=== PATIENT | male | born 1950 | race African-American/Black ===

== ENCOUNTER 2017-01-08 05:15 | Inpatient (IN) | payer MEDICARE, BC ==
--- NOTE | 2017-01-03 12:44 | Diagnostic Imaging Report ---
Indication: Dyspnea Comparison: 09/20/13 2 views of the chest obtained. Findings: Cardiomediastinal silhouette and pulmonary vascularity are within normal limits for age. The diaphragmatic contour is smooth and costophrenic angles are sharp. No pleural effusions are identified. The bones are unremarkable. Impression: No acute disease
[~2017-01-08] VITALS: Ht 175.3 cm; Wt 96.6 kg
[2017-01-08] VITALS (13 sets, daily range): BP systolic 125–147; BP diastolic 72–88
[~2017-01-08 05:15] MED LIST: ACTOS45 MG ORAL; ASPIR 8181 MG ORAL; AZOR 10-40 MG1 EACH ORAL; BYSTOLIC20 MG ORAL; COLCHICINE0.6 MG ORAL; HYDRALAZINE HC100 MG ORAL; JANUVIA100 MG ORAL; LANTUS SOL100 UNIT/1 SUBQ; LIPITOR80 MG ORAL
[2017-01-08] MEDS ORDERED: Morphine Sulfate PF 10 ML ONE (06:32)
[2017-01-08] MEDS ORDERED: Ropivacaine 5mg/ml Vial 20ml INJ ONE (06:32)
[2017-01-08] MEDS ORDERED: Bupivacaine 0.5% Inj 30 ml vial INJ ONE (06:32)
[2017-01-08] MEDS ORDERED: Bacitracin 50000 Units Vial ONE (06:47)
--- NOTE | 2017-01-08 07:28 | Pre-Procedure Note/Attestation ---
Pre-Procedure Note/Attestation Complete Prior to Procedure Planned Procedure: right Procedure Narrative: right knee replacement Indications for Procedure Pre-Operative Diagnosis: right knee arthritis Attestation I attest that I discussed the nature of the procedure; its benefits; risks and complications; and alternatives (and the risks and benefits of such alternatives ), prior to the procedure, with the patient (or the patient's legal veterans service representative). I attest that, if there was a reasonable possibility of needing a blood transfusion, the patient (or the patient's legal veterans service representative) was given the [facility] standardized written summary, pursuant to the [place] Blood Safety Act ([place] Health and Safety Code # 1645, as amended). I attest that I re-evaluated the patient just prior to the surgery and that there has been no change in the patient's H&P, except as documented below: ADELAIDA MOORE Jan 08, 2017 07:28
[2017-01-08] MEDS ORDERED: Meperidine 25mg/ml Inj IV PRN (07:30)
[2017-01-08] MEDS ORDERED: Metoclopramide 10mg/2ml Inj IVP PRN (07:30)
[2017-01-08] MEDS ORDERED: Oxycodone/Acetaminophen 5-325 ORAL PRN (07:30)
[2017-01-08] MEDS ORDERED: Norco 5mg/325mg tab ORAL PRN (07:30)
[2017-01-08] MEDS ORDERED: Hydromorphone 0.5mg/0.5ml inj IVP PRN (07:30)
[2017-01-08] MEDS ORDERED: LR 1000ml 1,000 ML IVLG SCH (07:30)
[2017-01-08] MEDS ORDERED: LORazepam Inj 2mg/ml 1ml IV PRN (07:30)
[2017-01-08] MEDS ORDERED: Midazolam 2mg/2ml Inj IVP PRN (07:30)
[2017-01-08] MEDS ORDERED: Ketorolac 30mg Inj IV PRN (07:30)
[2017-01-08] MEDS ORDERED: DiphenhydrAMINE 50mg/ml Inj IVP PRN (07:30)
[2017-01-08] MEDS ORDERED: Ketorolac 60mg Inj IV PRN (07:30)
[2017-01-08] MEDS ORDERED: fentaNYL 100 mcg/2 mL IV PRN (07:30)
[2017-01-08] MEDS ORDERED: Norco 7.5mg/325mg tab ORAL PRN (07:30)
[2017-01-08] MEDS ORDERED: Atropine Inj 1mg/10ml Syr IV PRN (07:30)
[2017-01-08] MEDS ORDERED: Labetalol 5mg/ml 20ml vial IV PRN (07:30)
[2017-01-08] MEDS ORDERED: Morphine Sulfate 2mg/ml Inj IVP PRN ×2 (07:30)
--- NOTE | 2017-01-08 07:30 | Anethesia Preoperative Eval ---
Anesthesia Pre-op PMH/ROS General Date of Evaluation: Jan 08, 2017 Time of Evaluation: 07:41 Anesthesiologist: Rah ASA Score: ASA 3 Mallampati Score Class I : Soft palate, uvula, fauces, pillars visible Class II: Soft palate, uvula, fauces visible Class III: Soft palate, base of uvula visible Class IV: Only hard plate visible Mallampati Classification: Class III Surgeon: Ac Diagnosis: R Knee Pain Surgical Procedure: R Knee Arthroplasty Anesthesia History: none Family History: no anesthesia problems Allergies: Coded Allergies: No Known Allergies (Verified Allergy, Mild, 09/15/09) Medications: see eMAR Past Medical History Cardiovascular: Reports: HTN, other - HL Endocrine: Reports: DM - FBS 365, will rx with insulin HEENT: Reports: cataract (L), cataract (R), glaucoma, other - Diabetic retinopathy Other: obesity - BMI 32 PSxH Narrative: Cataract SX Anesthesia Pre-op Phys. Exam Physician Exam Last Vital Signs Date Time Temp Pulse Resp B/P Pulse Ox O2 Delivery O2 Flow Rate FiO2 01/08/17 06:07 98.0 70 18 130/73 100 Room Air Constitutional: NAD Neurologic: CN 2-12 intact Cardiovascular: RRR Respiratory: CTA Gastrointestinal: S/NT/ND Airway Exam Mallampati Score: Class III MO: full ROM: limited Teeth: missing, intact Anesthesia Pre-op A/P Risk Assessment & Plan Assessment: ASA 3 Plan: GA, Spinal, R Adductor Block, BIS Status Change Before Surgery: No Pre-Antibiotics Dru Grams Ancef IV Given Within 1 Hr of Incision: Yes Time Given: 08:11 Galindo Monreal MD Jan 08, 2017 07:30
--- NOTE | 2017-01-08 07:32 | Immediate Post-Op Evaluation ---
Immediate Post-Op Evalulation Immediate Post-Op Evalulation Procedure: R Knee Arthroplasty Date of Evaluation: Jan 08, 2017 Time of Evaluation: 10:05 IV Fluids: 1100 Blood Products: 0 Estimated Blood Loss: 37 Urinary Output: 200 Blood Pressure Systolic: 132 Blood Pressure Diastolic: 76 Pulse Rate: 75 Respiratory Rate: 16 O2 Sat by Pulse Oximetry: 100 Temperature (Fahrenheit): 97 Pain Score (1-10): 1 Nausea: No Vomiting: No Complications 0 Patient Status: awake, reacts, patent, none Hydration Status: adequate Dru Grams Ancef IV Given Within 1 Hr of Incision: Yes Time Given: 08:11 Galindo Monreal MD Jan 08, 2017 07:32
[2017-01-08] MEDS ORDERED: Alfentanil 2ml Inj ONE (07:40)
[2017-01-08] MEDS ORDERED: LR 1000ml ONE (07:40)
[2017-01-08] MEDS ORDERED: Lidocaine 1% MPF 10mg/ml 5ml ONE (07:40)
[2017-01-08] MEDS ORDERED: Propofol 10mg/ml 20ml IV ONE (07:40)
[2017-01-08] MEDS ORDERED: Midazolam 2mg/2ml Inj ONE (07:40)
[2017-01-08] MEDS ORDERED: Tranexamic Acid 1,000 MG in NS 65 ML IVPB ONE (09:00)
--- NOTE | 2017-01-08 09:20 | Brief Operative Note ---
Immediate Post Operative Note Operative Note Pre-op Diagnosis: right knee arthritis Procedure: right knee pain Post-op Diagnosis: right knee repalcement Post-op Diagnosis: same as pre-op Surgeon: nati Anesthesia: general Specimen: yes Complications: none Condition: stable Estimated Blood Loss: minimal Drains: none Tourniquet time: 0 Implant(s) used?: Yes ADELAIDA MOORE Jan 08, 2017 09:20
[2017-01-08] MEDS ORDERED: D5W 250 ML IVPB ONE (11:00)
--- NOTE | 2017-01-08 11:51 | Diagnostic Imaging Report ---
Indication: PREOP, pain Technique: 3 views of the right knee Comparison: CT scan dated 07/24/2016 Findings:There is a superior pole patellar osteophyte. There are are degenerative changes of the lateral joint compartment. This appears slightly worse than on the prior CT There 2 ossific densities are seen posteriorly on the lateral view. 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 This questionably a small suprapatellar effusion. Impression:No acute process. Findings as noted above, including degenerative changes as described
[2017-01-08 14:51] LABS: MEAN CORPUSCULAR HEMOGLOBIN 28.1 PG (27.0-31.0); MEAN CORPUSCULAR HGB CONC 32.4 G/DL (32.0-36.0); MEAN CORPUSCULAR VOLUME 87 FL (80-99); MEAN PLATELET VOLUME 8.4 FL (6.5-10.1); PLATELET COUNT 210 K/UL (150-450); RED BLOOD COUNT 4.34 M/UL (4.70-6.10); RED CELL DISTRIBUTION WIDTH 11.6 % (11.6-14.8); WHITE BLOOD COUNT 11.3 K/UL (4.8-10.8)
[2017-01-08 15:54] LABS: BAND NEUTROPHILS % (MANUAL) 3 % (0-8); LYMPHOCYTES % (MANUAL) 5 % (20-45); NEUTROPHILS % (MANUAL) 90 % (45-75); TOTAL CELLS COUNTED 100
[2017-01-08 15:55] LABS: BASOPHILS % (MANUAL) 0 % (0-2); EOSINOPHILS % (MANUAL) 0 % (0-3); PLATELET ESTIMATE ADEQUATE; PLATELET MORPHOLOGY NORMAL
--- NOTE | 2017-01-08 16:16 | Diagnostic Imaging Report ---
Indications: Postoperative Technique: Two views of the right knee Comparison:None Findings: Two postoperative views of the right knee demonstrate total knee arthroplasty, good anatomic alignment of the prosthesis. There is postsurgical soft tissue air. Overlying skin tigre. Impression: Postoperative right knee, no unusual features.
--- NOTE | 2017-01-08 16:24 | General Progress Note ---
Assessment/Plan Assessment/Plan TKR OA CRF DM HTN HHD Obesity PLAN 1. incentive spirometry 2. Lovenox in am 3. PT evaluation and therapy 4. Hydration 5. Pain management 6. discharge once stable with outpatient follow up 7. resume home meds 8. SSI 9. blood pressure support Subjective Allergies: Coded Allergies: No Known Allergies (Verified Allergy, Mild, 09/15/09) Subjective care noted and reviewed seen post op orders written Objective Last 24 Hour Vital Signs Date Time Temp Pulse Resp B/P Pulse Ox O2 Delivery O2 Flow Rate FiO2 01/08/17 12:45 97.5 66 18 142/77 100 Room Air 01/08/17 12:30 64 15 145/82 98 Room Air 01/08/17 11:15 69 17 133/78 100 Room Air 01/08/17 11:00 66 14 137/76 99 Room Air 01/08/17 10:50 70 15 126/77 100 Room Air 01/08/17 10:40 69 18 132/75 99 Room Air 01/08/17 10:25 73 16 125/72 99 Room Air 01/08/17 10:10 75 17 128/73 99 Simple Mask 6.0 01/08/17 10:05 77 15 133/78 100 Simple Mask 6.0 01/08/17 09:56 75 16 100 01/08/17 09:54 97.0 79 18 136/76 99 Simple Mask 6.0 01/08/17 06:07 98.0 70 18 130/73 100 Room Air Laboratory Tests 01/08/17 14:36: White Blood Count 11.3H, Red Blood Count 4.34L, Hemoglobin 12.2L, Hematocrit 37.6L, Mean Corpuscular Volume 87, Mean Corpuscular Hemoglobin 28.1, Mean Corpuscular Hemoglobin Concent 32.4, Red Cell Distribution Width 11.6, Platelet Count 210, Mean Platelet Volume 8.4, Neutrophils (%) (Auto) , Lymphocytes (%) ( Auto) , Monocytes (%) (Auto) , Eosinophils (%) (Auto) , Basophils (%) (Auto) , Differential Total Cells Counted 100, Neutrophils % (Manual) 90H, Lymphocytes % (Manual) 5L, Monocytes % (Manual) 2, Eosinophils % (Manual) 0, Basophils % ( Manual) 0, Band Neutrophils 3, Platelet Estimate Adequate, Platelet Morphology Normal, Red Blood Cell Morphology Normal, Prothrombin Time 10.0, Prothromb Time International Ratio 1.0 Height (Feet): 5 Height (Inches): 9.00 Weight (Pounds): 213 Objective WDWN NAD clear breath sounds bilaterally without rhonchi or wheeze [id number] without MRG NABS nontender no HSM no CC; mild edema nonfocal awake and alert EOMI SHAYAN LARSON Jan 08, 2017 16:24
[2017-01-08] MEDS: ceFAZolin sod 1 GM in NS 55 ML IV SCH (16:27)
[2017-01-08] MEDS: D5 1/2NS w/KCl 20mEq 1,000 ML IV SCH (16:27)
[2017-01-08] MEDS: NovoLOG Insulin Flexpen SUBQ SCH ×2 (16:31→21:23)
[2017-01-08] MEDS: Atorvastatin 80mg tab ORAL SCH (21:00)
[2017-01-08] MEDS: Levemir Flexpen SUBQ SCH (21:25)
[2017-01-09] VITALS: BP 145/89
[2017-01-09] MEDS: ceFAZolin sod 1 GM in NS 55 ML IV SCH (00:11)
[2017-01-09] MEDS: D5 1/2NS w/KCl 20mEq 1,000 ML IV SCH ×3 (00:12→22:00)
[2017-01-09 04:00] VITALS: BP 158/84
[2017-01-09] MEDS: NovoLOG Insulin Flexpen SUBQ SCH ×4 (06:08→21:00)
[2017-01-09 06:57] LABS: PROTHROMBIN TIME 10.3 SEC (9.30-11.50)
[2017-01-09 07:02] LABS: BASOPHILS % (AUTO) 0.4 % (0.0-2.0); LYMPHOCYTES % (AUTO) 9.2 % (20.0-45.0); MEAN CORPUSCULAR HGB CONC 33.1 G/DL (32.0-36.0); MEAN CORPUSCULAR VOLUME 88 FL (80-99); MEAN PLATELET VOLUME 9.4 FL (6.5-10.1); MONOCYTES % (AUTO) 9.3 % (1.0-10.0); NEUTROPHILS % (AUTO) 81.2 % (45.0-75.0); PLATELET COUNT 189 K/UL (150-450); RED BLOOD COUNT 4.07 M/UL (4.70-6.10); RED CELL DISTRIBUTION WIDTH 12.3 % (11.6-14.8); WHITE BLOOD COUNT 10.6 K/UL (4.8-10.8)
--- NOTE | 2017-01-09 08:20 | General Progress Note ---
Assessment/Plan Assessment/Plan TKR OA CRF DM HTN HHD Obesity PLAN 1. incentive spirometry 2. Lovenox in am 3. PT evaluation and therapy 4. Hydration 5. Pain management 6. discharge once stable with outpatient follow up 7. resume home meds 8. SSI 9. blood pressure support close follow up and adjustments of medications as needed home dc and home health when improved Subjective Allergies: Coded Allergies: No Known Allergies (Verified Allergy, Mild, 09/15/09) Subjective care noted and reviewed seen post op orders written sugars overall controlled Objective Last 24 Hour Vital Signs Date Time Temp Pulse Resp B/P Pulse Ox O2 Delivery O2 Flow Rate FiO2 01/09/17 04:00 97.9 74 20 158/84 100 01/09/17 00:00 97.3 79 20 145/89 96 Room Air 01/08/17 20:00 96.4 73 20 147/88 98 Room Air 01/08/17 16:00 97.0 73 20 147/80 96 Room Air 01/08/17 12:45 97.5 66 18 142/77 100 Room Air 01/08/17 12:30 64 15 145/82 98 Room Air 01/08/17 11:15 69 17 133/78 100 Room Air 01/08/17 11:00 66 14 137/76 99 Room Air 01/08/17 10:50 70 15 126/77 100 Room Air 01/08/17 10:40 69 18 132/75 99 Room Air 01/08/17 10:25 73 16 125/72 99 Room Air 01/08/17 10:10 75 17 128/73 99 Simple Mask 6.0 01/08/17 10:05 77 15 133/78 100 Simple Mask 6.0 01/08/17 09:56 75 16 100 01/08/17 09:54 97.0 79 18 136/76 99 Simple Mask 6.0 Intake and Output 01/08/17 01/09/17 18:59 06:59 Intake Total 1200 ml Output Total 970 ml Balance 230 ml Intake Oral 500 ml IV Total 700 ml Output Urine Total 800 ml Emesis 170 ml Laboratory Tests 01/08/17 14:36: White Blood Count 11.3H, Red Blood Count 4.34L, Hemoglobin 12.2L, Hematocrit 37.6L, Mean Corpuscular Volume 87, Mean Corpuscular Hemoglobin 28.1, Mean Corpuscular Hemoglobin Concent 32.4, Red Cell Distribution Width 11.6, Platelet Count 210, Mean Platelet Volume 8.4, Neutrophils (%) (Auto) , Lymphocytes (%) ( Auto) , Monocytes (%) (Auto) , Eosinophils (%) (Auto) , Basophils (%) (Auto) , Differential Total Cells Counted 100, Neutrophils % (Manual) 90H, Lymphocytes % (Manual) 5L, Monocytes % (Manual) 2, Eosinophils % (Manual) 0, Basophils % ( Manual) 0, Band Neutrophils 3, Platelet Estimate Adequate, Platelet Morphology Normal, Red Blood Cell Morphology Normal, Prothrombin Time 10.0, Prothromb Time International Ratio 1.0 01/09/17 06:00: White Blood Count 10.6, Red Blood Count 4.07L, Hemoglobin 11.8L, Hematocrit 35.7L, Mean Corpuscular Volume 88, Mean Corpuscular Hemoglobin 29.0, Mean Corpuscular Hemoglobin Concent 33.1, Red Cell Distribution Width 12.3, Platelet Count 189, Mean Platelet Volume 9.4, Neutrophils (%) (Auto) 81.2H, Lymphocytes ( %) (Auto) 9.2L, Monocytes (%) (Auto) 9.3, Eosinophils (%) (Auto) 0.0, Basophils (%) (Auto) 0.4, Prothrombin Time 10.3, Prothromb Time International Ratio 1.0 Height (Feet): 5 Height (Inches): 9.00 Weight (Pounds): 213 Objective WDWN NAD clear breath sounds bilaterally without rhonchi or wheeze [id number] without MRG NABS nontender no HSM no CC; mild edema nonfocal awake and alert SHAYAN DYER Jan 09, 2017 08:20
[2017-01-09] MEDS: Aspirin EC 81mg tab ORAL SCH (08:44)
[2017-01-09] MEDS: Irbesartan 150mg tablet ORAL SCH (08:45)
[2017-01-09] MEDS: Enoxaparin 40mg Inj SUBQ SCH (08:49)
--- NOTE | 2017-01-09 09:43 | 48 Hour Post Anesthesia Eval ---
Post Anesthesia Evaluation Procedure: R Knee Arthroplasty Date of Evaluation: Jan 09, 2017 Time of Evaluation: 09:42 Blood Pressure Systolic: 130 0: 80 Pulse Rate: 86 Respiratory Rate: 20 Temperature (Fahrenheit): 98.3 O2 Sat by Pulse Oximetry: 97 Airway: patent Nausea: No Vomiting: No Pain Intensity: 3 Hydration Status: adequate Cardiopulmonary Status: stable Mental Status/LOC: patient returned to baseline Follow-up Care/Observations: na Post-Anesthesia Complications: na Follow-up care needed: N/A RAFI RIDLEY M.D. Jan 09, 2017 09:43
[2017-01-09] MEDS ORDERED: Artificial Tears 1.4% Op Soln BOTH EYES PRN (10:45)
[2017-01-09 16:00] VITALS: BP 113/61
[2017-01-09] MEDS: HydrALAZINE 50mg tab ORAL SCH (18:03)
[2017-01-09] MEDS: Norco 7.5mg/325mg tab ORAL PRN (19:11)
[2017-01-09 20:00] VITALS: BP 127/71
[2017-01-09] MEDS: Atorvastatin 80mg tab ORAL SCH (20:54)
[2017-01-09] MEDS: Levemir Flexpen SUBQ SCH (20:59)
[2017-01-10] VITALS (8 sets, daily range): BP systolic 134–154; BP diastolic 70–92
[2017-01-10] MEDS: D5 1/2NS w/KCl 20mEq 1,000 ML IV SCH (00:01)
[2017-01-10] MEDS: Morphine Sulfate 4mg/ml Inj IVP PRN ×3 (00:12→16:31)
[2017-01-10] MEDS: NovoLOG Insulin Flexpen SUBQ SCH ×4 (06:22→20:24)
[2017-01-10 06:29] LABS: PROTHROMBIN TIME 10.3 SEC (9.30-11.50)
--- NOTE | 2017-01-10 08:01 | General Progress Note ---
Progress Note Progress Note doing well neuro vasc intact xrays perfect' incision clear no calf pain continue rx ADELAIDA MOORE Jan 10, 2017 08:01
--- NOTE | 2017-01-10 08:29 | General Progress Note ---
Assessment/Plan Assessment/Plan TKR OA CRF DM HTN HHD Obesity PLAN 1. incentive spirometry 2. Lovenox in am 3. PT evaluation and therapy 4. Hydration- start IV 5. Pain management 6. discharge once stable with outpatient follow up; will follow up 7. resumed home meds 8. SSI; long acting insulin 9. blood pressure support close follow up and adjustments of medications as needed home dc and home health when improved Subjective Allergies: Coded Allergies: No Known Allergies (Verified Allergy, Mild, 09/15/09) Subjective care noted and reviewed seen post op orders written sugars adequate poor urine output Objective Last 24 Hour Vital Signs Date Time Temp Pulse Resp B/P Pulse Ox O2 Delivery O2 Flow Rate FiO2 01/10/17 04:00 96.1 92 18 147/90 98 Room Air 01/10/17 00:00 98.8 91 18 145/85 96 Room Air 01/09/17 20:10 98.4 01/09/17 20:00 98.4 82 17 127/71 95 Room Air 01/09/17 18:03 113/61 01/09/17 16:22 98.1 01/09/17 16:00 98.1 73 17 113/61 95 Room Air 01/09/17 09:43 86 20 97 01/09/17 08:45 121/87 01/09/17 08:44 94 128/87 Intake and Output 01/09/17 01/10/17 19:00 07:00 Intake Total 1550 ml 1850 ml Output Total 300 ml 650 ml Balance 1250 ml 1200 ml Intake Oral 550 ml 650 ml IV Total 1000 ml 1200 ml Output Urine Total 300 ml 650 ml Laboratory Tests 01/10/17 05:05: Prothrombin Time 10.3, Prothromb Time International Ratio 1.0 Height (Feet): 5 Height (Inches): 9.00 Weight (Pounds): 213 Objective WDWN NAD clear breath sounds bilaterally without rhonchi or wheeze [id number] without MRG NABS nontender no HSM no CC; mild edema without change nonfocal awake and alert SHAYAN DYER Jan 10, 2017 08:29
[2017-01-10] MEDS: Irbesartan 150mg tablet ORAL SCH (08:30)
[2017-01-10] MEDS: Aspirin EC 81mg tab ORAL SCH (08:30)
[2017-01-10] MEDS: HydrALAZINE 50mg tab ORAL SCH ×2 (08:31→17:30)
[2017-01-10] MEDS: Enoxaparin 40mg Inj SUBQ SCH (08:35)
[2017-01-10 10:01] LABS: CALCIUM 8.1 mg/dL (8.6-10.2); CREATININE 3.6 mg/dL (0.7-1.2); GLOMERULAR FILTRATION RATE 20.6 mL/min (>60); POTASSIUM 5.4 mEQ/L (3.4-4.9)
[2017-01-10] MEDS ORDERED: Tubing IV Secondary IV ONE (10:20)
[2017-01-10] MEDS: Atorvastatin 80mg tab ORAL SCH (20:19)
[2017-01-10] MEDS: Levemir Flexpen SUBQ SCH (20:22)
--- NOTE | 2017-01-10 21:17 | Operative Note - Dictated ---
DATE OF OPERATION: 01/10/2017 NOTE: POOR AUDIO FACILITY: [facility]. PREOPERATIVE DIAGNOSIS: End-stage osteoarthritis of the right knee. POSTOPERATIVE DIAGNOSIS: End-stage osteoarthritis of the right knee. PROCEDURE: Right total knee replacement with Persona Ruthie knee. SURGEON: Pedro Shen M.D. COUNTY PROGRAM TECHNICIAN: Unknown. PREOPERATIVE NOTE: This is a pleasant gentleman, who has been having severe pain in the knees secondary to pain with walking, tear, failed conservative treatment. I explained to him the surgery and the risks being infection, bleeding, anesthetic risks, neurovascular damage, DVT, PE, and failure of the operation. The patient agreed. Consents were obtained. OPERATIVE ROOM NOTE: Under local anesthesia and endotracheal intubation, the patient's knee was prepped and draped in appropriate manner. The patient was given a gram of Ancef. A midline incision was made down through medial retinaculum and inverted the patella after everting the patella. I removed osteophytes. A synovectomy was done. There is a flexion contracture more millimeters up to distal femur. secondary to the possibility of the flexion contracture is added on. I then lined up ___ distal femur with distal femur fracture size is to be 10 mm LED hose. Then, went to the proximal tibia taking 2 mm of the low side, which is medial both in ____ and then proceeded to tibial plateau cut. After doing such, the 10 in flexion and extension and seemed to be perfect. flexion with no mid flexion with ____. The patella was perfectly , so planned around the patella osteophytes. I irrigated the wound copiously with a pulse lavage full range of motion and is very clean. I irrigated the wound copiously. I then closed the medial retinaculum with #1 Vicryl, subcutaneous tissue with 2-0 Vicryl, and skin with tigre. The patient went to recovery room in stable condition. Bal Wolf Shen DR: BARBARA JOB#: [id number] CC:
[2017-01-11 00:55] VITALS: BP 148/75
[2017-01-11 04:00] VITALS: BP 145/84
[2017-01-11] MEDS: NovoLOG Insulin Flexpen SUBQ SCH ×4 (06:30→20:42)
[2017-01-11 07:10] LABS: PROTHROMBIN TIME 10.4 SEC (9.30-11.50)
[2017-01-11 07:27] LABS: CALCIUM 8.4 mg/dL (8.6-10.2); CREATININE 3.8 mg/dL (0.7-1.2); GLOMERULAR FILTRATION RATE 19.4 mL/min (>60); POTASSIUM 5.1 mEQ/L (3.4-4.9)
[2017-01-11] MEDS ORDERED: Sodium Polystyrene Sulfonate 15gm Powder ORAL ONE (08:00)
[2017-01-11 08:01] VITALS: BP 155/98
[2017-01-11] MEDS: HydrALAZINE 50mg tab ORAL SCH ×2 (08:30→17:06)
[2017-01-11] MEDS: Aspirin EC 81mg tab ORAL SCH (08:31)
[2017-01-11] MEDS: Irbesartan 150mg tablet ORAL SCH (08:31)
[2017-01-11] MEDS: Enoxaparin 30mg Inj SUBQ SCH (08:33)
--- NOTE | 2017-01-11 09:12 | General Progress Note ---
Assessment/Plan Assessment/Plan TKR OA CRF DM HTN HHD Obesity PLAN 1. incentive spirometry 2. Lovenox 3. PT therapy 4. Hydration encouraged 5. Pain management 6. discharge once stable and K better 7. resumed home meds 8. SSI; long acting insulin 9. blood pressure support 10. kayexalate x 1 close follow up and adjustments of medications as needed home dc and home health when improved Subjective Allergies: Coded Allergies: No Known Allergies (Verified Allergy, Mild, 09/15/09) Subjective care noted and reviewed orders written improved UO k elevated Objective Last 24 Hour Vital Signs Date Time Temp Pulse Resp B/P Pulse Ox O2 Delivery O2 Flow Rate FiO2 01/11/17 08:31 155/90 01/11/17 08:30 91 155/90 01/11/17 08:30 155/90 01/11/17 08:01 97.5 91 18 155/98 95 Room Air 01/11/17 04:00 98.2 91 19 145/84 95 Room Air 01/11/17 00:55 98.2 100 20 148/75 94 Room Air 01/10/17 21:07 98.2 101 20 142/85 94 Room Air 01/10/17 20:00 98.2 101 20 142/85 94 Room Air 01/10/17 17:30 142/87 01/10/17 16:00 96.5 105 20 142/87 94 Room Air 01/10/17 12:04 97.9 103 19 134/70 98 Room Air Intake and Output 01/10/17 01/11/17 19:00 07:00 Intake Total 1200 ml 440 ml Output Total 4 ml 925 ml Balance 1196 ml -485 ml Intake Oral 900 ml 440 ml IV Total 300 ml Output Urine Total 4 ml 925 ml # Bowel Movements 1 Laboratory Tests 01/11/17 05:10: Prothrombin Time 10.4, Prothromb Time International Ratio 1.0, Sodium Level 137 , Potassium Level 5.1H, Chloride Level 102, Carbon Dioxide Level 18L, Anion Gap 17H, Blood Urea Nitrogen 46H, Creatinine 3.8H, Estimat Glomerular Filtration Rate 19.4, Glucose Level 75#, Calcium Level 8.4L Height (Feet): 5 Height (Inches): 9.00 Weight (Pounds): 213 Objective WDWN NAD clear breath sounds bilaterally without rhonchi or wheeze [id number] without MRG NABS nontender no HSM no CC; mild edema without change nonfocal awake and alert EOMI SHAYAN LARSON Jan 11, 2017 09:12
[2017-01-11 12:02] VITALS: BP 150/89
[2017-01-11 16:00] VITALS: BP 143/85
[2017-01-11] MEDS: Norco 7.5mg/325mg tab ORAL PRN (18:52)
[2017-01-11 20:00] VITALS: BP 123/67
[2017-01-11] MEDS: Atorvastatin 80mg tab ORAL SCH (20:37)
[2017-01-11] MEDS: Levemir Flexpen SUBQ SCH (20:40)
[2017-01-12 00:04] VITALS: BP 117/63
[2017-01-12 04:00] VITALS: BP 140/72
[2017-01-12] MEDS: NovoLOG Insulin Flexpen SUBQ SCH ×3 (05:51→17:15)
[2017-01-12 07:00] LABS: PROTHROMBIN TIME 10.5 SEC (9.30-11.50)
[2017-01-12] MEDS: Norco 7.5mg/325mg tab ORAL PRN (07:28)
[2017-01-12 08:20] VITALS: BP 148/86
[2017-01-12] MEDS: Irbesartan 150mg tablet ORAL SCH (09:18)
[2017-01-12] MEDS: HydrALAZINE 50mg tab ORAL SCH ×2 (09:19→17:14)
[2017-01-12] MEDS: Aspirin EC 81mg tab ORAL SCH (09:19)
[2017-01-12] MEDS: Enoxaparin 30mg Inj SUBQ SCH (09:20)
--- NOTE | 2017-01-12 09:25 | General Progress Note ---
Assessment/Plan Assessment/Plan TKR OA CRF DM HTN HHD Obesity PLAN 1. incentive spirometry 2. Lovenox as is 3. PT therapy 4. Hydration encouraged 5. Pain management 6. discharge today if agreeable 7. resumed home meds 8. SSI; long acting insulin 9. blood pressure support 10. kayexalate given close follow up and adjustments of medications as needed home dc and home health when improved Subjective Allergies: Coded Allergies: No Known Allergies (Verified Allergy, Mild, 09/15/09) Subjective care noted and reviewed orders written improved ambulation Objective Last 24 Hour Vital Signs Date Time Temp Pulse Resp B/P Pulse Ox O2 Delivery O2 Flow Rate FiO2 01/12/17 09:20 97.0 01/12/17 09:19 148/86 01/12/17 09:18 148/86 01/12/17 09:17 94 148/86 01/12/17 08:20 97.0 94 20 148/86 94 Room Air 01/12/17 04:00 97.8 93 20 140/72 96 Room Air 01/12/17 00:04 98.2 89 19 117/63 95 Room Air 01/11/17 20:00 98.4 104 20 123/67 96 Room Air 01/11/17 17:06 143/85 01/11/17 16:00 99.5 102 20 143/85 94 Room Air 01/11/17 12:02 99.0 94 20 150/89 97 Room Air Intake and Output 01/11/17 01/12/17 19:00 07:00 Intake Total 900 ml 720 ml Output Total 200 ml 400 ml Balance 700 ml 320 ml Intake Oral 900 ml 720 ml Output Urine Total 200 ml 400 ml # Voids 3 Laboratory Tests 01/12/17 06:15: Prothrombin Time 10.5, Prothromb Time International Ratio 1.0 Height (Feet): 5 Height (Inches): 9.00 Weight (Pounds): 213 Objective WDWN NAD clear breath sounds bilaterally without rhonchi or wheeze [id number] without MRG NABS nontender no HSM no CC; mild edema without change nonfocal awake and alert SHAYAN DYER Jan 12, 2017 09:25
[2017-01-12 11:54] VITALS: BP 128/68
[2017-01-12] MEDS: Morphine Sulfate 4mg/ml Inj IVP PRN (15:02)
[2017-01-12 16:17] VITALS: BP 127/78
[2017-01-12 17:14] VITALS: BP 127/78
--- NOTE | 2017-01-13 10:00 | Discharge Summary ---
Discharge Summary Hospital Course Date of Admission Jan 08, 2017 at 05:15 Date of Discharge Jan 12, 2017 at 18:46 Admitting Diagnosis Total Knee Replacement HPI Eduardo Lobo is a 66 year old male who was admitted on Jan 08, 2017 at 05:15 for Right Knee Osteoarthritis This is a pleasant gentleman, who has been having severe pain in the knees secondary to pain with walking, a tear, failed conservative treatment. The patient was explained about the surgery and the risks being infection, bleeding, anesthetic risks, neurovascular damage, DVT, PE, and failure of the operation. The patient agreed. Consents were obtained. Consultations Primary Cover: Lazaro Franks MD Procedures DATE OF OPERATION: 01/10/2017 FACILITY: [facility]. PREOPERATIVE DIAGNOSIS: End-stage osteoarthritis of the right knee. POSTOPERATIVE DIAGNOSIS: End-stage osteoarthritis of the right knee. PROCEDURE: Right total knee replacement with Persona Ruthie knee. SURGEON: Pedro Shen M.D. Hospital Course Patient admitted 01/08/17 for TKR with no complications. Intiial Assessment/Plan TKR OA CRF DM HTN HHD Obesity PLAN 1. incentive spirometry 2. Lovenox in am 3. PT evaluation and therapy 4. Hydration 5. Pain management 6. discharge once stable with outpatient follow up 7. resume home meds 8. SSI 9. blood pressure support Patient had worked with physical therapy during course. PT NOTE CONSULT RECEIVED, EVAL COMPLTED, PATIENT WILL BENEFIT FROM SKILLED PT DURING STAY FOR RETURN TO PLOF. PATIENT WILL BE SEEN7X/WEEK BID 2 WEEKS. KNEE ROM RLE 5 -80 DEGREES. ENDORSED TO NURSING FOR TOWEL ROLL AT HEEL, LE BED FUNCTION LOCKED TO PROMOTE TERMINAL KNEE EXTENSION. CPM MACHINE APPLIED. RECOMMEND HOME AT DC. PLAN OF CARE INITIATED. Final Assessment/Plan TKR OA CRF DM HTN HHD Obesity PLAN 1. incentive spirometry 2. Lovenox as is 3. PT therapy 4. Hydration encouraged 5. Pain management 6. discharge today if agreeable 7. resumed home meds 8. SSI; long acting insulin 9. blood pressure support 10. Kayexalate given close follow up and adjustments of medications as needed home dc and home health when improved Patient discharged from the unit stable condition with a friend all belongings given to patient including front wheel walker and knee brace, transported from the unit to private vehicle by wheelchair transferred safely. Discharge Condition Upon Discharge: stable Discharge Disposition Patient was discharged to Home with Home Health(06) Please refer to the nursing medication reconciliation list. Discharge Diagnoses: (1) Osteoarthritis (2) Chronic renal disease (3) Diabetes (4) HTN (hypertension) (5) Hemodialysis patient (6) Obesity Discharge Instructions Discharge Instructions Special Instructions Social Service Note CAN notified of impending dc for today. Home Health follow up with [facility] [phone] (p) [phone] (f). CAN confirmed with Kayley she will be able to arrange for CPM machine. CAN met with pt to discuss dcp. Pt is agreeable with plan. Patient with FWW at bedside. CAN confirmed demographics on face sheet are correct. Family will pick-up pt upon discharge. I have been assigned to the discharge summary of this patient and did not provide any care for the patient. Melissa Hernandez NP, N.P. Jan 13, 2017 10:00
== END 2017-01-12 18:46 | disposition home health service (06) | DRG 470 ==
LOC: SDSOVERFLO 05:15 → 3E 13:26
PROC: 0SRC0J9 Replacement of Right Knee Joint with Synthetic Substitute, Cemented, Open Approach (ICD-10-PCS; principal; 2017-01-10)
DX: M17.11 Unilateral primary osteoarthritis, right knee (principal); E11.21 Type 2 diabetes mellitus with diabetic nephropathy; I13.10 Hypertensive heart and chronic kidney disease without heart failure, with stage 1 through stage 4 chronic kidney disease, or unspecified chronic kidney disease; E78.5 Hyperlipidemia, unspecified; E11.319 Type 2 diabetes mellitus with unspecified diabetic retinopathy without macular edema; H40.9 Unspecified glaucoma; G47.33 Obstructive sleep apnea (adult) (pediatric); Z79.4 Long term (current) use of insulin; N18.9 Chronic kidney disease, unspecified; E66.9 Obesity, unspecified
CPT/HCPCS: 36415; 71020; 80048; 82962; 85007; 85025; 85610; 86850; 86900; 86901; 86920; 87081; 94003; 94150; J1815; J2250; J2405; J3490; S5561

== ENCOUNTER 2017-07-18 09:51 | Outpatient (CLI) | payer MEDICARE, BC ==
--- NOTE | 2017-07-18 14:03 | Diagnostic Imaging Report ---
Indication: Cough Comparison: None 2 views of the chest obtained. Findings: Cardiomediastinal silhouette and pulmonary vascularity are within normal limits for age. The diaphragmatic contour is smooth and costophrenic angles are sharp. No pleural effusions are identified. The bones are unremarkable. Impression: No acute disease
== END 2017-07-18 11:51 | disposition home or self-care (01) ==
LOC: RAD 09:51
DX: R05 Cough (principal)
CPT/HCPCS: 71020

== ENCOUNTER 2018-02-06 10:55 | Inpatient (IN) | payer MEDICARE, BC ==
[~2018-02-06] VITALS: Ht 175.3 cm; Wt 88.5 kg
[2018-02-06 12:10] VITALS: BP 173/122
[2018-02-06] MEDS ORDERED: ALLOPURINOL100 M1 ORAL (12:41)
[2018-02-06] MEDS ORDERED: NORMODYNE100 MG ORAL (12:41)
[2018-02-06] MEDS ORDERED: TRAMADOL HCL50 MG ORAL (12:41)
[2018-02-06] MEDS ORDERED: ATORVASTATIN CA40 MG ORAL (12:41)
[2018-02-06] MEDS ORDERED: traMADol 50mg tab ORAL PRN (13:15)
[2018-02-06] MEDS: HydrALAZINE 50mg tab ORAL SCH ×2 (13:31→21:18)
[2018-02-06 14:30] VITALS: BP 113/70
[2018-02-06 15:23] LABS: BASOPHILS % (AUTO) 1.3 % (0.0-2.0); EOSINOPHILS % (AUTO) 5.2 % (0.0-3.0); HEMATOCRIT 34.9 % (42.0-52.0); HEMOGLOBIN 12.3 G/DL (14.2-18.0); LYMPHOCYTES % (AUTO) 31.5 % (20.0-45.0); MEAN CORPUSCULAR VOLUME 84 FL (80-99); MONOCYTES % (AUTO) 6.3 % (1.0-10.0); NEUTROPHILS % (AUTO) 55.8 % (45.0-75.0); PLATELET COUNT 198 K/UL (150-450); RED BLOOD COUNT 4.17 M/UL (4.70-6.10); WHITE BLOOD COUNT 7.6 K/UL (4.8-10.8)
[2018-02-06 15:51] LABS: ALANINE AMINOTRANSFERASE 16 U/L (12-78); ALBUMIN/GLOBULIN RATIO 0.7 (1.0-2.7); ALKALINE PHOSPHATASE 114 U/L (46-116); ANION GAP 13 mmol/L (5-15); ASPARTATE AMINO TRANSFERASE 11 U/L (15-37); BILIRUBIN,TOTAL 0.4 MG/DL (0.2-1.0); BLOOD UREA NITROGEN 44 mg/dL (7-18); CALCIUM 8.8 MG/DL (8.5-10.1); CARBON DIOXIDE 19 MMOL/L (21-32); CHLORIDE 100 MMOL/L (98-107); CREATININE 4.6 MG/DL (0.55-1.30); POTASSIUM 5.3 MMOL/L (3.5-5.1); SODIUM 132 MMOL/L (136-145)
[2018-02-06 15:53] VITALS: BP 98/66
[2018-02-06] MEDS ORDERED: NovoLOG Insulin Flexpen SUBQ SCH ×3 (16:30→21:00)
--- NOTE | 2018-02-06 17:41 | Diagnostic Imaging Report ---
Indication: Pain Technique: XRAY Chest 1v Comparison: PA and lateral views of the chest 07/18/2017 Findings: Heart size and mediastinal contours are stable. There is no focal airspace consolidation, pleural effusion or pneumothorax. No acute osseous abnormality seen. There is unchanged elevation of the right hemidiaphragm. Impression: No radiographic evidence of acute cardiopulmonary disease. No focal airspace consolidation.
[2018-02-06 20:58] VITALS: BP 120/80
[2018-02-06] MEDS ORDERED: Atorvastatin 80mg tab ORAL SCH (21:00)
[2018-02-06] MEDS ORDERED: Levemir Flexpen SUBQ SCH (21:00)
[2018-02-06] MEDS ORDERED: Heparin 5000 units/ml inj SUBQ SCH (21:00)
[2018-02-07] VITALS: BP 120/77
[2018-02-07] MEDS: NovoLOG Insulin Flexpen SUBQ SCH ×6 (01:12→21:45)
[2018-02-07] MEDS ORDERED: traMADol 50mg tab ORAL PRN ×2 (01:15→14:49)
[2018-02-07 04:00] VITALS: BP 120/76
[2018-02-07] MEDS: HydrALAZINE 50mg tab ORAL SCH ×3 (06:00→21:23)
[2018-02-07 06:01] LABS: ALANINE AMINOTRANSFERASE 14 U/L (12-78); ALBUMIN 2.7 G/DL (3.4-5.0); ALBUMIN/GLOBULIN RATIO 0.7 (1.0-2.7); ALKALINE PHOSPHATASE 90 U/L (46-116); ANION GAP 9 mmol/L (5-15); ASPARTATE AMINO TRANSFERASE 10 U/L (15-37); BILIRUBIN,TOTAL 0.3 MG/DL (0.2-1.0); BLOOD UREA NITROGEN 52 mg/dL (7-18); CALCIUM 8.6 MG/DL (8.5-10.1); CARBON DIOXIDE 23 MMOL/L (21-32); CHLORIDE 104 MMOL/L (98-107); CREATININE 4.8 MG/DL (0.55-1.30); POTASSIUM 4.1 MMOL/L (3.5-5.1); SODIUM 136 MMOL/L (136-145)
[2018-02-07 08:00] VITALS: BP 118/72
[2018-02-07] MEDS ORDERED: Heparin 5000 units/ml inj SUBQ SCH (09:00)
[2018-02-07] MEDS ORDERED: Losartan 50mg tab ORAL SCH (09:00)
[2018-02-07] MEDS ORDERED: Aspirin Baby 81mg ORAL SCH ×2 (09:00)
[2018-02-07] MEDS ORDERED: Allopurinol 100mg Tab ORAL SCH ×2 (09:00)
[2018-02-07] MEDS ORDERED: Levemir Flexpen SUBQ SCH ×3 (09:00→21:00)
[2018-02-07 12:00] VITALS: BP 138/77
[2018-02-07 16:00] VITALS: BP 98/68
--- NOTE | 2018-02-07 17:30 | History and Physical Report ---
DATE OF ADMISSION: 02/06/2018 CHIEF COMPLAINT: Diabetes, out of control and acute renal failure. HISTORY OF PRESENT ILLNESS: The patient is a 67-year-old male. He has a history of hypertension and diabetes. He has been noncompliant with diabetic treatment. He was seen by his primary care physician because of high sugars and is now admitted for further evaluation and care. PAST MEDICAL HISTORY: As above. PAST SURGICAL HISTORY: Includes knee surgery. CURRENT MEDICATIONS: Reconciled and reviewed. ALLERGIES: None. FAMILY HISTORY: Significant for diabetes. SOCIAL HISTORY: Negative for tobacco, ethanol, or drugs. REVIEW OF SYSTEMS: GENERAL: No fever or chills. HEENT: No headaches or visual changes. CARDIOPULMONARY: No chest pain or shortness of breath. GASTROINTESTINAL: No nausea or vomiting. GENITOURINARY: No urgency or frequency. MUSCULOSKELETAL: No joint pain or swelling. NEUROLOGIC: No evidence of seizures. PHYSICAL EXAMINATION: VITAL SIGNS: Temperature 98 degrees, pulse 77, respirations 20, and blood pressure 120/76. GENERAL: The patient is a well-developed male, in no apparent distress. HEART: Regular rate and rhythm. LUNGS: Clear. ABDOMEN: Soft, nontender, and nondistended. EXTREMITIES: Without clubbing, cyanosis, or edema. LABORATORY DATA: Sodium is 132, potassium 5.3, chloride 100, bicarb 19, BUN 44, creatinine was 4.6, and glucose was 562. ASSESSMENT: This is a pleasant male admitted with complaints of diabetes, out of control. 1. Diabetes, out of control. 2. Acute renal failure. 3. Hypertensive heart disease. PLAN: 1. IV hydration. 2. Renal and Endo consultations will be obtained. 3. We will hydrate aggressively. 4. Check renal ultrasound. Aramis Park M.D. DR: KELSIE JOB#: [id number] CC:
[2018-02-07 20:00] VITALS: BP 119/68
[2018-02-07] MEDS ORDERED: Atorvastatin 80mg tab ORAL SCH (21:00)
[2018-02-07] MEDS: Atorvastatin 80mg tab ORAL SCH (21:23)
[2018-02-07] MEDS: Levemir Flexpen SUBQ SCH (21:44)
[2018-02-07] MEDS: Heparin 5000 units/ml inj SUBQ SCH (21:44)
[2018-02-08] VITALS: BP 99/58
[2018-02-08] MEDS: NovoLOG Insulin Flexpen SUBQ SCH ×5 (01:48→20:29)
[2018-02-08 04:00] VITALS: BP 127/71
[2018-02-08] MEDS: HydrALAZINE 50mg tab ORAL SCH (06:34)
[2018-02-08 08:00] VITALS: BP 123/82
--- NOTE | 2018-02-08 08:18 | General Progress Note ---
Assessment/Plan Problem List: (1) Diabetes ICD Codes: E11.9 - Type 2 diabetes mellitus without complications SNOMED: 73741331 (2) Chronic renal disease ICD Codes: N18.9 - Chronic kidney disease, unspecified SNOMED: 879288396 Status: stable, progressing Assessment/Plan ivf follow up labs renal; derrick renal eval Subjective ROS Limited/Unobtainable: No Constitutional: Reports: malaise, weakness HEENT: Reports: no symptoms Cardiovascular: Reports: no symptoms Respiratory: Reports: no symptoms Gastrointestinal/Abdominal: Reports: no symptoms Genitourinary: Reports: no symptoms Neurologic/Psychiatric: Reports: no symptoms Endocrine: Reports: no symptoms Hematologic/Lymphatic: Reports: no symptoms Allergies: Coded Allergies: No Known Allergies (Verified Allergy, Mild, 09/15/09) All Systems: reviewed and negative except above Subjective bs better controlled. await am labs and renal; derrick results renal eval. Objective Last 24 Hour Vital Signs Date Time Temp Pulse Resp B/P (MAP) Pulse Ox O2 Delivery O2 Flow Rate FiO2 02/08/18 06:34 127/71 02/08/18 04:00 93 02/08/18 04:00 99.1 92 20 127/71 98 Room Air 99.1 02/08/18 00:00 99.1 86 20 99/58 97 Room Air 99.1 02/08/18 00:00 82 02/07/18 21:24 81 119/68 02/07/18 21:23 119/68 02/07/18 20:00 81 02/07/18 20:00 98.1 82 20 119/68 97 Room Air 98.1 02/07/18 16:00 98.1 72 18 98/68 97 Room Air 98.1 02/07/18 13:14 138/77 02/07/18 12:00 98.2 76 20 138/77 100 Room Air 98.2 02/07/18 12:00 79 02/07/18 08:59 84 118/72 02/07/18 08:56 84 118/72 Intake and Output 02/07/18 02/08/18 19:00 07:00 Intake Total 500 ml Balance 500 ml IV Total 500 ml # Voids 3 Height (Feet): 5 Height (Inches): 9.00 Weight (Pounds): 195 General Appearance: WD/WN, alert Neck: supple Cardiovascular: normal rate, regular rhythm Respiratory/Chest: chest wall non-tender, lungs clear, normal breath sounds Abdomen: normal bowel sounds, non tender, soft, no organomegaly Edema: no edema noted Arm (L), no edema noted Arm (R), no edema noted Leg (L), no edema noted Leg (R), no edema noted Pedal (L), no edema noted Pedal (R), no edema noted Generalized TANIA DOAN February 08, 2018 08:18
[2018-02-08] MEDS: Aspirin Baby 81mg ORAL SCH (08:49)
[2018-02-08] MEDS: Heparin 5000 units/ml inj SUBQ SCH ×2 (08:52→20:27)
[2018-02-08] MEDS: Levemir Flexpen SUBQ SCH ×2 (08:53→20:28)
[2018-02-08] MEDS ORDERED: Allopurinol 100mg Tab ORAL SCH (09:00)
[2018-02-08 09:51] LABS: ALANINE AMINOTRANSFERASE 14 U/L (12-78); ALBUMIN 2.8 G/DL (3.4-5.0); ALBUMIN/GLOBULIN RATIO 0.7 (1.0-2.7); ALKALINE PHOSPHATASE 84 U/L (46-116); ANION GAP 12 mmol/L (5-15); ASPARTATE AMINO TRANSFERASE 9 U/L (15-37); BILIRUBIN,TOTAL 0.3 MG/DL (0.2-1.0); BLOOD UREA NITROGEN 55 mg/dL (7-18); CALCIUM 8.1 MG/DL (8.5-10.1); CARBON DIOXIDE 19 MMOL/L (21-32); CHLORIDE 105 MMOL/L (98-107); CREATININE 5.3 MG/DL (0.55-1.30); POTASSIUM 4.7 MMOL/L (3.5-5.1); SODIUM 136 MMOL/L (136-145)
[2018-02-08 11:01] LABS: BASOPHILS % (AUTO) 0.8 % (0.0-2.0); EOSINOPHILS % (AUTO) 3.6 % (0.0-3.0); HEMATOCRIT 33.4 % (42.0-52.0); HEMOGLOBIN 11.4 G/DL (14.2-18.0); LYMPHOCYTES % (AUTO) 29.8 % (20.0-45.0); MEAN CORPUSCULAR VOLUME 84 FL (80-99); MONOCYTES % (AUTO) 5.8 % (1.0-10.0); NEUTROPHILS % (AUTO) 60.1 % (45.0-75.0); PLATELET COUNT 203 K/UL (150-450); RED BLOOD COUNT 3.96 M/UL (4.70-6.10); RED CELL DISTRIBUTION WIDTH 11.7 % (11.6-14.8); WHITE BLOOD COUNT 8.8 K/UL (4.8-10.8)
--- NOTE | 2018-02-08 11:56 | Cardiology Report ---
APPROVED REPORT EKG Measurement Heart [id number] Normal sinus rhythm Left axis deviation Nonspecific T wave abnormality Abnormal ECG
[2018-02-08 12:00] VITALS: BP 127/70
[2018-02-08] MEDS: Renagel 400mg cap ORAL SCH ×2 (12:59→17:27)
[2018-02-08 16:00] VITALS: BP 123/72
[2018-02-08 20:00] VITALS: BP 133/80
--- NOTE | 2018-02-08 20:00 | Consultation ---
DATE OF CONSULTATION: 02/08/2018 NEPHROLOGY CONSULTATION ATTENDING PHYSICIAN: Lazaro Franks M.D. REASON FOR CONSULTATION: Elevated BUN and creatinine. HISTORY OF PRESENT ILLNESS: This is a 67-year-old male who was admitted to the hospital by the attending physician due to diabetes out of control and "acute renal failure." On further questioning, the patient has history of type 1 diabetes mellitus and chronic kidney disease due to diabetic nephropathy. The patient is noncompliant with his diabetes. I am asked to see the patient for elevation of BUN and creatinine and his diabetic nephropathy. PAST MEDICAL HISTORY: 1. Type 2 insulin treated diabetes mellitus. 2. Hypertensive cardiovascular disease. 3. Diabetic nephropathy. 4. Diabetic neuropathy. MEDICATIONS: Insulin sliding scale, allopurinol, amlodipine, baby aspirin, Levemir, Januvia, hydralazine, atorvastatin, subcutaneous heparin, labetalol, and tramadol. ALLERGIES: No known drug allergies. FAMILY HISTORY: He has many relatives with type 2 diabetes. He has many relatives with diabetic nephropathy. REVIEW OF SYSTEMS: HEENT: Hearing normal. Eyesight is extremely diminished due to advanced diabetic retinopathy. ENDOCRINE: Significant for type 2 insulin treated diabetes with diabetic retinopathy, nephropathy, and neuropathy. There is no history of thyroid or adrenal problems. RESPIRATORY: Denies shortness of breath, cough, or hemoptysis. CARDIOVASCULAR: Denies chest pain or palpitations. GASTROINTESTINAL: No history of hematochezia, melena, hematemesis, diarrhea, or constipation. GENITOURINARY: He denies dysuria, frequency, urgency, or hematuria. NEUROLOGIC: No history of stroke, syncope, or Parkinson disease. He has advanced diabetic neuropathy with tingling and numbness. PHYSICAL EXAMINATION: GENERAL: This is an elderly pleasant male. He is overweight. VITAL SIGNS: Blood pressure 123/82, pulse 82 and regular, respirations 20, and temperature 99.3 degrees. HEENT: Head is normocephalic and atraumatic. Pupils are equal, round, and reactive to light and accommodation consensually. He has diminished vision. NECK: Supple. Trachea midline. There was no lymphadenopathy or thyromegaly. LUNGS: Clear to auscultation and percussion. HEART: Regular rate and rhythm without rubs, murmurs, or gallops. ABDOMEN: Soft. Bowel sounds were active. EXTREMITIES: No clubbing, cyanosis, or edema. NEUROLOGICAL: He is alert and oriented x4. Cranial nerves II through XII intact. LABORATORY AND ANCILLARY DATA: CBC within normal limits. Serum chemistry, sodium 136, potassium 4.7, CO2 level 19, BUN 55, creatinine 5.3, and EGFR 13.2. ASSESSMENT: Most likely end-stage renal failure due to diabetic nephropathy. PLAN: 1. 24-hour urine for creatinine clearance and protein. 2. Renal ultrasound. I will discuss the treatment options with the patient. Kelley Bran M.D. DR: Hazel JOB#: [id number] CC:
[2018-02-08] MEDS: Atorvastatin 80mg tab ORAL SCH (20:25)
[2018-02-09] VITALS: BP 143/71
[2018-02-09 04:00] VITALS: BP 148/77
[2018-02-09] MEDS: NovoLOG Insulin Flexpen SUBQ SCH ×4 (06:53→21:00)
[2018-02-09 08:00] VITALS: BP 135/82
--- NOTE | 2018-02-09 08:00 | General Progress Note ---
Assessment/Plan Problem List: (1) Diabetes ICD Codes: E11.9 - Type 2 diabetes mellitus without complications SNOMED: 93843558 (2) Chronic renal disease ICD Codes: N18.9 - Chronic kidney disease, unspecified SNOMED: [id number] Status: stable Assessment/Plan ivf follow up labs renal; derrick 24 hr urine collection Subjective ROS Limited/Unobtainable: No Constitutional: Reports: malaise, weakness HEENT: Reports: no symptoms Cardiovascular: Reports: no symptoms Respiratory: Reports: no symptoms Gastrointestinal/Abdominal: Reports: no symptoms Genitourinary: Reports: no symptoms Neurologic/Psychiatric: Reports: no symptoms Endocrine: Reports: no symptoms Hematologic/Lymphatic: Reports: no symptoms Allergies: Coded Allergies: No Known Allergies (Verified Allergy, Mild, 09/15/09) All Systems: reviewed and negative except above Subjective insisting on going home. bs better controlled. await am labs and renal derrick results renal eval appreciated Objective Last 24 Hour Vital Signs Date Time Temp Pulse Resp B/P (MAP) Pulse Ox O2 Delivery O2 Flow Rate FiO2 02/09/18 04:00 99.8 80 20 148/77 98 Room Air 99.8 02/09/18 00:00 97.5 78 20 143/71 97 Room Air 97.5 02/08/18 20:25 88 123/72 02/08/18 20:00 98.1 79 21 133/80 97 Room Air 98.1 02/08/18 20:00 79 02/08/18 16:00 99.5 83 18 123/72 97 Room Air 99.5 02/08/18 16:00 88 02/08/18 12:00 88 02/08/18 12:00 98.1 89 18 127/70 96 Room Air 98.1 02/08/18 08:50 97 123/82 02/08/18 08:49 97 123/82 02/08/18 08:00 99.3 97 18 123/82 97 Room Air 99.3 02/08/18 08:00 99 Intake and Output 02/08/18 02/09/18 19:00 07:00 Intake Total 480 ml Output Total 300 ml 600 ml Balance 180 ml -600 ml Intake Oral 480 ml Output Urine Total 300 ml 600 ml Laboratory Tests 02/08/18 08:40: Sodium Level 136, Potassium Level 4.7, Chloride Level 105, Carbon Dioxide Level 19L, Anion Gap 12, Blood Urea Nitrogen 55H, Creatinine 5.3H, Estimat Glomerular Filtration Rate 13.2, Glucose Level 207H, Calcium Level 8.1L, Total Bilirubin 0.3, Aspartate Amino Transf (AST/SGOT) 9L, Alanine Aminotransferase (ALT/SGPT) 14, Alkaline Phosphatase 84, Total Protein 7.0, Albumin 2.8L, Globulin 4.2, Albumin/Globulin Ratio 0.7L Height (Feet): 5 Height (Inches): 9.00 Weight (Pounds): 195 TANIA DOAN February 09, 2018 08:00
--- NOTE | 2018-02-09 08:40 | Nephrology Progress Note ---
Assessment/Plan Plan ESRD - needs to start HD. Pt' will schedule AVF + PermCath as an outpatient. Referred to [facility] [place] Subjective Subjective No new c/o Objective Objective Last 24 Hour Vital Signs Date Time Temp Pulse Resp B/P (MAP) Pulse Ox O2 Delivery O2 Flow Rate FiO2 02/09/18 04:00 99.8 80 20 148/77 98 Room Air 99.8 02/09/18 00:00 97.5 78 20 143/71 97 Room Air 97.5 02/08/18 20:25 88 123/72 02/08/18 20:00 98.1 79 21 133/80 97 Room Air 98.1 02/08/18 20:00 79 02/08/18 16:00 99.5 83 18 123/72 97 Room Air 99.5 02/08/18 16:00 88 02/08/18 12:00 88 02/08/18 12:00 98.1 89 18 127/70 96 Room Air 98.1 02/08/18 08:50 97 123/82 02/08/18 08:49 97 123/82 Intake and Output 02/08/18 02/09/18 19:00 07:00 Intake Total 480 ml Output Total 300 ml 600 ml Balance 180 ml -600 ml Intake Oral 480 ml Output Urine Total 300 ml 600 ml Laboratory Tests 02/08/18 08:40: Sodium Level 136, Potassium Level 4.7, Chloride Level 105, Carbon Dioxide Level 19L, Anion Gap 12, Blood Urea Nitrogen 55H, Creatinine 5.3H, Estimat Glomerular Filtration Rate 13.2, Glucose Level 207H, Calcium Level 8.1L, Total Bilirubin 0.3, Aspartate Amino Transf (AST/SGOT) 9L, Alanine Aminotransferase (ALT/SGPT) 14, Alkaline Phosphatase 84, Total Protein 7.0, Albumin 2.8L, Globulin 4.2, Albumin/Globulin Ratio 0.7L Height (Feet): 5 Height (Inches): 9.00 Weight (Pounds): 195 Objective CV RR Lungs CTA Abd SNT BS= E No CCE Eyes poor vision Kelley Bran MD February 09, 2018 08:40
[2018-02-09] MEDS: Levemir Flexpen SUBQ SCH ×2 (08:57→21:31)
[2018-02-09] MEDS: Heparin 5000 units/ml inj SUBQ SCH ×2 (08:58→21:32)
[2018-02-09] MEDS: Aspirin Baby 81mg ORAL SCH (08:59)
[2018-02-09] MEDS: Renagel 400mg cap ORAL SCH ×3 (08:59→18:13)
[2018-02-09 09:57] LABS: BASOPHILS % (AUTO) 1.1 % (0.0-2.0); EOSINOPHILS % (AUTO) 4.9 % (0.0-3.0); LYMPHOCYTES % (AUTO) 30.8 % (20.0-45.0); MEAN CORPUSCULAR VOLUME 86 FL (80-99); MONOCYTES % (AUTO) 7.5 % (1.0-10.0); NEUTROPHILS % (AUTO) 55.7 % (45.0-75.0); PLATELET COUNT 187 K/UL (150-450); RED BLOOD COUNT 3.74 M/UL (4.70-6.10); RED CELL DISTRIBUTION WIDTH 11.9 % (11.6-14.8); WHITE BLOOD COUNT 7.2 K/UL (4.8-10.8)
[2018-02-09 10:28] LABS: ALANINE AMINOTRANSFERASE 16 U/L (12-78); ALBUMIN 2.9 G/DL (3.4-5.0); ALBUMIN/GLOBULIN RATIO 0.7 (1.0-2.7); ALKALINE PHOSPHATASE 82 U/L (46-116); ANION GAP 14 mmol/L (5-15); ASPARTATE AMINO TRANSFERASE 16 U/L (15-37); BILIRUBIN,TOTAL 0.4 MG/DL (0.2-1.0); BLOOD UREA NITROGEN 50 mg/dL (7-18); CALCIUM 8.1 MG/DL (8.5-10.1); CARBON DIOXIDE 17 MMOL/L (21-32); CHLORIDE 106 MMOL/L (98-107); CREATININE 5.3 MG/DL (0.55-1.30); POTASSIUM 4.9 MMOL/L (3.5-5.1); SODIUM 137 MMOL/L (136-145)
[2018-02-09 12:00] VITALS: BP 118/71
[2018-02-09 14:56] LABS: CREATININE 5.3 MG/DL (0.55-1.30)
[2018-02-09 16:00] VITALS: BP 130/80
[2018-02-09 20:00] VITALS: BP 132/75
[2018-02-09] MEDS: Atorvastatin 80mg tab ORAL SCH (21:22)
[2018-02-10] VITALS: BP 112/73
[2018-02-10 04:00] VITALS: BP 127/75
[2018-02-10] MEDS: NovoLOG Insulin Flexpen SUBQ SCH (05:35)
[2018-02-10 08:00] VITALS: BP 155/93
--- NOTE | 2018-02-10 08:05 | General Progress Note ---
Assessment/Plan Problem List: (1) Diabetes ICD Codes: E11.9 - Type 2 diabetes mellitus without complications SNOMED: [id number] (2) Chronic renal disease ICD Codes: N18.9 - Chronic kidney disease, unspecified SNOMED: 328634138 Status: stable, not improved Assessment/Plan ivf follow up labs renal derrick dc planning if derrick shows no obstruction Subjective ROS Limited/Unobtainable: No Constitutional: Reports: malaise, weakness HEENT: Reports: no symptoms Cardiovascular: Reports: no symptoms Respiratory: Reports: no symptoms Gastrointestinal/Abdominal: Reports: no symptoms Genitourinary: Reports: no symptoms Neurologic/Psychiatric: Reports: no symptoms Endocrine: Reports: no symptoms Hematologic/Lymphatic: Reports: no symptoms Allergies: Coded Allergies: No Known Allergies (Verified Allergy, Mild, 09/15/09) All Systems: reviewed and negative except above Subjective no events. w/o complaints. wants to go home. per renal needs to be started on HD soon but that it can arranged as outpt. renal derrick still not done yet. Objective Last 24 Hour Vital Signs Date Time Temp Pulse Resp B/P (MAP) Pulse Ox O2 Delivery O2 Flow Rate FiO2 02/10/18 04:00 97.9 78 20 127/75 97 Room Air 97.9 02/10/18 00:00 97.5 76 20 112/73 97 Room Air 97.5 02/10/18 00:00 72 02/09/18 21:25 80 130/80 02/09/18 20:00 97.8 74 20 132/75 97 Room Air 97.8 02/09/18 16:00 80 02/09/18 16:00 98.0 76 18 130/80 97 Room Air 98.0 02/09/18 12:00 72 02/09/18 12:00 97.5 72 20 118/71 97 Room Air 97.5 02/09/18 08:59 77 135/82 02/09/18 08:59 77 135/82 Intake and Output 02/09/18 02/10/18 19:00 07:00 Intake Total 1183.75 ml 375 ml Output Total 600 ml Balance 583.75 ml 375 ml Intake Oral 880 ml IV Total 303.75 ml 375 ml Output Urine Total 600 ml # Voids 2 3 # Bowel Movements 1 Laboratory Tests 5/7/18 09:05: White Blood Count 7.2, Red Blood Count 3.74L, Hemoglobin 11.0L, Hematocrit 32.0L , Mean Corpuscular Volume 86, Mean Corpuscular Hemoglobin 29.5, Mean Corpuscular Hemoglobin Concent 34.5, Red Cell Distribution Width 11.9, Platelet Count 187, Mean Platelet Volume 8.5, Neutrophils (%) (Auto) 55.7, Lymphocytes (% ) (Auto) 30.8, Monocytes (%) (Auto) 7.5, Eosinophils (%) (Auto) 4.9H, Basophils (%) (Auto) 1.1, Sodium Level 137, Potassium Level 4.9, Chloride Level 106, Carbon Dioxide Level 17L, Anion Gap 14, Blood Urea Nitrogen 50H, Creatinine 5.3H , Estimat Glomerular Filtration Rate 13.2, Glucose Level 180H, Calcium Level 8.1L, Calcium (Send out) [Pending], Phosphorus Level 4.5, Total Bilirubin 0.4, Aspartate Amino Transf (AST/SGOT) 16, Alanine Aminotransferase (ALT/SGPT) 16, Alkaline Phosphatase 82, Total Protein 7.2, Albumin 2.9L, Globulin 4.3, Albumin/ Globulin Ratio 0.7L, Parathyroid Hormone (Intact) [Pending], Hepatitis A IgM Antibody [Pending], Hepatitis B Surface Antigen [Pending], Hepatitis B Core IgM Antibody [Pending], Hepatitis C Antibody [Pending] Height (Feet): 5 Height (Inches): 9.00 Weight (Pounds): 195 General Appearance: WD/WN, alert Neck: supple Cardiovascular: normal rate, regular rhythm Respiratory/Chest: chest wall non-tender, lungs clear, normal breath sounds Abdomen: normal bowel sounds, non tender, soft, no organomegaly Edema: no edema noted Arm (L), no edema noted Arm (R), no edema noted Leg (L), no edema noted Leg (R), no edema noted Pedal (L), no edema noted Pedal (R), no edema noted Generalized TANIA DOAN February 10, 2018 08:05
--- NOTE | 2018-02-10 08:42 | Nephrology Progress Note ---
Assessment/Plan Plan ESRD - needs to start HD. Pt' will schedule AVF + PermCath as an outpatient. Referred to [facility] [place] Subjective Subjective No new c/o Objective Objective Last 24 Hour Vital Signs Date Time Temp Pulse Resp B/P (MAP) Pulse Ox O2 Delivery O2 Flow Rate FiO2 02/10/18 04:00 76 02/10/18 04:00 97.9 78 20 127/75 97 Room Air 97.9 02/10/18 00:00 97.5 76 20 112/73 97 Room Air 97.5 02/10/18 00:00 72 02/09/18 21:25 80 130/80 02/09/18 20:00 97.8 74 20 132/75 97 Room Air 97.8 02/09/18 16:00 80 02/09/18 16:00 98.0 76 18 130/80 97 Room Air 98.0 02/09/18 12:00 72 02/09/18 12:00 97.5 72 20 118/71 97 Room Air 97.5 02/09/18 08:59 77 135/82 02/09/18 08:59 77 135/82 Intake and Output 02/09/18 02/10/18 19:00 07:00 Intake Total 1183.75 ml 375 ml Output Total 600 ml Balance 583.75 ml 375 ml Intake Oral 880 ml IV Total 303.75 ml 375 ml Output Urine Total 600 ml # Voids 2 3 # Bowel Movements 1 Laboratory Tests 02/09/18 09:05: White Blood Count 7.2, Red Blood Count 3.74L, Hemoglobin 11.0L, Hematocrit 32.0L , Mean Corpuscular Volume 86, Mean Corpuscular Hemoglobin 29.5, Mean Corpuscular Hemoglobin Concent 34.5, Red Cell Distribution Width 11.9, Platelet Count 187, Mean Platelet Volume 8.5, Neutrophils (%) (Auto) 55.7, Lymphocytes (% ) (Auto) 30.8, Monocytes (%) (Auto) 7.5, Eosinophils (%) (Auto) 4.9H, Basophils (%) (Auto) 1.1, Sodium Level 137, Potassium Level 4.9, Chloride Level 106, Carbon Dioxide Level 17L, Anion Gap 14, Blood Urea Nitrogen 50H, Creatinine 5.3H , Estimat Glomerular Filtration Rate 13.2, Glucose Level 180H, Calcium Level 8.1L, Calcium (Send out) [Pending], Phosphorus Level 4.5, Total Bilirubin 0.4, Aspartate Amino Transf (AST/SGOT) 16, Alanine Aminotransferase (ALT/SGPT) 16, Alkaline Phosphatase 82, Total Protein 7.2, Albumin 2.9L, Globulin 4.3, Albumin/ Globulin Ratio 0.7L, Parathyroid Hormone (Intact) [Pending], Hepatitis A IgM Antibody [Pending], Hepatitis B Surface Antigen [Pending], Hepatitis B Core IgM Antibody [Pending], Hepatitis C Antibody [Pending] Height (Feet): 5 Height (Inches): 9.00 Weight (Pounds): 195 Objective CV RR Lungs CTA Abd SNT BS= E No CCE Eyes poor vision Kelley Bran MD February 10, 2018 08:41
[2018-02-10 08:55] VITALS: BP 155/93
[2018-02-10] MEDS: Aspirin Baby 81mg ORAL SCH (08:55)
[2018-02-10] MEDS: Renagel 400mg cap ORAL SCH (08:55)
[2018-02-10] MEDS: Heparin 5000 units/ml inj SUBQ SCH (08:56)
[2018-02-10] MEDS: Levemir Flexpen SUBQ SCH (09:00)
[2018-02-10] MEDS ORDERED: RENAGEL400 MG ORAL (09:52)
[2018-02-10] MEDS ORDERED: LEVEMIR FL100 UNIT/1 SUBQ ×2 (09:54)
[2018-02-10] MEDS ORDERED: NORVASC10 MG ORAL (09:55)
[2018-02-10] MEDS ORDERED: JANUVIA50 MG ORAL (09:57)
--- NOTE | 2018-02-12 11:58 | Diagnostic Imaging Report ---
EXAM: US Retroperitoneal Complete, Renal CLINICAL HISTORY: RENAL-A. Increased RFTs., Diabetes, hypertension TECHNIQUE: Real-time ultrasound of the retroperitoneum (complete) with image documentation. COMPARISON: No relevant prior studies available. FINDINGS: Right kidney: A few small cystic foci in the right kidney, largest 10. 7 mm. Right kidney measures 11.4 x 6.1 x 6.1 cm. No stones. Left kidney: Small echogenic focus of the left kidney. Maybe a nonobstructive stone. Left kidney measures 10.0 x 5.0 x 5.3 cm. No hydronephrosis. Bladder: Bilateral ureteral jets are seen. Prevoid urinary bladder volume 184 cc. IMPRESSION: 1. No hydronephrosis. Normal renal echogenicity. 2. A few small cystic foci in the right kidney, largest 10.7 mm. 3. Small echogenic focus of the left kidney. Maybe a nonobstructive stone.
--- NOTE | 2018-02-12 12:59 | Discharge Summary ---
Discharge Summary Hospital Course Date of Admission February 06, 2018 at 11:53 Date of Discharge February 10, 2018 at 10:30 Admitting Diagnosis HPI Eduardo Lobo is a 67 year old male who was admitted on February 06, 2018 at 11:53 for Out Of Control Diabetes Hospital Course [id number] Discharge Discharge Disposition Patient was discharged to Home (01) Pat Brown NP February 12, 2018 12:59
--- NOTE | 2018-02-12 19:33 | Cardiology Report ---
APPROVED REPORT EXAM: Two-dimensional and M-mode echocardiogram with Doppler and color Doppler. INDICATION PRE-OP M-Mode DIMENSIONS IVSd1.2 (0.7-1.1cm)Left Atrium (MM)3.8 (1.6-4.0cm) LVDd3.9 (3.5-5.6cm)Aortic Root4.3 (2.0-3.7cm) PWd1.1 (0.7-1.1cm)Aortic Cusp Exc.2.3 (1.5-2.0cm) IVSs2.2 cm LVDs2.1 (2.5-4.0cm) PWs1.3 cm Normal left ventricular chamber size, systolic function and wall motion . Left ventricular ejection fraction estimated to be 65-70 %. Mild left ventricular hypertrophy by 2-D. Small pericardial effusion. Mild Left atrial enlargement. Right cardiac chamber sizes are within normal limits. Focal aortic valve sclerosis with adequate cusp excursion. Mildly Thickened mitral valve leaflets with normal excursion. Mildly Mitral annulus and aortic root calcification. Pulmonic valve not well visualized. Normal tricuspid valve structure. IVC at normal size with physiologic collapse. A color flow and spectral Doppler study was performed and revealed: Mild aortic regurgitation. Mild to Moderate mitral regurgitation. Mitral diastolic velocities suggest reduced left ventricular relaxation c/w mild LV diastolic dysfunction (Grade I ). Trace tricuspid regurgitation. Tricuspid systolic velocities suggests peak right ventricular systolic pressure of 34 mmHg,consistent with Mild pulmonary hypertension. No Pulmonic regurgitation present.
--- NOTE | 2018-02-13 05:30 | Discharge Summary 2 SIG ---
DATE OF ADMISSION: 02/06/2018 DATE OF DISCHARGE: 02/10/2018 EPIC PROFESSIONAL: Kelley Bran M.D. BRIEF HOSPITAL COURSE: The patient is a 67-year-old male with history of hypertension and diabetes and has been noncompliant with diabetic treatment. He was seen by his primary care physician because of his high sugar. He was direct admit for evaluation of diabetes, which was out of control. The patient also has renal failure. Creatinine was elevated to 4.6. BUN was 44. He was given IV hydration. He was followed by a route service representative. The patient has end-stage renal failure due to diabetic nephropathy. A 24-hour creatinine clearance was 8. A 24-hour protein was 116. Renal ultrasound was negative for hydronephrosis with normal renal echogenicity and few small cystic foci in the right kidney; small echogenic focus of the left kidney. He was seen by route service representative. The patient will eventually need to start hemodialysis. AV fistula and PermCath placement can be done as outpatient. He was eventually discharged home. FINAL DIAGNOSES: 1. Diabetes mellitus type 2 with diabetic nephropathy. 2. End-stage renal disease. DISPOSITION: The patient was discharged home. DISCHARGE MEDICATIONS: Refer to medication list. DISCHARGE INSTRUCTIONS: Follow up with Dr. Stanford on 02/11/2018 at . Address and phone number was provided. FOLLOW UP: Follow up with PMD within a week. Aramis Park M.D. I have been assigned to dictate discharge summary on this account and I was not involved in the patient's management. Pat Brown N.P. DR: ALY JOB#: [id number] CC:
[2018-02-13] MEDS ORDERED: LANTUS SOL100 UNIT/1 SUBQ (15:36)
== END 2018-02-10 10:30 | disposition home or self-care (01) | DRG 637 ==
LOC: 4W 11:53 → 2W 23:42 → 2E 02-07 14:39
DX: E11.65 Type 2 diabetes mellitus with hyperglycemia (principal); N18.6 End stage renal disease; E11.319 Type 2 diabetes mellitus with unspecified diabetic retinopathy without macular edema; Z79.4 Long term (current) use of insulin; E11.40 Type 2 diabetes mellitus with diabetic neuropathy, unspecified; I12.9 Hypertensive chronic kidney disease with stage 1 through stage 4 chronic kidney disease, or unspecified chronic kidney disease; E11.22 Type 2 diabetes mellitus with diabetic chronic kidney disease; Z91.19 Patient's noncompliance with other medical treatment and regimen
CPT/HCPCS: 36415; 71045; 76770; 80053; 81050; 82575; 82947; 82962; 83036; 83970; 84100; 84156; 84443; 85025; 86705; 86709; 86803; 87340; 93005; 93306; 93880; 93922; 93925; 93930; 93970; J1815; S5561

== ENCOUNTER 2018-02-16 06:59 | Day surgery (SDC) | payer MEDICARE, BC ==
[2018-02-16] VITALS (8 sets, daily range): BP systolic 135–165; BP diastolic 78–97
[~2018-02-16] VITALS: Ht 175.3 cm; Wt 94.3 kg
[~2018-02-16 06:59] MED LIST changes: +ALLOPURINOL100 M1 ORAL; +ATORVASTATIN CA40 MG ORAL; +JANUVIA50 MG ORAL; +LEVEMIR FL100 UNIT/1 SUBQ; +NORMODYNE100 MG ORAL; +NORVASC10 MG ORAL; +RENAGEL400 MG ORAL; +TRAMADOL HCL50 MG ORAL
[2018-02-16] MEDS ORDERED: Heparin 5000 units/ml inj ONE (08:00)
[2018-02-16] MEDS ORDERED: Thrombin 5000 units TOPIC ONE (08:00)
[2018-02-16] MEDS ORDERED: Bacitracin Oint 15gm Tube TOPIC ONE (08:00)
[2018-02-16] MEDS ORDERED: Heparin 1000 units/ml 1ml Vial ONE (08:00)
[2018-02-16] MEDS ORDERED: Bupivacaine 0.25% Inj 30ml INJ ONE (08:01)
[2018-02-16] MEDS ORDERED: Lidocaine 1% Plain 30 ml INJ ONE (08:01)
[2018-02-16] MEDS ORDERED: Bacitracin 50000 Units Vial ONE (08:01)
[2018-02-16] MEDS ORDERED: Midazolam 2mg/2ml Inj ONE (08:57)
[2018-02-16] MEDS ORDERED: NS 275ml IRRIG ONE (08:58)
[2018-02-16] MEDS ORDERED: NeoSporin Gu Irrig 1ml Amp IRRIG ONE ×2 (08:58→10:50)
[2018-02-16] MEDS ORDERED: fentaNYL 100 mcg/2 mL IV ONE (08:58)
[2018-02-16] MEDS ORDERED: NS Irrig 1000ml IRRIG ONE (08:59)
[2018-02-16] MEDS ORDERED: Sterile Water Irrig 1000ml IRRIG ONE (09:00)
[2018-02-16] MEDS ORDERED: NS Irrig 1000ml ONE (09:00)
[2018-02-16] MEDS ORDERED: ePHEDrine 50mg/ml Inj ONE (09:00)
--- NOTE | 2018-02-16 09:14 | Pre-Procedure Note/Attestation ---
Pre-Procedure Note/Attestation Complete Prior to Procedure Planned Procedure: left Procedure Narrative: Left arm arteriovenous shunt and dialysis catheter placement Indications for Procedure Pre-Operative Diagnosis: ESRD need for permanent access Attestation I attest that I discussed the nature of the procedure; its benefits; risks and complications; and alternatives (and the risks and benefits of such alternatives ), prior to the procedure, with the patient (or the patient's legal telemarketing sales representative). I attest that, if there was a reasonable possibility of needing a blood transfusion, the patient (or the patient's legal telemarketing sales representative) was given the [facility] standardized written summary, pursuant to the Elia Brijesh Blood Safety Act ([place] Health and Safety Code # 1645, as amended). I attest that I re-evaluated the patient just prior to the surgery and that there has been no change in the patient's H&P, except as documented below: Jeromy Stanford MD February 16, 2018 09:14
--- NOTE | 2018-02-16 10:23 | Anethesia Preoperative Eval ---
Anesthesia Pre-op PMH/ROS General Date of Evaluation: February 16, 2018 Time of Evaluation: 08:55 Anesthesiologist: Dwight ASA Score: ASA 3 Mallampati Score Class I : Soft palate, uvula, fauces, pillars visible Class II: Soft palate, uvula, fauces visible Class III: Soft palate, base of uvula visible Class IV: Only hard plate visible Mallampati Classification: Class III Surgeon: Abdoulaye Diagnosis: ESRD Surgical Procedure: A-V fistula left UE Family History: no anesthesia problems Allergies: Coded Allergies: No Known Allergies (Verified , 02/16/18) Medications: see eMAR Past Medical History Cardiovascular: Reports: HTN; Denies: CAD, ME, valve dz, arrhythmia, other Pulmonary: Denies: asthma, COPD, MARISA, other Gastrointestinal/Genitourinary: Reports: ESRD; Denies: GERD, CRI, other Neurologic/Psychiatric: Denies: dementia, CVA, depression/anxiety, TIA, other Endocrine: Reports: DM; Denies: hypothyroidism, steroids, other HEENT: Reports: cataract (L), cataract (R); Denies: glaucoma, CRAIG (L), CRAIG (R), other Hematology/Immune: Denies: anemia, DVT, bleeding disorder, other Musculoskeletal/Integumentary: Reports: OA; Denies: RA, DJD, DDD, edema, other PMH Narrative: HTN, DM, ESRD,OA PSxH Narrative: TKR, eye surgery Anesthesia Pre-op Phys. Exam Physician Exam Last Vital Signs Date Time Temp Pulse Resp B/P (MAP) Pulse Ox O2 Delivery O2 Flow Rate FiO2 02/16/18 07:36 97.4 89 20 165/89 98 Room Air 97.4 Constitutional: NAD Neurologic: CN 2-12 intact Cardiovascular: RRR, no M/R/G Respiratory: CTA Gastrointestinal: S/NT/ND Airway Exam Mallampati Score: Class III MO: full ROM: full Teeth: intact Anesthesia Pre-op A/P Labs Chemistry Test 02/16/18 07:33 Potassium Level 4.5 MMOL/L (3.5-5.1) Studies Pre-op Studies: EKG - NSR, NSSTTW changes Risk Assessment & Plan Assessment: Class 3 patient for A-V fistula Plan: GA, LMA Status Change Before Surgery: Yes Pre-Antibiotics Drug: Ancef Given Within 1 Hr of Incision: Yes Time Given: 09:15 Elia Quintanilla MD February 16, 2018 10:23
--- NOTE | 2018-02-16 10:24 | Immediate Post-Op Evaluation ---
Immediate Post-Op Evalulation Immediate Post-Op Evalulation Procedure: A-V fistula left UE Date of Evaluation: February 16, 2018 Time of Evaluation: 10:55 IV Fluids: 300 Blood Pressure Systolic: 149 Blood Pressure Diastolic: 87 Pulse Rate: 95 Respiratory Rate: 20 O2 Sat by Pulse Oximetry: 98 Temperature (Fahrenheit): 97.4 Pain Score (1-10): 0 Nausea: No Vomiting: No Complications No complication Patient Status: reacts, patent, none Hydration Status: adequate Drug: Ancef Given Within 1 Hr of Incision: Yes Time Given: 09:15 Elia Quintanilla MD February 16, 2018 10:24
[2018-02-16] MEDS ORDERED: Meperidine 50mg/ml Inj(FOR RIGORS ONLY) IVP ONE ×2 (10:30)
[2018-02-16] MEDS ORDERED: DiphenhydrAMINE 50mg/ml Inj IVP PRN (10:30)
[2018-02-16] MEDS ORDERED: Heparin Sod 1000 units/ml 10ml ONE (10:32)
[2018-02-16] MEDS ORDERED: Propofol 200mg/20ml IV ONE (10:39)
--- NOTE | 2018-02-16 10:53 | Operative Note - PDOC ---
Operative Note Operative Note Pre-op Diagnosis: ESRD need for permanent access Procedure: Left arm arteriovenous fistula (brachial artery to cephalic vein) Post-op Diagnosis: same as pre-op Surgeon: Jeromy Stanford MD Anesthesiologist: Elia Quintanilla MD Anesthesia: general Specimen: none Complications: none Condition: stable Estimated Blood Loss: minimal - 5cc Drains: none Implant(s) used?: No Jeromy Stanford MD February 16, 2018 10:53
--- NOTE | 2018-02-16 10:55 | 48 Hour Post Anesthesia Eval ---
Post Anesthesia Evaluation Procedure: A-V fistula left UE Date of Evaluation: February 16, 2018 Time of Evaluation: 11:15 Blood Pressure Systolic: 150 0: 97 Pulse Rate: 93 Respiratory Rate: 17 O2 Sat by Pulse Oximetry: 96 Airway: patent Nausea: No Vomiting: No Pain Intensity: 2 Hydration Status: adequate Cardiopulmonary Status: Stable Mental Status/LOC: patient returned to baseline Follow-up Care/Observations: As per surgery Post-Anesthesia Complications: No anesthetic complication Follow-up care needed: N/A Elia Quintanilla MD February 16, 2018 10:55
--- NOTE | 2018-02-16 22:15 | Consultation ---
DATE OF CONSULTATION: 02/16/2018 VASCULAR SURGERY CONSULTATION CONSULTING PHYSICIAN: Jeromy Stanford M.D. ATTENDING PHYSICIANS: 1. Shayan Larson M.D. 2. Kelley Bran M.D. REASON FOR EVALUATION: Access for hemodialysis. HISTORY OF PRESENT COMPLAINT: This is a 67-year-old male who suffers from hypertension, obesity, renal failure, and diabetes. Vascular surgery is consulted for further evaluation and access for hemodialysis. The patient is right-handed. He has no other complaints. PAST MEDICAL HISTORY: As above. History of renal failure, hypertension, diabetes mellitus, obesity ALLERGIES: No known drug allergies. SOCIAL HISTORY: No history of smoking, drugs, or alcohol abuse. FAMILY HISTORY: Unremarkable. REVIEW OF SYSTEMS: CARDIOVASCULAR: No history of chest pain or palpitations. PULMONARY: No cough. No hemoptysis. GASTROINTESTINAL: No history of abdominal pain, constipation, or diarrhea. GENITOURINARY: No dysuria, frequency, or urgency. NEUROLOGIC: No history of strokes or seizures. PHYSICAL EXAMINATION: VITAL SIGNS: The patient is afebrile. Heart rate is 80, blood pressure 150/70, and respirations 16. HEENT: Palpable radial pulses. No carotid bruits. LUNGS: Clear to auscultation. HEART: Regular rate and rhythm. ABDOMEN: Soft and nontender. EXTREMITIES: He has palpable femoral pulses. Feet are warm with intact pedal Dopplers bilaterally. IMPRESSION: 1. End-stage renal failure, requiring access for hemodialysis. 2. History of hypertension and obesity. 3. Diabetes mellitus. PLAN AND RECOMMENDATIONS: We will proceed with left upper arm AV shunt placement for access for future dialysis and tunneled Perma catheter will be scheduled when the patient needs dialysis therapy. It was discussed at length with the patient. Jeromy Stanford M.D. DR: TRINITY JOB#: [id number] CC: Jeromy Stanford M.D.; Fax#: [phone] KELLEY BRAN M.D. ; FAX#: [phone] SHAYAN LARSON M.D.; FAX#: [phone] SAL
--- NOTE | 2018-02-17 00:15 | Operative Note - Dictated ---
DATE OF OPERATION: 02/16/2018 SURGEON: Davey Stanford M.D. ANESTHESIOLOGIST: Elia Quintanilla M.D. PREOPERATIVE DIAGNOSES: 1. End-stage renal failure requiring access for hemodialysis. 2. History of hypertension. POSTOPERATIVE DIAGNOSES: 1. End-stage renal failure requiring access for hemodialysis. 2. History of hypertension. PROCEDURE: 1. Placement of left antecubital brachial artery to cephalic vein arteriovenous fistula. 2. Exploration and dilatation of left upper arm cephalic vein. ANESTHESIA: Local, general. COMPLICATIONS: None. FINDINGS: Suitable left upper arm cephalic vein measuring about 4 mm in size. The left brachial artery was also soft and suitable measuring about 4-5 mm in size and post AV shunt creation, the patient had strongly palpable thrill and radial pulse. The patient will require 6 to 8 weeks of time for AVF maturation prior to AV shunt access use. INDICATION FOR PROCEDURE: This is a 67-year-old male who presented for the above-mentioned procedure. Risks and benefits were discussed with the patient and consent was obtained. DESCRIPTION OF PROCEDURE: The patient was brought to the operating room. After a dose of antibiotics and sedation by the anesthesiologist, the left arm was prepped and draped in the usual sterile manner. A transverse antecubital incision was made. The cephalic vein was sharply dissected and all the branches were divided between 2-0 and 3-0 silk sutures. The cephalic vein was flushed with heparinized saline solution and dilated using a coronary dilator up to 4 mm without difficulty. The vein was spatulated. The left brachial artery was sharply dissected. Arteriotomy was made less than 0.5 cm. The left brachial was flushed with heparinized saline solution. End-to-side anastomosis was carried out using running 7-0 Prolene suture. Forward and backward flush was given. Anastomosis was completed. Flow was restored with a strongly palpable thrill and radial pulse. Wound was irrigated with antibiotic irrigation and closed using interrupted 3-0 Vicryl suture and the skin was closed using 4-0 Monocryl subcuticular skin closure. Sterile dressing was applied. The patient tolerated the procedure very well. He was transferred to recovery hemodynamically stable and extubated. Davey Stanford M.D. DR: [place] JOB#: [id number] CC: Lazaro Franks M.D.; Fax#: [phone] FLAVIO MOMIN M.D. ; FAX#: [phone] DAVEY STANFORD M.D.; FAX#: [phone]
== END 2018-02-16 13:05 | disposition home or self-care (01) ==
LOC: SUR 06:59
DX: I12.0 Hypertensive chronic kidney disease with stage 5 chronic kidney disease or end stage renal disease (principal); N18.6 End stage renal disease; E11.22 Type 2 diabetes mellitus with diabetic chronic kidney disease; M19.90 Unspecified osteoarthritis, unspecified site; I77.0 Arteriovenous fistula, acquired
CPT/HCPCS: 36415; 36818; 82962; 84132; J0360; J0690; J1644; J2250; J2405; J2704; J3010; J3490; J7050

== ENCOUNTER 2020-09-14 15:37 | Inpatient (IN) | payer MEDICARE, BC ==
[~2020-09-14] VITALS: Ht 175.3 cm; Wt 86.2 kg
[2020-09-14 15:48] VITALS: BP 147/83
--- NOTE | 2020-09-14 16:11 | Emergency Room Report ---
History of Present Illness General Chief Complaint: Skin Rash/Abscess Source: Patient Present Illness HPI Patient presents from his private doctor's office with a question of infection in his right knee. He says that the swelling is gone down recently but there is some drainage from the lesion underneath the knee. He denies fevers or chills. He is diabetic and has no pain. As far he knows he is not taking antibiotics at this time. Patient has end-stage renal disease. His last dialysis was this morning. The patient denies exposure to Covid positive contacts. No sore throat, chest pain, palpitations, nausea, vomiting, diarrhea, dysuria, abdominal pain, shortness of breath, depression, anxiety, visual changes, dizziness, headache. Allergies: Coded Allergies: No Known Allergies (Verified , 02/16/18) COVID-19 Screening Contact w/high risk pt: No Experienced COVID-19 symptoms?: No COVID-19 Testing performed SURGERY CONSULTANT: No Patient History Past Medical History: see triage record Social History: Denies: smoking - As a child Social History Narrative Lives by himself Reviewed Nursing Documentation: PMH: Agreed; PSxH: Agreed Nursing Documentation-PMH Past Medical History: No History, Except For Hx Cardiac Problems: Yes Hx Hypertension: Yes Hx Diabetes: Yes Hx Cancer: No Hx Gastrointestinal Problems: No Hx Neurological Problems: No Review of Systems All Other Systems: negative except mentioned in HPI Physical Exam Vital Signs Date Time Temp Pulse Resp B/P (MAP) Pulse Ox O2 Delivery O2 Flow Rate FiO2 09/14/20 15:45 97.9 92 18 147/83 (104) 98 Room Air Sp02 EP Interpretation: reviewed, normal General Appearance: well appearing, no apparent distress, GCS 15 Head: normocephalic Eyes: right eye other - Silastic; bilateral eye EOMI - Disconjugate gaze possibly secondary to eye surgery ENT: moist mucus membranes Neck: supple Respiratory: lungs clear, normal breath sounds Cardiovascular #1: regular rate, rhythm Cardiovascular #2: 2+ radial (L) - Dialysis fistula with thrill Gastrointestinal: normal inspection, normal bowel sounds, non tender, no mass, non-distended Musculoskeletal: back normal, decreased range of motion - Right knee however no pain, gait/station normal - Limp, swelling - Right knee Neurologic: alert, oriented x3 Skin: warm/dry, other - Lesion underneath the knee with some drainage. No erythema Medical Decision Making Diagnostic Impression: Primary Impression: Infection of right knee Additional Impression: ESRD (end stage renal disease) on dialysis ER Course Patient presents with drainage and swelling of his knee. Differential includes cellulitis, osteomyelitis, septic joint post joint replacement amongst others. Patient evaluated with labs and x-ray. Patient without pain at this time. He states that the knee is improving however concern over possible infection leads to further evaluation. White count normal. Elevated ESR. CMP with chronic renal failure. Knee x-ray with bony changes in the patella and degenerative disease with prosthesis. CT ordered. CT scan with soft tissue swelling and possible focus of gas. Concen over septic knee. Zosyn and vancomycin ordered. Also admit for further evaluation and treatment. 1740 Laboratory Tests Test 09/14/20 16:22 White Blood Count 3.9 K/UL (4.8-10.8) L Red Blood Count 4.12 M/UL (4.70-6.10) L Hemoglobin 12.3 G/DL (14.2-18.0) L Hematocrit 37.8 % (42.0-52.0) L Mean Corpuscular Volume 92 FL (80-99) Mean Corpuscular Hemoglobin 29.8 PG (27.0-31.0) Mean Corpuscular Hemoglobin Concent 32.4 G/DL (32.0-36.0) Red Cell Distribution Width 17.6 % (11.6-14.8) H Platelet Count 134 K/UL (150-450) L Mean Platelet Volume 8.0 FL (6.5-10.1) Neutrophils (%) (Auto) 58.4 % (45.0-75.0) Lymphocytes (%) (Auto) 26.1 % (20.0-45.0) Monocytes (%) (Auto) 13.1 % (1.0-10.0) H Eosinophils (%) (Auto) 1.6 % (0.0-3.0) Basophils (%) (Auto) 0.8 % (0.0-2.0) Erythrocyte Sedimentation Rate 80 MM/HR (0-20) H Prothrombin Time 12.9 SEC (9.30-11.50) H Prothrombin Time INR 1.2 (0.9-1.1) H Activated Partial Thromboplast Time 31 SEC (23-33) Sodium Level 136 MMOL/L (136-145) Potassium Level 3.3 MMOL/L (3.5-5.1) L Chloride Level 102 MMOL/L (98-107) Carbon Dioxide Level 26 MMOL/L (21-32) Anion Gap 8 mmol/L (5-15) Blood Urea Nitrogen 8 mg/dL (7-18) Creatinine 3.3 MG/DL (0.55-1.30) H Estimated Glomerular Filtration Rate 22.7 mL/min (>60) Glucose Level 138 MG/DL (74-106) H Calcium Level 8.5 MG/DL (8.5-10.1) Total Bilirubin 1.0 MG/DL (0.2-1.0) Aspartate Amino Transferase (AST) 11 U/L (15-37) L Alanine Aminotransferase (ALT) 13 U/L (12-78) Alkaline Phosphatase 71 U/L (46-116) C-Reactive Protein, Quantitative 5.1 mg/dL (0.00-0.90) H Total Protein 9.6 G/DL (6.4-8.2) H Albumin 3.0 G/DL (3.4-5.0) L Globulin 6.6 g/dL Albumin/Globulin Ratio 0.5 (1.0-2.7) L Other X-Ray Diagnostic Results Other X-Ray Diagnostic Results : X-Ray ordered: R knee # of Views/Limited Vs Complete: 3 View Indication: Swelling EP Interpretation: Yes Interpretation: no dislocation, no fractures, other - prosthesis and effusion and shameka changes Impression: Other CT/MRI/US Diagnostic Results CT/MRI/US Diagnostic Results : Imaging Test Ordered: Right knee Impression Diffuse soft tissue swelling around the knee joint suspicious for cellulitis. Focus of gas projecting over the patellofemoral space on the lateral view may be subcutaneous versus intra-articular; recommend further evaluation with ultrasound to assess for joint effusion or septic joint. Last Vital Signs Date Time Temp Pulse Resp B/P (MAP) Pulse Ox O2 Delivery O2 Flow Rate FiO2 09/14/20 23:58 97.7 95 18 145/85 (105) 98 09/14/20 20:07 Room Air Status: improved Disposition: ADMITTED INPATIENT Condition: Serious Best Scherer MD Sep 14, 2020 16:11
[2020-09-14] MEDS ORDERED: Bacitracin Oint UD TOPIC ONE (16:15)
[2020-09-14 16:52] LABS: CALCIUM 8.5 MG/DL (8.5-10.1); CREATININE 3.3 MG/DL (0.55-1.30); POTASSIUM 3.3 MMOL/L (3.5-5.1)
[2020-09-14 16:54] LABS: INR 1.2 (0.9-1.1)
[2020-09-14 16:56] LABS: ALBUMIN/GLOBULIN RATIO 0.5 (1.0-2.7)
[2020-09-14 17:03] LABS: BASOPHILS % (AUTO) 0.8 % (0.0-2.0); EOSINOPHILS % (AUTO) 1.6 % (0.0-3.0); HEMATOCRIT 37.8 % (42.0-52.0); HEMOGLOBIN 12.3 G/DL (14.2-18.0); LYMPHOCYTES % (AUTO) 26.1 % (20.0-45.0); MEAN CORPUSCULAR VOLUME 92 FL (80-99); MONOCYTES % (AUTO) 13.1 % (1.0-10.0); NEUTROPHILS % (AUTO) 58.4 % (45.0-75.0); PLATELET COUNT 134 K/UL (150-450); RED BLOOD COUNT 4.12 M/UL (4.70-6.10); RED CELL DISTRIBUTION WIDTH 17.6 % (11.6-14.8); WHITE BLOOD COUNT 3.9 K/UL (4.8-10.8)
--- NOTE | 2020-09-14 17:05 | Diagnostic Imaging Report ---
INDICATION: Knee pain TECHNIQUE: Frontal, oblique, and lateral views of the COMPARISON: None FINDINGS: The patient is status post total right knee arthroplasty without evidence of hardware-related complication. No acute fracture. Knee joint is anatomic alignment. There is diffuse soft tissue swelling. There is a focus of gas projecting over the patellofemoral space on the lateral view. There is a small knee joint effusion. IMPRESSION: Diffuse soft tissue swelling around the knee joint suspicious for cellulitis. Focus of gas projecting over the patellofemoral space on the lateral view may be subcutaneous versus intra-articular; recommend further evaluation with ultrasound to assess for joint effusion or septic joint.
[2020-09-14] MEDS ORDERED: Piperacillin/Tazobactam 3.375 GM in NS 110 ML IVPB ONE (17:45)
[2020-09-14] MEDS ORDERED: Vancomycin 1 GM in NS 275 ML IVPB ONE (17:45)
--- NOTE | 2020-09-14 19:33 | Diagnostic Imaging Report ---
EXAM: CT Right Lower Extremity Without Intravenous Contrast, Knee CLINICAL HISTORY: OSTEOMY TECHNIQUE: Axial computed tomography images of the right knee without intravenous contrast. CTDI is 3.70 mGy and DLP is 159.20 mGy-cm. One or more of the following dose reduction techniques were used: automated exposure control, adjustment of the mA and/or kV according to patient size, use of iterative reconstruction technique. COMPARISON: Radiograph 09/14/[address] 07/24/2016 FINDINGS: Bones/joints: Status post constrained long stemmed total knee arthroplasty. Multiple ossific fragments adjacent to the joint most pronounced around the tibial plateaus. Moderate joint effusion versus synovial thickening. No periprosthetic fracture. Cement around the tibial component. Lucency subjacent to the medial aspect of the tibial plate. Soft tissues: Extensive subcutaneous soft tissue edema. Fluid most pronounced anterior to the proximal tibia where there is abnormal soft tissue versus a complex fluid collection measuring 6.2 x 3.7 cm (image [id number]). Skin thickening and nodularity anterior to the tibial tuberosity. IMPRESSION: 1. Status post constrained long stemmed total knee arthroplasty. Lucency subjacent to the medial aspect of the tibial plate which could represent loosening or infection in the appropriate clinical setting. 2. Extensive subcutaneous soft tissue edema. Fluid most pronounced anterior to the proximal tibia where there is abnormal soft tissue versus a complex fluid collection measuring 6.2 x 3.7 cm (image [id number]). The appearance is not consistent with an abscess. It may represent coalescing edema, phlegmon, or potentially hematoma. 3. Moderate joint effusion versus synovial thickening.
[2020-09-14 20:07] VITALS: BP 122/85
[2020-09-14 20:10] VITALS: BP 153/89
[2020-09-14] MEDS ORDERED: COREG3.125 MG ORAL (23:07)
[2020-09-14] MEDS ORDERED: IPRATROPIU0.2 MG/1 M HHN (23:07)
[2020-09-14] MEDS ORDERED: JANUVIA25 MG ORAL (23:07)
[2020-09-14] MEDS ORDERED: FAMOTIDINE20 MG ORAL (23:07)
[2020-09-14] MEDS ORDERED: NEURONTIN300 MG ORAL (23:07)
[2020-09-14] MEDS ORDERED: CALCIUM ACETAT667 M1 PO (23:07)
[2020-09-14] MEDS ORDERED: LANTUS SOL100 UNIT/1 SUBQ ×2 (23:07)
[2020-09-14] MEDS ORDERED: VITAMIN D325 MC1 PO (23:07)
[2020-09-14] MEDS ORDERED: Ipratropium 0.02% Inh Soln 2.5ml UD HHN PRN (23:15)
[2020-09-14 23:58] VITALS: BP 145/85
[2020-09-15 04:00] VITALS: BP 138/80
[2020-09-15] MEDS: NovoLOG Insulin Flexpen SUBQ SCH ×4 (05:52→21:21)
[2020-09-15 06:12] LABS: BASOPHILS % (AUTO) 1.3 % (0.0-2.0); HEMATOCRIT 35.3 % (42.0-52.0); HEMOGLOBIN 11.5 G/DL (14.2-18.0); LYMPHOCYTES % (AUTO) 25.1 % (20.0-45.0); MEAN CORPUSCULAR VOLUME 92 FL (80-99); MONOCYTES % (AUTO) 12.8 % (1.0-10.0); NEUTROPHILS % (AUTO) 58.8 % (45.0-75.0); PLATELET COUNT 124 K/UL (150-450); RED BLOOD COUNT 3.83 M/UL (4.70-6.10); RED CELL DISTRIBUTION WIDTH 17.6 % (11.6-14.8)
[2020-09-15 06:31] LABS: ALANINE AMINOTRANSFERASE < 6 U/L (12-78); ALBUMIN 2.6 G/DL (3.4-5.0); ALBUMIN/GLOBULIN RATIO 0.4 (1.0-2.7); ALKALINE PHOSPHATASE 76 U/L (46-116); ANION GAP 5 mmol/L (5-15); ASPARTATE AMINO TRANSFERASE 11 U/L (15-37); BILIRUBIN,TOTAL 0.7 MG/DL (0.2-1.0); BLOOD UREA NITROGEN 12 mg/dL (7-18); CALCIUM 8.4 MG/DL (8.5-10.1); CARBON DIOXIDE 28 MMOL/L (21-32); CHLORIDE 104 MMOL/L (98-107); CREATININE 3.8 MG/DL (0.55-1.30); POTASSIUM 3.7 MMOL/L (3.5-5.1); SODIUM 136 MMOL/L (136-145)
[2020-09-15 08:00] VITALS: BP 137/79
[2020-09-15] MEDS ORDERED: Piperacillin/Tazobactam 3.375 GM in NS 110 ML IVPB SCH (09:00)
[2020-09-15] MEDS: Vitamin D 1000 units Tab ORAL SCH (10:00)
[2020-09-15] MEDS: sitaGLIPtin 25mg tab ORAL SCH (10:00)
[2020-09-15] MEDS: Aspirin EC 81mg tab ORAL SCH (10:01)
--- NOTE | 2020-09-15 11:30 | History & Physical ---
History and Physical History & Physicial Vital Signs -Extended Height: 69 inches Weight: 195 pounds Temperature: 96.3 degrees F (oral) Pulse rate: 68 /min Pulse rhythm: regular Respirations: 15 /min O2 Sat: 93% Blood Pressure: 135/68 mm Hg Calculations Body Mass Index: 28.90 Body Surface Area (m2): 2.05 History of Present Illness 69 Years Old male patient presents today for follow up. Patient with noted right knee swelling and pain with drainage. no fevers. noted pain with walking. noted yellow drainage. Has not taken any antibiotics patient care discussed in detail. all acute issues reviewed in detail. patient medications reviewed. Patient is overall compliant with therapy. all questions answered in detail and discussed life style changes as appropriate. Patient aware Active Medications (reviewed today): VITAMIN D3 2000 UNIT ORAL CAPSULE (CHOLECALCIFEROL) 1 tab po qd CALCIUM ACETATE 667 MG CAPSULE (CALCIUM ACETATE (PHOS BINDER)) TAKE 1 CAPSULE BY MOUTH EVERY DAY IPRAT-ALBUT 0.5-3(2.5) MG/3 ML (IPRATROPIUM-ALBUTEROL) 2 TIMES A DAY NEEDED FOR SHORTNESS OF BREATH FAMOTIDINE 20 MG ORAL TABLET (FAMOTIDINE) Take one tablet daily LANTUS SOLOSTAR 100 UNIT/ML SUBCUTANEOUS SOLUTION PEN-INJECTOR (INSULIN GLARGINE) 10 units subcutaneously in am 20 u qpm GABAPENTIN 300 MG ORAL CAPSULE (GABAPENTIN) 1 bid CARVEDILOL 3.125 MG TABLET (CARVEDILOL) TAKE 1 TABLET BY MOUTH TWICE A DAY EASY TOUCH PEN NEEDLES 32G X 4 MM (INSULIN PEN NEEDLE) use as directed KamicatIO FLEX SYSTEM w/Device KIT (BLOOD GLUCOSE MONITORING SUPPL) as directed ATORVASTATIN 80 MG TABLET (ATORVASTATIN CALCIUM) TAKE 1 TABLET BY MOUTH EVERY DAY ASPIRIN 81 TABLET DELAYED RELEASE (ASPIRIN TBEC) Take one tablet daily JANUVIA 25 MG TABLET (SITAGLIPTIN PHOSPHATE) TAKE 1 TABLET BY MOUTH EVERY DAY Current Allergies: No known allergies No Known Drug Allergies Past History Past Medical History (reviewed - no changes required): CAD Sleep Apnea hypertension hyperlipidemia type II diabetes arthritis diabetic retinopathy Glaucom diabetic nepropathy PVD Asthma chronic renal failure- on dialysis Hospitalized due to having Hypertension Heart attack 05/2018 Surgical History (reviewed - no changes required): eyes cataract surgery both eyes multiple right eye surgery with 2 lenses placed and 2 glaucoma surgeries cornea replacement knee replacement 01/08/17 AV shunt left UE 2017 Double cardiac bypass surgery 05/2018 HD port in chest 01/2020 Stent placement Family History (reviewed - no changes required): Father is ; Mother is . She of disease at the age of 86. The patient indicates family history of hypertension (father, mother), hyperlipidemia (mother), diabetes (brother), kidney disease (mother), asthma (brother), arthritis (father, mother), eye problems (mother). 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 LUDWIG lives with his client who is autistic. He lives at home in [place]. Additional social history reported by LUDWIG is: Born in [place].. 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 he is single, no children. Risk Factors: Smoked Tobacco Use: Never smoker Smokeless Tobacco Use: Never Passive Smoke Exposure: no HIV High Risk Behavior: no Caffeine Use: 2 drinks per day Seatbelt Use: 100 % Sun Exposure: frequently Dietary Counseling: yes Alcohol Use: no Drug Use: no Review of Systems General: weight stable Eyes: catarct extraction Ear/Nose/Throat: denies ear pain or discharge, tinnitus, decreased hearing, nasal obstruction or discharge, nosebleeds, sore throat, hoarseness, dysphagia Cardiovascular: CAD and CABG history. Gastrointestinal: Denies nausea, vomiting, diarrhea, constipation Genitourinary: ESRD Musculoskeletal: see HPI uses walker Skin: denies rash, itching, dryness, suspicious lesions Neurologic: The patient was assessed for fall risk today. The patient was found to be at risk for falls. Patient was educated on methods for fall prevention, including use of proper footwear, keeping pathways clear, use of assistive devices and rising slowing when transitioning from the sitting position to standing. Psychiatric: denies depression, anxiety, memory loss, mental disturbance, suicidal ideation, hallucinations, paranoia Physical Exam General Appearance: well nourished, well hydrated, no acute distress Respiratory Respiratory Effort: no intercostal retractions or use of accessory muscles Palpation: normal fremitus Auscultation: no rales, rhonchi, or wheezes reduced Cardiovascular Palpation: no thrill or palpable murmurs, no displacement of PMI Auscultation: S1, S2, no rub, or gallop harsh murmur sys Carotid arteries: pulses 2+, symmetric, soft bruit Peripheral Circulation: no cyanosis, clubbing, or varicosities +2 edema Musculoskeletal Gait and Station: cane RLE: severe swelling and drainage knee downward edema TIBC: 184 (12/17/2019 10:12:00 AM) Assessment ESRD possible septic knee ho TKR hypertension ho CAD and CABG hypertension Plan Admitted care reviewed venous US negative awaiting aspiration awaiting Ortho and ID resume meds follow up on culture results close follow up impression, plan, and exam edited and reviewed in detail care discussed with Lazaro Marcelo MD Sep 15, 2020 11:30
[2020-09-15 12:00] VITALS: BP 141/87
--- NOTE | 2020-09-15 12:15 | Consultation ---
DATE OF CONSULTATION: 09/15/2020 INFECTIOUS DISEASES CONSULTATION CONSULTING PHYSICIAN: Chuck Salas MD. REFERRING PHYSICIAN: Lazaro Franks MD. REASON FOR CONSULTATION: Right knee infection. HISTORY OF PRESENTING ILLNESS: This is a 69-year-old gentleman with history of diabetes, hypertension, renal failure, on dialysis, coronary artery disease, status post coronary artery bypass graft, with a history of right knee replacement, who comes in with swelling as well as some drainage below the knee. He denies any fever, chills, or pain. An Infectious Diseases consultation has been obtained for possible right knee arthroplasty infection. PAST MEDICAL HISTORY: 1. History of diabetes. 2. Hypertension. 3. Coronary artery disease, status post coronary artery bypass graft. 4. Renal failure, on dialysis. 5. History of right knee arthroplasty. SOCIAL HISTORY: He does not smoke, drink, or use drugs. FAMILY HISTORY: His mother had cancer. REVIEW OF SYSTEMS: RESPIRATORY: No fever, chills, cough, shortness of breath or chest pain. CARDIAC: No chest pain. No palpitation. No dizziness. No syncope. GASTROINTESTINAL: No nausea. No vomiting. No abdominal pain or diarrhea. MUSCULOSKELETAL: He denies any pain. MEDICATIONS: As an inpatient, he is on insulin, atorvastatin, IV vancomycin, vitamin D, Januvia, gabapentin, famotidine, Coreg, calcium acetate, aspirin, Protonix, Zosyn, ipratropium bromide, Tylenol. ALLERGIES: No known drug allergies. PHYSICAL EXAMINATION: VITAL SIGNS: Temperature of 98.9, T-max of 98.9, pulse of 91, respiratory rate of 16, blood pressure 137/79, O2 saturation of 99%. HEENT: Pupils equally reactive to light and accommodation. Mouth appears clean without thrush. NECK: Supple. No adenopathy. No JVD. CARDIOVASCULAR: Regular rate and rhythm. No murmurs. LUNGS: Clear to auscultation bilaterally. No crackles. No wheezes. ABDOMEN: Soft, nontender. No organomegaly. EXTREMITIES: No cyanosis, no clubbing, no edema. Right knee wound with drainage noted. LABORATORY AND DIAGNOSTIC DATA: White count of 4, hemoglobin 11.5, hematocrit 35.3, MCV 92, platelet count of 124, neutrophils of 58%. Sodium 136, potassium 3.7, chloride 104, bicarb 28, BUN 12, creatinine 3.8, glucose 150, calcium of 8.4, total bilirubin 0.7. AST 11, ALT less than 6, alkaline phosphatase 76. C-reactive protein 4.5. Total protein 8.5, albumin of 2.6. CT of the right knee showing status post total knee arthroplasty, lucency subadjacent to the medial aspect of the tibial plate, which could represent loosening or infection. Extensive subcutaneous soft tissue edema, fluid anterior to the proximal tibia versus a complex fluid collection. Moderate joint effusion versus synovial thickening. On 09/14/2020, right knee x-ray showing diffuse soft tissue swelling around the knee joint, suspicious for cellulitis. Focus of gas projecting over the patellofemoral space. ASSESSMENT: This is a 69-year-old gentleman with history of diabetes, hypertension, coronary artery disease, status post coronary artery bypass graft, renal failure, on dialysis, who comes in with right knee swelling and redness and likely to have. 1. Right knee arthroplasty infection. 2. Diabetes. 3. Hypertension. 4. Renal failure, on dialysis. PLAN: 1. Continue IV vancomycin. 2. Discontinue Zosyn. 3. We will start the patient on cefepime. 4. We would suggest Orthopedic surgery evaluation. 5. We will order wound cultures from the right knee. I would like to thank, Dr. Franks for this consultation. Chuck Salas M.D. DR: ALMAZ JOB#: [id number] CC: Lazaro Franks MD.; Fax#: [phone]
[2020-09-15] MEDS: Levemir Flexpen SUBQ SCH ×2 (12:47→21:20)
[2020-09-15] MEDS ORDERED: Lidocaine 1% Plain 30 ml INJ PRN (13:16)
--- NOTE | 2020-09-15 15:53 | Diagnostic Imaging Report ---
ULTRASOUND-GUIDED ASPIRATION Indications: Suspected septic joint, knee joint effusion Comparison: Right knee CT dated 09/14/2020 Technique: Ultrasound used to localize optimal puncture site. Sterile prepping and draping of the right knee was performed. Maximum sterile barrier technique was employed, including sterile ultrasound on probe cover. Local anesthesia with 1% lidocaine. Under real-time ultrasound guidance, multiple passes into the fluid collection were made with both 5 [place] Yueh and 18-gauge access needle. A total of 5 cc of serous fluid was aspirated, followed by 2 cc of serosanguineous fluid after repeated attempts with difficulty aspirating, further percutaneous access was abandoned as the collection was felt to be too complex or organized for needle aspiration. Patient tolerated procedure well, without immediate complication. Post aspiration ultrasound demonstrates no significant hematoma, with no significant change in size of collection.. Findings: Initial ultrasound demonstrates marked subcutaneous edema overlying the anterior tibia and in the infrapatellar soft tissues. No definite large knee joint effusion is identified. Superficial to the proximal anterior tibia, there is an ill-defined heterogeneous predominantly hypoechoic collection corresponding to findings on comparison venous Doppler study. After conversation with the patient, patient reports recent fall with subsequent swelling over the anterior tibia. In combination with a sister, the ultrasound findings may correspond to an avulsion hematoma, which may also be superinfected. Impression: Attempted ultrasound-guided aspiration of the right knee, felt more likely to represent subcutaneous fluid collection as opposed to joint effusion given distance from the knee joint capsule as well as stated history of recent fall with swelling, although connection with the joint capsule cannot be entirely excluded. Difficulty with aspiration and appearance favors evolved hematoma which may be superinfected. Approximately 7 cc aspirated and sent to laboratory for analysis.
[2020-09-15 16:00] VITALS: BP 126/75
--- NOTE | 2020-09-15 16:00 | Diagnostic Imaging Report ---
Indication:Leg pain and swelling Technique: Grayscale and duplex Doppler imaging of the veins in both lower extremities performed in real time utilizing compression and augmentation. Comparison: CT knee dated 09/14/2020; lower extremity venous Doppler study dated 02/09/2018 Findings: Duplex Doppler interrogation of the veins in both lower extremity is performed from the common femoral vein to the popliteal vein. Normal venous compressibility demonstrated throughout. No thrombus identified. Waveform analysis shows good respiratory phasicity and augmentation. There is mild subcutaneous soft tissue edema in both lower extremity is. Inferior to the right knee joint and anterior to the right tibia, there is an ill-defined complex fluid collection measuring 4.4 x 2 x 4.8 cm without significant internal vascularity. Incidental note is made of enlarged bilateral inguinal lymph nodes, presumably reactive. IMPRESSION: 1. No evidence of deep venous thrombosis involving the lower extremities. 2. Subcutaneous fluid collection inferior to the right knee joint and anterior to the right tibia, less likely to be effusion given distance from the joint capsule, and which may represent subcutaneous hematoma or abscess.
[2020-09-15] MEDS: Cefepime HCl 500 MG in D5W 55 ML IV SCH (16:24)
--- NOTE | 2020-09-15 16:33 | Consultation ---
DATE OF CONSULTATION: 09/15/2020 NEPHROLOGY CONSULTATION CONSULTING PHYSICIAN: Kelley Bran MD. ATTENDING PHYSICIAN: Lazaro Franks MD. REASON FOR CONSULTATION: This is a dialysis patient. HISTORY OF PRESENT ILLNESS: This is a 69-year-old male, who is on dialysis every Friday, , and Friday. The patient came today to Dr. Franks's office complaining bitterly about the white secretion coming out of the artificial right knee. This was accompanied with excruciating pain emanating from the right knee and extending to the right lower extremity. The patient underwent a total knee replacement several years ago at [facility]. The patient is admitted for this reason to this hospital. PAST MEDICAL HISTORY: 1. Type 2 diabetes mellitus with multiorgan involvement. 2. End-stage renal failure due to diabetic nephropathy. 3. diabetic retinopathy with blindness. 4. Ischemic heart disease. 5. Status post CABG. 6. Hypertensive cardiovascular disease. 7. Congestive heart failure. 8. Anemia of chronic kidney disease. 9. COPD. MEDICATIONS: Tylenol as needed, baby aspirin, atorvastatin, calcium acetate, Coreg, famotidine, Neurontin, insulin sliding scale, Atrovent, Levemir, lidocaine patch, Protonix, Januvia. ALLERGIES: No known drug allergies. FAMILY HISTORY: Unremarkable. SOCIAL HISTORY: The patient lives at home with the rn geriatric. HABITS: He is nonsmoker and nondrinker. There is no history of illicit drug abuse. REVIEW OF SYSTEMS: HEENT: Hearing is normal. Eyesight, he is almost legally blind. ENDOCRINE: Significant for multiorgan failure from diabetes. RESPIRATORY: He has orthopnea, paroxysmal nocturnal dyspnea, and dyspnea on effort. CARDIAC: He has history of ischemic heart disease. He is status post CABG. He denies chest pain or palpitations. GASTROINTESTINAL: No history of hematochezia, melena, hematemesis, diarrhea, or constipation. GENITOURINARY: He denies dysuria, frequency, urgency, or hematuria. NEUROLOGIC: No history of stroke. PHYSICAL EXAMINATION: GENERAL: This is an elderly, chronically ill-appearing male, who is in no acute distress. VITAL SIGNS: Blood pressure 141/87, pulse 89 and regular, respirations 16, and temperature 97.3. HEENT: The head is normocephalic and atraumatic. His vision is very poor. NECK: Supple. Trachea midline. There was no lymphadenopathy or thyromegaly. LUNGS: Clear to auscultation and percussion. HEART: Regular rate and rhythm without rubs, murmurs, or gallops. ABDOMEN: Soft and nontender. Bowel sounds were active. EXTREMITIES: His right knee shows signs of previous total knee replacement. It is dressed [id number]. It is somewhat tender to touch. He has a left upper arm AV fistula. LABORATORY AND ANCILLARY DATA: CBC - hemoglobin 11.5, otherwise within normal limits. Serum chemistry, electrolytes within normal limits. BUN 12, creatinine 3.8. Glucose 150. Albumin 2.6. CT scan of the knee shows status post constrained long stem total knee arthroplasty, lucency subadjacent to the medial aspect of the tibial plate, which could represent loosening or infection in the appropriate clinical setting. Extensive subcutaneous soft tissue edema, fluid most pronounced anterior to the proximal tibia where there is abnormal soft tissue versus a complex fluid collection measuring 6.2 x 3.7 cm. The appearance is not consistent with an abscess. It may represent coalescing edema, phlegmon, or potentially hematoma. Moderate joint effusion versus synovial thickening. ASSESSMENT: 1. Septic right knee. 2. Type 2 diabetes mellitus with multiorgan involvement. 3. End-stage renal failure due to diabetic nephropathy. 4. Diabetic retinopathy with blindness. 5. Ischemic heart disease. 6. Status post CABG. 7. Hypertensive cardiovascular disease. 8. Congestive heart failure. 9. Anemia of chronic kidney disease. 10. COPD. PLAN: 1. Knee Management per Dr. Franks 2. Hemodialysis will be provided Friday, , and Friday. Kelley Bran M.D. DR: JEFF JOB#: [id number] CC: SAL
[2020-09-15] MEDS ORDERED: Vancomycin 1.25gm Premix q24h IVPB SCH (18:00)
[2020-09-15 20:00] VITALS: BP 136/71
[2020-09-15] MEDS ORDERED: traMADol 50mg tab ORAL PRN (20:45)
[2020-09-15] MEDS: Atorvastatin 80mg tab ORAL SCH (21:18)
[2020-09-15] MEDS: Heparin 5000 units/ml inj SUBQ SCH (21:19)
[2020-09-16 00:29] VITALS: BP 146/85
[2020-09-16 04:30] VITALS: BP 132/85
[2020-09-16 05:40] LABS: BASOPHILS % (AUTO) 0.8 % (0.0-2.0); EOSINOPHILS % (AUTO) 2.8 % (0.0-3.0); HEMATOCRIT 33.3 % (42.0-52.0); LYMPHOCYTES % (AUTO) 26.3 % (20.0-45.0); MEAN CORPUSCULAR VOLUME 90 FL (80-99); MONOCYTES % (AUTO) 12.5 % (1.0-10.0); NEUTROPHILS % (AUTO) 57.5 % (45.0-75.0); PLATELET COUNT 129 K/UL (150-450); RED BLOOD COUNT 3.69 M/UL (4.70-6.10); RED CELL DISTRIBUTION WIDTH 18.6 % (11.6-14.8)
[2020-09-16] MEDS ORDERED: Heparin Sod 1000 units/ml 10ml IV PRN (06:00)
[2020-09-16 06:02] LABS: CREATININE 4.7 MG/DL (0.55-1.30); POTASSIUM 3.7 MMOL/L (3.5-5.1)
[2020-09-16] MEDS: NovoLOG Insulin Flexpen SUBQ SCH ×4 (06:23→21:00)
[2020-09-16 08:00] VITALS: BP 130/85
[2020-09-16] MEDS: sitaGLIPtin 25mg tab ORAL SCH (09:13)
[2020-09-16] MEDS: Aspirin EC 81mg tab ORAL SCH (09:13)
[2020-09-16] MEDS: Vitamin D 1000 units Tab ORAL SCH (09:14)
[2020-09-16] MEDS: Heparin 5000 units/ml inj SUBQ SCH ×2 (09:15→21:00)
[2020-09-16] MEDS: Levemir Flexpen SUBQ SCH ×2 (09:16→21:17)
--- NOTE | 2020-09-16 11:19 | Nephrology Progress Note ---
Assessment/Plan Plan Septic Rt. Knee - IV Abx. Per Dr. Franks. ESRD - HD TTS. Subjective Subjective c/o Rt. Knee pain Objective Objective Last 24 Hour Vital Signs Date Time Temp Pulse Resp B/P (MAP) Pulse Ox O2 Delivery O2 Flow Rate FiO2 09/16/20 09:00 Room Air 09/16/20 08:00 98.0 83 18 130/85 (100) 96 09/16/20 04:30 97.5 86 18 132/85 (101) 95 09/16/20 00:29 97.7 86 18 146/85 (105) 97 09/15/20 21:00 Room Air 09/15/20 20:00 97.3 83 18 136/71 (92) 98 09/15/20 17:06 89 126/75 09/15/20 16:00 97.3 89 18 126/75 (92) 99 09/15/20 12:00 97.3 89 16 141/87 (105) 97 Intake and Output 09/15/20 09/16/20 19:00 07:00 Intake Total 600 ml 450 ml Balance 600 ml 450 ml Intake Oral 600 ml 450 ml # Voids 1 # Bowel Movements 2 1 Laboratory Tests 09/15/20 12:38: POC Whole Blood Glucose 102 09/15/20 16:34: POC Whole Blood Glucose 116H 09/15/20 20:36: POC Whole Blood Glucose 148H 09/16/20 05:05: White Blood Count 4.0L, Red Blood Count 3.69L, Hemoglobin 11.0L, Hematocrit 33.3L, Mean Corpuscular Volume 90, Mean Corpuscular Hemoglobin 29.8, Mean Corpuscular Hemoglobin Concent 32.9, Red Cell Distribution Width 18.6H, Platelet Count 129L, Mean Platelet Volume 8.6, Neutrophils (%) (Auto) 57.5, Lymphocytes (%) (Auto) 26.3, Monocytes (%) (Auto) 12.5H, Eosinophils (%) (Auto) 2.8, Basophils (%) (Auto) 0.8, Sodium Level 137, Potassium Level 3.7, Chloride Level 104, Carbon Dioxide Level 26, Anion Gap 7, Blood Urea Nitrogen 15, Creatinine 4.7H, Estimat Glomerular Filtration Rate 15.0, Glucose Level 135H, Calcium Level 8.0L, Phosphorus Level 3.0 09/16/20 05:10: POC Whole Blood Glucose 100 Height (Feet): 5 Height (Inches): 9.00 Weight (Pounds): 190 Objective Poor vision CV RR lungs CTA Abd SNT. BS + E Rt Knee tender. Dressed. MAXIMINO AVF + Kelley Wilson MD Sep 16, 2020 11:19
[2020-09-16 11:59] VITALS: BP 128/79
--- NOTE | 2020-09-16 13:06 | Infectious Diseases Prog Note ---
Assessment/Plan Assessment/Plan A: 1. Right knee arthroplasty infection. 2. Diabetes. 3. Hypertension. 4. Renal failure, on dialysis. PLAN: 1. Continue IV vancomycin & cefepime. 2. We will order wound cultures Subjective ROS Limited/Unobtainable: No Constitutional: Reports: fatigue Respiratory: Reports: no symptoms Gastrointestinal/Abdominal: Reports: no symptoms Genitourinary: Reports: no symptoms Neurologic: Reports: no symptoms Musculoskeletal: Reports: no symptoms Allergies: Coded Allergies: No Known Allergies (Verified , 02/16/18) Objective Last 24 Hour Vital Signs Date Time Temp Pulse Resp B/P (MAP) Pulse Ox O2 Delivery O2 Flow Rate FiO2 09/16/20 11:59 98.3 85 18 128/79 (95) 98 09/16/20 09:00 Room Air 09/16/20 08:00 98.0 83 18 130/85 (100) 96 09/16/20 04:30 97.5 86 18 132/85 (101) 95 09/16/20 00:29 97.7 86 18 146/85 (105) 97 09/15/20 21:00 Room Air 09/15/20 20:00 97.3 83 18 136/71 (92) 98 09/15/20 17:06 89 126/75 09/15/20 16:00 97.3 89 18 126/75 (92) 99 Height (Feet): 5 Height (Inches): 9.00 Weight (Pounds): 190 HEENT: mucous membranes moist Respiratory/Chest: lungs clear Cardiovascular: normal rate Abdomen: soft, non tender Extremities: other - legs edema, right knee efusion Neurologic/Psychiatric: alert, responsive Microbiology Date/Time Source Procedure Growth Status 09/15/20 14:05 Knee Right Gram Stain - Final Resulted 09/15/20 14:05 Knee Right Wound Culture - Preliminary NO GROWTH Resulted 09/14/20 18:50 Knee Right Gram Stain - Final Resulted 09/14/20 18:50 Knee Right Wound Culture - Preliminary NO GROWTH AFTER 24 HOURS Resulted Laboratory Tests Test 09/15/20 16:34 09/15/20 20:36 09/16/20 05:05 09/16/20 05:10 POC Whole Blood Glucose 116 MG/DL (74-106) H 148 MG/DL (74-106) H 100 MG/DL (74-106) White Blood Count 4.0 K/UL (4.8-10.8) L Red Blood Count 3.69 M/UL (4.70-6.10) L Hemoglobin 11.0 G/DL (14.2-18.0) L Hematocrit 33.3 % (42.0-52.0) L Mean Corpuscular Volume 90 FL (80-99) Mean Corpuscular Hemoglobin 29.8 PG (27.0-31.0) Mean Corpuscular Hemoglobin Concent 32.9 G/DL (32.0-36.0) Red Cell Distribution Width 18.6 % (11.6-14.8) H Platelet Count 129 K/UL (150-450) L Mean Platelet Volume 8.6 FL (6.5-10.1) Neutrophils (%) (Auto) 57.5 % (45.0-75.0) Lymphocytes (%) (Auto) 26.3 % (20.0-45.0) Monocytes (%) (Auto) 12.5 % (1.0-10.0) H Eosinophils (%) (Auto) 2.8 % (0.0-3.0) Basophils (%) (Auto) 0.8 % (0.0-2.0) Sodium Level 137 MMOL/L (136-145) Potassium Level 3.7 MMOL/L (3.5-5.1) Chloride Level 104 MMOL/L (98-107) Carbon Dioxide Level 26 MMOL/L (21-32) Anion Gap 7 mmol/L (5-15) Blood Urea Nitrogen 15 mg/dL (7-18) Creatinine 4.7 MG/DL (0.55-1.30) H Estimat Glomerular Filtration Rate 15.0 mL/min (>60) Glucose Level 135 MG/DL (74-106) H Calcium Level 8.0 MG/DL (8.5-10.1) L Phosphorus Level 3.0 MG/DL (2.5-4.9) Test 09/16/20 11:48 POC Whole Blood Glucose 125 MG/DL (74-106) H Current Medications Medications (Trade) Dose Ordered Sig/Marcelo Route PRN Reason Start Time Stop Time Status Last Admin Dose Admin Acetaminophen (Tylenol) 650 mg Q4H PRN ORAL Mild Pain (Pain Scale 1-3) 09/14/20 22:15 10/14/20 22:14 Aspirin (Ecotrin) 81 mg DAILY ORAL 09/15/20 09:00 10/30/20 08:59 09/16/20 09:13 Atorvastatin Calcium (Lipitor) 80 mg BEDTIME ORAL 09/15/20 21:00 12/14/20 20:59 09/15/20 21:18 Calcium Acetate (Phoslo) 667 mg DAILY ORAL 09/15/20 09:00 12/14/20 08:59 09/16/20 09:13 Carvedilol (Coreg) 3.125 mg BID ORAL 09/15/20 09:00 10/15/20 08:59 09/15/20 17:06 Cefepime HCl 500 mg/Dextrose 55 ml @ 110 mls/hr Q24H IV 09/15/20 14:00 09/22/20 13:59 09/15/20 16:24 Dextrose (Dextrose 50%) 25 ml Q30M PRN IV Hypoglycemia 09/14/20 22:15 12/13/20 22:14 Dextrose (Dextrose 50%) 50 ml Q30M PRN IV Hypoglycemia 09/14/20 22:15 12/13/20 22:14 Famotidine (Pepcid) 20 mg DAILY ORAL 09/15/20 09:00 12/14/20 08:59 09/16/20 09:13 Gabapentin (Neurontin) 300 mg BID ORAL 09/15/20 09:00 10/15/20 08:59 09/16/20 09:13 Heparin Sodium (Porcine) (Heparin 5000 units/ml) 5,000 units EVERY 12 HOURS SUBQ 09/15/20 21:00 10/30/20 20:59 09/16/20 09:15 Heparin Sodium (Porcine) (Heparin Sod 1000 units/ml 10ml) 2,000 unit ONCE PRN IV HD 09/16/20 06:00 09/16/20 23:59 Insulin Aspart (NovoLOG) BEFORE MEALS AND HS SUBQ 09/15/20 06:30 12/14/20 06:29 09/15/20 21:21 Insulin Detemir (Levemir) 10 units 1000 SUBQ 09/15/20 10:00 12/14/20 09:59 09/16/20 09:16 Insulin Detemir (Levemir) 20 units QHS SUBQ 09/15/20 21:00 12/14/20 20:59 09/15/20 21:20 Ipratropium [place] (Atrovent) 500 mcg BID PRN HHN Shortness of Breath 09/14/20 23:15 09/19/20 23:14 Pantoprazole (Protonix) 40 mg DAILY ORAL 09/15/20 09:00 10/15/20 08:59 09/16/20 09:14 Sitagliptin Phosphate (Januvia) 25 mg DAILY ORAL 09/15/20 09:00 10/15/20 08:59 09/16/20 09:13 Sodium Chloride 1,000 ml @ 500 mls/hr Q2H PRN IVLG sbp<90 during hd 09/16/20 06:00 09/16/20 23:59 Tramadol HCl (Ultram) 50 mg Q6H PRN ORAL pain 4-10 09/15/20 20:45 09/22/20 20:44 Vancomycin HCl (Vanco pharmacy to dose) 1 ea DAILY PRN MISC Per rx protocol 09/14/20 22:15 10/14/20 22:14 Vitamin D (Vitamin D) 2,000 intlu DAILY ORAL 09/15/20 09:00 10/15/20 08:59 09/16/20 09:14 Saurav Martinez MD Sep 16, 2020 13:06
[2020-09-16] MEDS: Cefepime HCl 500 MG in D5W 55 ML IV SCH (14:15)
--- NOTE | 2020-09-16 15:10 | Pulmonology Progress Note ---
Subjective ROS Limited/Unobtainable: No Constitutional: Reports: fatigue Gastrointestinal/Abdominal: Reports: no symptoms Musculoskeletal: Reports: no symptoms Allergies: Coded Allergies: No Known Allergies (Verified , 02/16/18) Objective Last 24 Hour Vital Signs Date Time Temp Pulse Resp B/P (MAP) Pulse Ox O2 Delivery O2 Flow Rate FiO2 09/16/20 11:59 98.3 85 18 128/79 (95) 98 09/16/20 09:00 Room Air 09/16/20 08:00 98.0 83 18 130/85 (100) 96 09/16/20 04:30 97.5 86 18 132/85 (101) 95 09/16/20 00:29 97.7 86 18 146/85 (105) 97 09/15/20 21:00 Room Air 09/15/20 20:00 97.3 83 18 136/71 (92) 98 09/15/20 17:06 89 126/75 09/15/20 16:00 97.3 89 18 126/75 (92) 99 Intake and Output 09/15/20 09/16/20 19:00 07:00 Intake Total 600 ml 450 ml Balance 600 ml 450 ml Intake Oral 600 ml 450 ml # Voids 1 # Bowel Movements 2 1 Microbiology Date/Time Source Procedure Growth Status 09/15/20 14:05 Knee Right Gram Stain - Final Resulted 09/15/20 14:05 Knee Right Wound Culture - Preliminary NO GROWTH Resulted 09/14/20 18:50 Knee Right Gram Stain - Final Resulted 09/14/20 18:50 Knee Right Wound Culture - Preliminary NO GROWTH AFTER 24 HOURS Resulted Laboratory Tests 09/15/20 16:34: POC Whole Blood Glucose 116H 09/15/20 20:36: POC Whole Blood Glucose 148H 09/16/20 05:05: White Blood Count 4.0L, Red Blood Count 3.69L, Hemoglobin 11.0L, Hematocrit 33.3L, Mean Corpuscular Volume 90, Mean Corpuscular Hemoglobin 29.8, Mean Corpuscular Hemoglobin Concent 32.9, Red Cell Distribution Width 18.6H, Platelet Count 129L, Mean Platelet Volume 8.6, Neutrophils (%) (Auto) 57.5, Lymphocytes (%) (Auto) 26.3, Monocytes (%) (Auto) 12.5H, Eosinophils (%) (Auto) 2.8, Basophils (%) (Auto) 0.8, Sodium Level 137, Potassium Level 3.7, Chloride Level 104, Carbon Dioxide Level 26, Anion Gap 7, Blood Urea Nitrogen 15, Creatinine 4.7H, Estimat Glomerular Filtration Rate 15.0, Glucose Level 135H, Calcium Level 8.0L, Phosphorus Level 3.0 09/16/20 05:10: POC Whole Blood Glucose 100 09/16/20 11:48: POC Whole Blood Glucose 125H Current Medications Medications (Trade) Dose Ordered Sig/Marcelo Route PRN Reason Start Time Stop Time Status Last Admin Dose Admin Acetaminophen (Tylenol) 650 mg Q4H PRN ORAL Mild Pain (Pain Scale 1-3) 09/14/20 22:15 10/14/20 22:14 Aspirin (Ecotrin) 81 mg DAILY ORAL 09/15/20 09:00 10/30/20 08:59 09/16/20 09:13 Atorvastatin Calcium (Lipitor) 80 mg BEDTIME ORAL 09/15/20 21:00 12/14/20 20:59 09/15/20 21:18 Calcium Acetate (Phoslo) 667 mg DAILY ORAL 09/15/20 09:00 12/14/20 08:59 09/16/20 09:13 Carvedilol (Coreg) 3.125 mg BID ORAL 09/15/20 09:00 10/15/20 08:59 09/15/20 17:06 Cefepime HCl 500 mg/Dextrose 55 ml @ 110 mls/hr Q24H IV 09/15/20 14:00 09/22/20 13:59 09/16/20 14:15 Dextrose (Dextrose 50%) 25 ml Q30M PRN IV Hypoglycemia 09/14/20 22:15 12/13/20 22:14 Dextrose (Dextrose 50%) 50 ml Q30M PRN IV Hypoglycemia 09/14/20 22:15 12/13/20 22:14 Famotidine (Pepcid) 20 mg DAILY ORAL 09/15/20 09:00 12/14/20 08:59 09/16/20 09:13 Gabapentin (Neurontin) 300 mg BID ORAL 09/15/20 09:00 10/15/20 08:59 09/16/20 09:13 Heparin Sodium (Porcine) (Heparin 5000 units/ml) 5,000 units EVERY 12 HOURS SUBQ 09/15/20 21:00 10/30/20 20:59 09/16/20 09:15 Heparin Sodium (Porcine) (Heparin Sod 1000 units/ml 10ml) 2,000 unit ONCE PRN IV HD 09/16/20 06:00 09/16/20 23:59 Insulin Aspart (NovoLOG) BEFORE MEALS AND HS SUBQ 09/15/20 06:30 12/14/20 06:29 09/15/20 21:21 Insulin Detemir (Levemir) 10 units 1000 SUBQ 09/15/20 10:00 12/14/20 09:59 09/16/20 09:16 Insulin Detemir (Levemir) 20 units QHS SUBQ 09/15/20 21:00 12/14/20 20:59 09/15/20 21:20 Ipratropium [place] (Atrovent) 500 mcg BID PRN HHN Shortness of Breath 09/14/20 23:15 09/19/20 23:14 Pantoprazole (Protonix) 40 mg DAILY ORAL 09/15/20 09:00 10/15/20 08:59 09/16/20 09:14 Sitagliptin Phosphate (Januvia) 25 mg DAILY ORAL 09/15/20 09:00 10/15/20 08:59 09/16/20 09:13 Sodium Chloride 1,000 ml @ 500 mls/hr Q2H PRN IVLG sbp<90 during hd 09/16/20 06:00 09/16/20 23:59 Tramadol HCl (Ultram) 50 mg Q6H PRN ORAL pain 4-10 09/15/20 20:45 09/22/20 20:44 Vancomycin [facility] ([facility] to [facility]) 1 ea DAILY PRN MISC Per rx protocol 09/14/20 22:15 10/14/20 22:14 Vitamin D (Vitamin D) 2,000 intlu DAILY ORAL 09/15/20 09:00 10/15/20 08:59 09/16/20 09:14 Assessment/Plan Assessment/Plan Progress Note Patient is a 69 Years Old male patient presents today for follow up. Patient with noted right knee swelling and pain with drainage. no fevers. noted pain with walking, yellow drainage. ID following patient care discussed in detail. all acute issues reviewed in detail. patient medications reviewed. Medications noted: Current Allergies: No known allergies Past Medical History CAD Sleep Apnea hypertension hyperlipidemia type II diabetes arthritis diabetic retinopathy Glaucoma diabetic nepropathy PVD Asthma chronic renal failure- on dialysis Hospitalized due to having Hypertension Heart attack 05/2018 Surgical History: eyes cataract surgery both eyes multiple right eye surgery with 2 lenses placed and 2 glaucoma surgeries cornea replacement knee replacement 01/08/17 AV shunt left UE 2017 Double cardiac bypass surgery 05/2018 HD port in chest 01/2020 Stent placement Physical Exam Vitals signs noted General Appearance: well nourished, well hydrated, no acute distress Respiratory Respiratory Effort: no intercostal retractions or use of accessory muscles Palpation: normal fremitus Auscultation: no rales, rhonchi, or wheezes reduced Cardiovascular Palpation: no thrill or palpable murmurs, no displacement of PMI Auscultation: S1, S2, no rub, or gallop harsh murmur sys Carotid arteries: pulses 2+, symmetric, soft bruit Peripheral Circulation: no cyanosis, clubbing, or varicosities +2 edema Musculoskeletal Gait and Station: cane RLE: severe swelling and drainage knee downward edema Labs: noted Assessment ESRD possible septic knee ho TKR hypertension ho CAD and CABG hypertension Plan ID following care reviewed venous US negative awaiting aspiration awaiting Ortho and ID resume meds follow up on culture results close follow up impression, plan, and exam edited and reviewed in detail care discussed with Best Villafana MD Sep 16, 2020 15:10
[2020-09-16 16:00] VITALS: BP 141/67
[2020-09-16] MEDS ORDERED: Tubing IV Secondary IV ONE (16:13)
[2020-09-16] MEDS ORDERED: NS 275ml ONE (16:13)
[2020-09-16 17:35] LABS: BASOPHILS % (AUTO) 0.5 % (0.0-2.0); EOSINOPHILS % (AUTO) 2.2 % (0.0-3.0); HEMOGLOBIN 10.8 G/DL (14.2-18.0); LYMPHOCYTES % (AUTO) 21.8 % (20.0-45.0); MEAN CORPUSCULAR VOLUME 94 FL (80-99); NEUTROPHILS % (AUTO) 64.4 % (45.0-75.0); PLATELET COUNT 104 K/UL (150-450); RED BLOOD COUNT 3.61 M/UL (4.70-6.10); RED CELL DISTRIBUTION WIDTH 17.9 % (11.6-14.8); WHITE BLOOD COUNT 5.3 K/UL (4.8-10.8)
[2020-09-16 20:00] VITALS: BP 136/84
[2020-09-16] MEDS: Atorvastatin 80mg tab ORAL SCH (21:05)
[2020-09-17] VITALS (12 sets, daily range): BP systolic 118–143; BP diastolic 69–86
[2020-09-17] MEDS: NovoLOG Insulin Flexpen SUBQ SCH ×4 (06:30→21:00)
[2020-09-17] MEDS: sitaGLIPtin 25mg tab ORAL SCH (09:00)
[2020-09-17] MEDS: Levemir Flexpen SUBQ SCH (09:14)
[2020-09-17] MEDS: Heparin 5000 units/ml inj SUBQ SCH ×2 (09:24→21:13)
[2020-09-17] MEDS: Aspirin EC 81mg tab ORAL SCH (09:24)
[2020-09-17] MEDS: Vitamin D 1000 units Tab ORAL SCH (09:24)
--- NOTE | 2020-09-17 11:52 | Nephrology Progress Note ---
Assessment/Plan Plan Septic Rt. Knee - IV Abx. Per Dr. Franks. ESRD - HD TTS. Subjective Subjective c/o Rt. Knee pain Objective Objective Last 24 Hour Vital Signs Date Time Temp Pulse Resp B/P (MAP) Pulse Ox O2 Delivery O2 Flow Rate FiO2 09/17/20 09:24 82 127/78 09/17/20 08:00 97.5 82 18 127/78 (94) 96 09/17/20 07:52 85 18 97 Room Air 21 09/17/20 04:00 97.6 85 18 127/70 (89) 97 09/17/20 00:00 97.4 81 18 135/81 (99) 97 09/16/20 21:00 Room Air 09/16/20 20:00 97.4 86 18 136/84 (101) 96 09/16/20 17:40 81 141/67 09/16/20 16:00 98.2 81 18 141/67 (91) 98 09/16/20 11:59 98.3 85 18 128/79 (95) 98 Intake and Output 09/16/20 09/17/20 19:00 07:00 Intake Total 655 ml 250 ml Output Total 300 ml Balance 355 ml 250 ml Intake Oral 600 ml 250 ml IV Total 55 ml Estimated Blood Loss 300 ml # Bowel Movements 1 Laboratory Tests 09/16/20 16:43: POC Whole Blood Glucose 129H 09/16/20 17:15: White Blood Count 5.3, Red Blood Count 3.61L, Hemoglobin 10.8L, Hematocrit 34.0L , Mean Corpuscular Volume 94, Mean Corpuscular Hemoglobin 29.9, Mean Corpuscular Hemoglobin Concent 31.8L, Red Cell Distribution Width 17.9H, Platelet Count 104L , Mean Platelet Volume 8.6, Neutrophils (%) (Auto) 64.4, Lymphocytes (%) (Auto) 21.8, Monocytes (%) (Auto) 11.0H, Eosinophils (%) (Auto) 2.2, Basophils (%) (Auto) 0.5 09/16/20 21:10: POC Whole Blood Glucose 123H 09/17/20 06:32: POC Whole Blood Glucose 54L 09/17/20 07:05: POC Whole Blood Glucose 68L 09/17/20 09:12: POC Whole Blood Glucose 76 09/17/20 09:20: Random Vancomycin Level 7.0 Height (Feet): 5 Height (Inches): 9.00 Weight (Pounds): 190 Objective Poor vision CV RR lungs CTA Abd SNT. BS + E Rt Knee tender. Dressed. MAXIMINO AVF + Kelley Wilson MD Sep 17, 2020 11:52
[2020-09-17] MEDS ORDERED: Vancomycin 2gm/D5W 550ml IVPB ONE ×2 (12:00)
[2020-09-17] MEDS: Cefepime HCl 500 MG in D5W 55 ML IV SCH (15:15)
--- NOTE | 2020-09-17 16:03 | Pulmonology Progress Note ---
Subjective ROS Limited/Unobtainable: No Constitutional: Reports: fatigue Gastrointestinal/Abdominal: Reports: no symptoms Musculoskeletal: Reports: no symptoms Allergies: Coded Allergies: No Known Allergies (Verified , 02/16/18) Objective Last 24 Hour Vital Signs Date Time Temp Pulse Resp B/P (MAP) Pulse Ox O2 Delivery O2 Flow Rate FiO2 09/17/20 12:00 97.6 78 16 118/74 (89) 99 09/17/20 09:24 82 127/78 09/17/20 08:00 97.5 82 18 127/78 (94) 96 09/17/20 07:52 85 18 97 Room Air 21 09/17/20 04:00 97.6 85 18 127/70 (89) 97 09/17/20 00:00 97.4 81 18 135/81 (99) 97 09/16/20 21:00 Room Air 09/16/20 20:00 97.4 86 18 136/84 (101) 96 09/16/20 17:40 81 141/67 Intake and Output 09/16/20 09/17/20 19:00 07:00 Intake Total 655 ml 250 ml Output Total 300 ml Balance 355 ml 250 ml Intake Oral 600 ml 250 ml IV Total 55 ml Estimated Blood Loss 300 ml # Bowel Movements 1 Microbiology Date/Time Source Procedure Growth Status 09/16/20 05:10 Nasal Nares MRSA Culture - Final NO METHICILLIN RESISTANT STAPH AUREUS... Complete 09/15/20 14:05 Knee Right Gram Stain - Final Resulted 09/15/20 14:05 Knee Right Wound Culture - Preliminary NO GROWTH Resulted 09/14/20 18:50 Knee Right Gram Stain - Final Resulted 09/14/20 18:50 Wound Culture - Preliminary Gram Negative [place] Resulted Laboratory Tests 09/16/20 16:43: POC Whole Blood Glucose 129H 09/16/20 17:15: White Blood Count 5.3, Red Blood Count 3.61L, Hemoglobin 10.8L, Hematocrit 34.0L , Mean Corpuscular Volume 94, Mean Corpuscular Hemoglobin 29.9, Mean Corpuscular Hemoglobin Concent 31.8L, Red Cell Distribution Width 17.9H, Platelet Count 104L , Mean Platelet Volume 8.6, Neutrophils (%) (Auto) 64.4, Lymphocytes (%) (Auto) 21.8, Monocytes (%) (Auto) 11.0H, Eosinophils (%) (Auto) 2.2, Basophils (%) (Auto) 0.5 09/16/20 21:10: POC Whole Blood Glucose 123H 09/17/20 06:32: POC Whole Blood Glucose 54L 09/17/20 07:05: POC Whole Blood Glucose 68L 09/17/20 09:12: POC Whole Blood Glucose 76 09/17/20 09:20: Random Vancomycin Level 7.0 09/17/20 12:02: POC Whole Blood Glucose 73L Current Medications Medications (Trade) Dose Ordered Sig/Marcelo Route PRN Reason Start Time Stop Time Status Last Admin Dose Admin Acetaminophen (Tylenol) 650 mg Q4H PRN ORAL Mild Pain (Pain Scale 1-3) 09/14/20 22:15 10/14/20 22:14 Aspirin (Ecotrin) 81 mg DAILY ORAL 09/15/20 09:00 10/30/20 08:59 09/17/20 09:24 Atorvastatin Calcium (Lipitor) 80 mg BEDTIME ORAL 09/15/20 21:00 12/14/20 20:59 09/16/20 21:05 Calcium Acetate (Phoslo) 667 mg DAILY ORAL 09/15/20 09:00 12/14/20 08:59 09/17/20 09:24 Carvedilol (Coreg) 3.125 mg BID ORAL 09/15/20 09:00 10/15/20 08:59 09/17/20 09:24 Cefepime HCl 500 mg/Dextrose 55 ml @ 110 mls/hr Q24H IV 09/15/20 14:00 09/22/20 13:59 09/17/20 15:15 Dextrose (Dextrose 50%) 25 ml Q30M PRN IV Hypoglycemia 09/14/20 22:15 12/13/20 22:14 Dextrose (Dextrose 50%) 50 ml Q30M PRN IV Hypoglycemia 09/14/20 22:15 12/13/20 22:14 Famotidine (Pepcid) 20 mg DAILY ORAL 09/15/20 09:00 12/14/20 08:59 09/17/20 09:24 Gabapentin (Neurontin) 300 mg BID ORAL 09/15/20 09:00 10/15/20 08:59 09/17/20 09:24 Heparin Sodium (Porcine) (Heparin 5000 units/ml) 5,000 units EVERY 12 HOURS SUBQ 09/15/20 21:00 10/30/20 20:59 09/17/20 09:24 Insulin Aspart (NovoLOG) BEFORE MEALS AND HS SUBQ 09/15/20 06:30 12/14/20 06:29 09/15/20 21:21 Insulin Detemir (Levemir) 10 units 1000 SUBQ 09/15/20 10:00 12/14/20 09:59 09/16/20 09:16 Insulin Detemir (Levemir) 20 units QHS SUBQ 09/15/20 21:00 12/14/20 20:59 09/16/20 21:17 Ipratropium [place] (Atrovent) 500 mcg BID PRN HHN Shortness of Breath 09/14/20 23:15 09/19/20 23:14 Pantoprazole (Protonix) 40 mg DAILY ORAL 09/15/20 09:00 10/15/20 08:59 09/17/20 09:24 Sitagliptin Phosphate (Januvia) 25 mg DAILY ORAL 09/15/20 09:00 10/15/20 08:59 09/16/20 09:13 Tramadol HCl (Ultram) 50 mg Q6H PRN ORAL pain 4-10 09/15/20 20:45 09/22/20 20:44 Vancomycin HCl ([facility] pharmacy to dose) 1 ea DAILY PRN MISC Per rx protocol 09/14/20 22:15 10/14/20 22:14 Vitamin D (Vitamin D) 2,000 intlu DAILY ORAL 09/15/20 09:00 10/15/20 08:59 09/17/20 09:24 Assessment/Plan Assessment/Plan Progress Note Patient is a 69 Years Old male patient presents today for follow up. Patient with noted right knee swelling and pain with drainage. no fevers. noted pain with walking, yellow drainage. On IV AB patient care discussed in detail. all acute issues reviewed in detail. patient medications reviewed. Medications noted: Current Allergies: No known allergies Past Medical History CAD Sleep Apnea hypertension hyperlipidemia type II diabetes arthritis diabetic retinopathy Glaucoma diabetic nepropathy PVD Asthma chronic renal failure- on dialysis Hospitalized due to having Hypertension Heart attack 05/2018 Surgical History: eyes cataract surgery both eyes multiple right eye surgery with 2 lenses placed and 2 glaucoma surgeries cornea replacement knee replacement 01/08/17 AV shunt left UE 2018 Double cardiac bypass surgery 05/2018 HD port in chest 01/2020 Stent placement Physical Exam Vitals signs noted General Appearance: well nourished, well hydrated, no acute distress Respiratory Respiratory Effort: no intercostal retractions or use of accessory muscles Palpation: normal fremitus Auscultation: no rales, rhonchi, or wheezes reduced Cardiovascular Palpation: no thrill or palpable murmurs, no displacement of PMI Auscultation: S1, S2, no rub, or gallop harsh murmur sys Carotid arteries: pulses 2+, symmetric, soft bruit Peripheral Circulation: no cyanosis, clubbing, or varicosities +2 edema Musculoskeletal Gait and Station: cane RLE: severe swelling and drainage knee downward edema Labs: noted Assessment ESRD possible septic knee ho TKR hypertension ho CAD and CABG hypertension Plan ID following care reviewed venous US negative awaiting aspiration awaiting Ortho and ID resume meds follow up on culture results close follow up impression, plan, and exam edited and reviewed in detail care discussed with Best Villafana MD Sep 17, 2020 16:03
[2020-09-17] MEDS ORDERED: Levemir Flexpen SUBQ SCH (21:00)
[2020-09-17] MEDS: Atorvastatin 80mg tab ORAL SCH (21:12)
[2020-09-18] VITALS (12 sets, daily range): BP systolic 118–146; BP diastolic 67–111
[2020-09-18 05:06] LABS: ALBUMIN 2.1 G/DL (3.4-5.0); ALBUMIN/GLOBULIN RATIO 0.4 (1.0-2.7); BILIRUBIN,TOTAL 0.6 MG/DL (0.2-1.0); CALCIUM 7.8 MG/DL (8.5-10.1); CREATININE 5.6 MG/DL (0.55-1.30); POTASSIUM 3.9 MMOL/L (3.5-5.1)
[2020-09-18] MEDS: NovoLOG Insulin Flexpen SUBQ SCH ×4 (05:43→21:00)
[2020-09-18] MEDS: Heparin 5000 units/ml inj SUBQ SCH ×2 (09:00→21:00)
[2020-09-18] MEDS: sitaGLIPtin 25mg tab ORAL SCH (09:03)
[2020-09-18] MEDS: Aspirin EC 81mg tab ORAL SCH (09:04)
--- NOTE | 2020-09-18 09:04 | General Progress Note ---
Subjective Allergies: Coded Allergies: No Known Allergies (Verified , 02/16/18) Subjective care noted cultures growing ID noted events reviewed Objective Last 24 Hour Vital Signs Date Time Temp Pulse Resp B/P (MAP) Pulse Ox O2 Delivery O2 Flow Rate FiO2 09/18/20 07:56 97.7 85 18 131/111 (118) 99 09/18/20 04:42 97.9 96 09/18/20 04:00 97.9 84 18 131/72 (91) 96 09/18/20 01:00 97.8 98 09/18/20 00:00 98.0 96 09/17/20 23:41 97.9 87 16 131/83 (99) 98 09/17/20 23:00 97.9 98 09/17/20 22:00 97.3 98 09/17/20 21:00 98.2 99 09/17/20 21:00 Room Air 09/17/20 20:30 97.4 98 09/17/20 20:00 97.3 81 18 143/81 (101) 97 09/17/20 20:00 97.8 96 09/17/20 19:30 97.3 97 09/17/20 19:25 87 18 96 Room Air 21 09/17/20 18:00 76 127/69 09/17/20 16:00 97.6 76 16 127/69 (88) 96 09/17/20 12:00 97.6 78 16 118/74 (89) 99 09/17/20 09:24 82 127/78 09/17/20 09:00 Room Air Intake and Output 09/17/20 09/18/20 19:02 07:02 Intake Total 1105 ml 1200 ml Balance 1105 ml 1200 ml Intake Oral 500 ml 1200 ml IV Total 605 ml # Voids 1 1 # Bowel Movements 1 Laboratory Tests 09/17/20 09:12: POC Whole Blood Glucose 76 09/17/20 09:20: Random Vancomycin Level 7.0 09/17/20 12:02: POC Whole Blood Glucose 73L 09/17/20 16:36: POC Whole Blood Glucose [Pending] 09/17/20 21:12: POC Whole Blood Glucose [Pending] 09/18/20 04:30: Sodium Level 136, Potassium Level 3.9, Chloride Level 102, Carbon Dioxide Level 28, Anion Gap 6, Blood Urea Nitrogen 22H, Creatinine 5.6H, Estimat Glomerular Filtration Rate 12.2, Glucose Level 55L, Calcium Level 7.8L, Total Bilirubin 0.6, Aspartate Amino Transf (AST/SGOT) 9L, Alanine Aminotransferase (ALT/SGPT) 14, Alkaline Phosphatase 71, Total Protein 6.9, Albumin 2.1L, Globulin 4.8, Albumin/Globulin Ratio 0.4L, Random Vancomycin Level 25.4 09/18/20 05:36: POC Whole Blood Glucose 49L 09/18/20 05:38: POC Whole Blood Glucose [Pending] 09/18/20 06:18: POC Whole Blood Glucose [Pending] 09/18/20 06:40: POC Whole Blood Glucose [Pending] Height (Feet): 5 Height (Inches): 9.00 Weight (Pounds): 190 Objective WDWN NAD clear breath sounds bilaterally without rhonchi or wheeze [id number] without MRG NABS nontender no HSM no CC noted right knee swelling and leg edema nonfocal Assessment/Plan Assessment/Plan: Assessment ESRD possible septic knee- GNR + ho TKR hypertension ho CAD and CABG hypertension Plan care reviewed venous US negative awaiting final aspiration results awaiting Ortho ID noted continue meds and monitor blood sugars follow up on culture results close follow up impression, plan, and exam edited and reviewed in detail care discussed with Lazaro Marcelo MD Sep 18, 2020 09:04
[2020-09-18] MEDS: Levemir Flexpen SUBQ SCH ×2 (09:05→21:00)
[2020-09-18] MEDS: Vitamin D 1000 units Tab ORAL SCH (09:05)
--- NOTE | 2020-09-18 12:07 | Infectious Diseases Prog Note ---
Assessment/Plan Assessment/Plan antibiotics : vancomycin iv, cefepime A 1. Right knee arthroplasty infection with proteus 2. Diabetes. 3. Hypertension. 4. Renal failure, on dialysis. P 1. d/c IV vancomycin cefepime 2. start Zosyn. 3. Orthopedic surgery evaluation pending Subjective ROS Limited/Unobtainable: Yes Allergies: Coded Allergies: No Known Allergies (Verified , 02/16/18) Objective Last 24 Hour Vital Signs Date Time Temp Pulse Resp B/P (MAP) Pulse Ox O2 Delivery O2 Flow Rate FiO2 09/18/20 11:40 97.5 81 18 118/67 (84) 98 09/18/20 09:03 85 131/111 09/18/20 09:00 97.7 99 09/18/20 09:00 Room Air 09/18/20 07:56 97.7 85 18 131/111 (118) 99 09/18/20 07:45 66 18 99 Room Air 21 09/18/20 04:42 97.9 96 09/18/20 04:00 97.9 84 18 131/72 (91) 96 09/18/20 01:00 97.8 98 09/18/20 00:00 98.0 96 09/17/20 23:41 97.9 87 16 131/83 (99) 98 09/17/20 23:00 97.9 98 09/17/20 22:00 97.3 98 09/17/20 21:00 98.2 99 09/17/20 21:00 Room Air 09/17/20 20:30 97.4 98 09/17/20 20:00 97.3 81 18 143/81 (101) 97 09/17/20 20:00 97.8 96 09/17/20 19:30 97.3 97 09/17/20 19:25 87 18 96 Room Air 21 09/17/20 18:00 76 127/69 09/17/20 16:00 97.6 76 16 127/69 (88) 96 Height (Feet): 5 Height (Inches): 9.00 Weight (Pounds): 190 Respiratory/Chest: lungs clear Cardiovascular: normal rate, regular rhythm, no gallop/murmur Abdomen: soft, non tender Extremities: no edema, other - right leg drainage Microbiology Date/Time Source Procedure Growth Status 09/16/20 05:10 Rectum VRE Culture - Final NO VANCOMYCIN RESISTANT ENTEROCOCCUS ... Complete 09/16/20 05:10 Rectum - Final NO CARBAPENEM-RESISTANT ENTEROBACTERI... Complete 09/16/20 05:10 Nasal Nares MRSA Culture - Final NO METHICILLIN RESISTANT STAPH AUREUS... Complete 09/15/20 14:05 Knee Right Gram Stain - Final Resulted 09/15/20 14:05 Wound Culture - Preliminary Gram Negative Bacillus 1 Resulted Laboratory Tests Test 09/17/20 16:36 09/17/20 21:12 09/18/20 04:30 09/18/20 05:36 POC Whole Blood Glucose Pending Pending 49 MG/DL (74-106) L Sodium Level 136 MMOL/L (136-145) Potassium Level 3.9 MMOL/L (3.5-5.1) Chloride Level 102 MMOL/L (98-107) Carbon Dioxide Level 28 MMOL/L (21-32) Anion Gap 6 mmol/L (5-15) Blood Urea Nitrogen 22 mg/dL (7-18) H Creatinine 5.6 MG/DL (0.55-1.30) H Estimat Glomerular Filtration Rate 12.2 mL/min (>60) Glucose Level 55 MG/DL (74-106) L Calcium Level 7.8 MG/DL (8.5-10.1) L Total Bilirubin 0.6 MG/DL (0.2-1.0) Aspartate Amino Transf (AST/SGOT) 9 U/L (15-37) L Alanine Aminotransferase (ALT/SGPT) 14 U/L (12-78) Alkaline Phosphatase 71 U/L (46-116) Total Protein 6.9 G/DL (6.4-8.2) Albumin 2.1 G/DL (3.4-5.0) L Globulin 4.8 g/dL Albumin/Globulin Ratio 0.4 (1.0-2.7) L Random Vancomycin Level 25.4 ug/mL Test 09/18/20 05:38 09/18/20 06:18 09/18/20 06:40 09/18/20 09:28 POC Whole Blood Glucose Pending Pending Pending 93 MG/DL (74-106) Test 09/18/20 11:39 POC Whole Blood Glucose 87 MG/DL (74-106) Current Medications Medications (Trade) Dose Ordered Sig/Marcelo Route PRN Reason Start Time Stop Time Status Last Admin Dose Admin Acetaminophen (Tylenol) 650 mg Q4H PRN ORAL Mild Pain (Pain Scale 1-3) 09/14/20 22:15 10/14/20 22:14 Aspirin (Ecotrin) 81 mg DAILY ORAL 09/15/20 09:00 10/30/20 08:59 09/18/20 09:04 Atorvastatin Calcium (Lipitor) 80 mg BEDTIME ORAL 09/15/20 21:00 12/14/20 20:59 09/17/20 21:12 Calcium Acetate (Phoslo) 667 mg DAILY ORAL 09/15/20 09:00 12/14/20 08:59 09/18/20 09:03 Carvedilol (Coreg) 3.125 mg BID ORAL 09/15/20 09:00 10/15/20 08:59 09/18/20 09:03 Cefepime HCl 500 mg/Dextrose 55 ml @ 110 mls/hr Q24H IV 09/15/20 14:00 09/22/20 13:59 09/17/20 15:15 Dextrose (Dextrose 50%) 25 ml Q30M PRN IV Hypoglycemia 09/14/20 22:15 12/13/20 22:14 Dextrose (Dextrose 50%) 50 ml Q30M PRN IV Hypoglycemia 09/14/20 22:15 12/13/20 22:14 Famotidine (Pepcid) 20 mg DAILY ORAL 09/15/20 09:00 12/14/20 08:59 09/18/20 09:04 Gabapentin (Neurontin) 300 mg BID ORAL 09/15/20 09:00 10/15/20 08:59 09/18/20 09:04 Heparin Sodium (Porcine) (Heparin 5000 units/ml) 5,000 units EVERY 12 HOURS SUBQ 09/15/20 21:00 10/30/20 20:59 09/17/20 21:13 Heparin Sodium (Porcine) (Heparin Sod 1000 units/ml 10ml) 2,000 unit ONCE PRN IV HD 09/19/20 06:00 09/19/20 23:59 Insulin Aspart (NovoLOG) BEFORE MEALS AND HS SUBQ 09/15/20 06:30 12/14/20 06:29 09/15/20 21:21 Insulin Detemir (Levemir) 6 units Q24H SUBQ 09/18/20 10:00 12/17/20 09:59 Insulin Detemir (Levemir) 12 units QHS SUBQ 09/18/20 21:00 12/17/20 20:59 Ipratropium [place] (Atrovent) 500 mcg BID PRN HHN Shortness of Breath 09/14/20 23:15 09/19/20 23:14 Pantoprazole (Protonix) 40 mg DAILY ORAL 09/15/20 09:00 10/15/20 08:59 09/18/20 09:03 Sitagliptin Phosphate (Januvia) 25 mg DAILY ORAL 09/15/20 09:00 10/15/20 08:59 09/18/20 09:03 Sodium Chloride 1,000 ml @ 500 mls/hr Q2H PRN IVLG sbp<90 during hd 09/19/20 06:00 09/19/20 23:59 Tramadol HCl (Ultram) 50 mg Q6H PRN ORAL pain 4-10 09/15/20 20:45 09/22/20 20:44 Vancomycin HCl ([facility] pharmacy to dose) 1 ea DAILY PRN MISC Per rx protocol 09/14/20 22:15 10/14/20 22:14 Vitamin D (Vitamin D) 2,000 intlu DAILY ORAL 09/15/20 09:00 10/15/20 08:59 09/18/20 09:05 Chuck Salas MD Sep 18, 2020 12:07
[2020-09-18] MEDS: Piperacillin/Tazobactam 2.25 GM in D5W 55 ML IV SCH ×2 (14:26→21:06)
[2020-09-18] MEDS ORDERED: Tubing IV Secondary IV ONE (18:38)
[2020-09-18] MEDS: Atorvastatin 80mg tab ORAL SCH (21:00)
--- NOTE | 2020-09-18 21:00 | Consultation ---
DATE OF CONSULTATION: 09/18/2020 ORTHOPEDIC CONSULTATION CONSULTING PHYSICIAN: Chaka Moreno M.D. HISTORY OF PRESENT ILLNESS: The patient is a pleasant 69-year-old gentleman, who presents with complaints of right knee pain. The patient reports that he underwent revision total knee arthroplasty in [facility] approximately 2 to 3 years ago. He was doing relatively well. He was on dialysis when he was falling forward and subsequently called me today. Since then, a couple of days later, he noticed drainage along the right knee. He was admitted for possible infection. Orthopedic consultation obtained for further care and recommendation. PAST MEDICAL HISTORY: Diabetes, hypertension, coronary artery disease, renal failure. PAST SURGICAL HISTORY: Includes revision right total knee arthroplasty. SOCIAL HISTORY: Reviewed per intake chart. FAMILY HISTORY: Reviewed per intake chart. ALLERGIES: Reviewed per intake chart. PHYSICAL EXAMINATION: GENERAL: The patient is resting comfortably in bed. EXTREMITIES: His incision is intact with moderate drainage. Posterior calf is soft. Neurovascular was normal. IMAGING: Imaging study show revision total knee arthroplasty with stent implant of proximal tibial sleeve as well as a constrained implant, aspiration of the right knee, he has possible Gram-negative bacilli. ASSESSMENT: Right knee periprosthetic infection. DISCUSSION: At this point, I went over the recommendations with the patient. Given his history, the periprosthetic infection will require a removal of the implant with placement of antibiotic spacer and then subsequently 6 weeks IV antibiotics. Once he has cleared the infection, he would be candidate for a revision total knee arthroplasty. At this point, given the complexity of his surgery, we are going to try to refer him at [facility] where he had the second revision surgery performed. For some reason if he is not able to be transferred, then we will schedule surgery accordingly. Chaka Moreno M.D. DR: CARYL JOB#: [id number] CC:
[2020-09-19] VITALS (7 sets, daily range): BP systolic 128–155; BP diastolic 66–92
[2020-09-19] MEDS: Piperacillin/Tazobactam 2.25 GM in D5W 55 ML IV SCH (05:47)
[2020-09-19] MEDS ORDERED: Heparin Sod 1000 units/ml 10ml IV PRN (06:00)
[2020-09-19] MEDS: NovoLOG Insulin Flexpen SUBQ SCH ×4 (06:30→20:42)
[2020-09-19 06:31] LABS: BASOPHILS % (AUTO) 1.3 % (0.0-2.0); EOSINOPHILS % (AUTO) 2.9 % (0.0-3.0); HEMATOCRIT 30.1 % (42.0-52.0); HEMOGLOBIN 9.7 G/DL (14.2-18.0); LYMPHOCYTES % (AUTO) 24.5 % (20.0-45.0); MEAN CORPUSCULAR VOLUME 93 FL (80-99); MONOCYTES % (AUTO) 9.2 % (1.0-10.0); NEUTROPHILS % (AUTO) 62.1 % (45.0-75.0); PLATELET COUNT 141 K/UL (150-450); RED BLOOD COUNT 3.25 M/UL (4.70-6.10); WHITE BLOOD COUNT 6.1 K/UL (4.8-10.8)
[2020-09-19 06:46] LABS: ALBUMIN 2.2 G/DL (3.4-5.0); ALBUMIN/GLOBULIN RATIO 0.4 (1.0-2.7); BILIRUBIN,TOTAL 0.6 MG/DL (0.2-1.0); CALCIUM 7.8 MG/DL (8.5-10.1); CREATININE 6.2 MG/DL (0.55-1.30); POTASSIUM 5.3 MMOL/L (3.5-5.1)
[2020-09-19] MEDS: sitaGLIPtin 25mg tab ORAL SCH (09:59)
[2020-09-19] MEDS: Aspirin EC 81mg tab ORAL SCH (10:00)
[2020-09-19] MEDS: Levemir Flexpen SUBQ SCH ×2 (10:00→20:46)
[2020-09-19] MEDS: Vitamin D 1000 units Tab ORAL SCH (10:01)
[2020-09-19] MEDS: Heparin 5000 units/ml inj SUBQ SCH ×2 (10:03→20:42)
--- NOTE | 2020-09-19 10:51 | Infectious Diseases Prog Note ---
Assessment/Plan Assessment/Plan A: 1. Right knee arthroplasty infection. 2. Diabetes. 3. Hypertension. 4. Renal failure, on dialysis. PLAN: 1. Change Zosyn to Rocephin 2. Needs 2 step right knee replacement Subjective ROS Limited/Unobtainable: No Constitutional: Reports: no symptoms Respiratory: Reports: no symptoms Gastrointestinal/Abdominal: Reports: no symptoms Genitourinary: Reports: no symptoms Allergies: Coded Allergies: No Known Allergies (Verified , 02/16/18) Objective Last 24 Hour Vital Signs Date Time Temp Pulse Resp B/P (MAP) Pulse Ox O2 Delivery O2 Flow Rate FiO2 09/19/20 09:00 Room Air 09/19/20 08:00 98.1 85 16 155/92 (113) 98 09/19/20 04:00 98.0 85 16 136/75 (95) 98 09/19/20 01:00 97.3 97 09/19/20 00:00 97.3 83 17 134/77 (96) 97 09/18/20 21:00 97.7 98 09/18/20 21:00 Room Air 09/18/20 20:14 82 18 97 Room Air 21 09/18/20 20:00 97.7 84 18 146/85 (105) 98 09/18/20 17:29 85 125/70 09/18/20 17:00 97.8 95 09/18/20 16:00 97.8 83 18 127/80 (96) 95 09/18/20 13:00 97.5 98 09/18/20 11:40 97.5 81 18 118/67 (84) 98 Height (Feet): 5 Height (Inches): 9.00 Weight (Pounds): 190 HEENT: mucous membranes moist Respiratory/Chest: lungs clear Cardiovascular: normal rate Abdomen: soft, non tender Extremities: other - legs edema, R knee effusion Neurologic/Psychiatric: alert, oriented x 3, responsive Laboratory Tests Test 09/18/20 11:39 09/18/20 16:54 09/18/20 21:04 09/19/20 05:00 POC Whole Blood Glucose 87 MG/DL (74-106) 81 MG/DL (74-106) Pending White Blood Count 6.1 K/UL (4.8-10.8) Red Blood Count 3.25 M/UL (4.70-6.10) L Hemoglobin 9.7 G/DL (14.2-18.0) L Hematocrit 30.1 % (42.0-52.0) L Mean Corpuscular Volume 93 FL (80-99) Mean Corpuscular Hemoglobin 30.0 PG (27.0-31.0) Mean Corpuscular Hemoglobin Concent 32.3 G/DL (32.0-36.0) Red Cell Distribution Width 18.0 % (11.6-14.8) H Platelet Count 141 K/UL (150-450) L Mean Platelet Volume 7.9 FL (6.5-10.1) Neutrophils (%) (Auto) 62.1 % (45.0-75.0) Lymphocytes (%) (Auto) 24.5 % (20.0-45.0) Monocytes (%) (Auto) 9.2 % (1.0-10.0) Eosinophils (%) (Auto) 2.9 % (0.0-3.0) Basophils (%) (Auto) 1.3 % (0.0-2.0) Sodium Level 133 MMOL/L (136-145) L Potassium Level 5.3 MMOL/L (3.5-5.1) H Chloride Level 100 MMOL/L (98-107) Carbon Dioxide Level 27 MMOL/L (21-32) Anion Gap 6 mmol/L (5-15) Blood Urea Nitrogen 30 mg/dL (7-18) H Creatinine 6.2 MG/DL (0.55-1.30) H Estimat Glomerular Filtration Rate 10.9 mL/min (>60) Glucose Level 87 MG/DL (74-106) Calcium Level 7.8 MG/DL (8.5-10.1) L Phosphorus Level 3.7 MG/DL (2.5-4.9) Total Bilirubin 0.6 MG/DL (0.2-1.0) Aspartate Amino Transf (AST/SGOT) 13 U/L (15-37) L Alanine Aminotransferase (ALT/SGPT) 13 U/L (12-78) Alkaline Phosphatase 81 U/L (46-116) Total Protein 7.5 G/DL (6.4-8.2) Albumin 2.2 G/DL (3.4-5.0) L Globulin 5.3 g/dL Albumin/Globulin Ratio 0.4 (1.0-2.7) L Test 09/19/20 05:39 POC Whole Blood Glucose Pending Current Medications Medications (Trade) Dose Ordered Sig/Marcelo Route PRN Reason Start Time Stop Time Status Last Admin Dose Admin Acetaminophen (Tylenol) 650 mg Q4H PRN ORAL Mild Pain (Pain Scale 1-3) 09/14/20 22:15 10/14/20 22:14 Aspirin (Ecotrin) 81 mg DAILY ORAL 09/15/20 09:00 10/30/20 08:59 09/19/20 10:00 Atorvastatin Calcium (Lipitor) 80 mg BEDTIME ORAL 09/15/20 21:00 12/14/20 20:59 09/18/20 21:00 Calcium Acetate (Phoslo) 667 mg DAILY ORAL 09/15/20 09:00 12/14/20 08:59 09/19/20 10:00 Carvedilol (Coreg) 3.125 mg BID ORAL 09/15/20 09:00 10/15/20 08:59 09/18/20 17:29 Dextrose (Dextrose 50%) 25 ml Q30M PRN IV Hypoglycemia 09/14/20 22:15 12/13/20 22:14 Dextrose (Dextrose 50%) 50 ml Q30M PRN IV Hypoglycemia 09/14/20 22:15 12/13/20 22:14 Famotidine (Pepcid) 20 mg DAILY ORAL 09/15/20 09:00 12/14/20 08:59 09/19/20 10:00 Gabapentin (Neurontin) 300 mg BID ORAL 09/15/20 09:00 10/15/20 08:59 09/19/20 10:00 Heparin Sodium (Porcine) (Heparin 5000 units/ml) 5,000 units EVERY 12 HOURS SUBQ 09/15/20 21:00 10/30/20 20:59 09/17/20 21:13 Heparin Sodium (Porcine) (Heparin Sod 1000 units/ml 10ml) 2,000 unit ONCE PRN IV HD 09/19/20 06:00 09/19/20 23:59 Insulin Aspart (NovoLOG) BEFORE MEALS AND HS SUBQ 09/15/20 06:30 12/14/20 06:29 09/15/20 21:21 Insulin Detemir (Levemir) 6 units Q24H SUBQ 09/18/20 10:00 12/17/20 09:59 Insulin Detemir (Levemir) 12 units QHS SUBQ 09/18/20 21:00 12/17/20 20:59 Ipratropium Timblin (Atrovent) 500 mcg BID PRN HHN Shortness of Breath 09/14/20 23:15 09/19/20 23:14 Pantoprazole (Protonix) 40 mg DAILY ORAL 09/15/20 09:00 10/15/20 08:59 09/19/20 10:00 Piperacillin Sod/ Tazobactam Sod 2.25 gm/Dextrose 55 ml @ 110 mls/hr Q8HR IV 09/18/20 14:00 09/23/20 13:59 09/19/20 05:47 Sitagliptin Phosphate (Januvia) 25 mg DAILY ORAL 09/15/20 09:00 10/15/20 08:59 09/19/20 09:59 Sodium Chloride 1,000 ml @ 500 mls/hr Q2H PRN IVLG sbp<90 during hd 09/19/20 06:00 09/19/20 23:59 Tramadol HCl (Ultram) 50 mg Q6H PRN ORAL pain 4-10 09/15/20 20:45 09/22/20 20:44 Vitamin D (Vitamin D) 2,000 intlu DAILY ORAL 09/15/20 09:00 10/15/20 08:59 09/19/20 10:01 Saurav Martinez MD Sep 19, 2020 10:51
--- NOTE | 2020-09-19 12:22 | General Progress Note ---
Subjective Allergies: Coded Allergies: No Known Allergies (Verified , 02/16/18) Subjective care noted cultures growing ID noted events reviewed Objective Last 24 Hour Vital Signs Date Time Temp Pulse Resp B/P (MAP) Pulse Ox O2 Delivery O2 Flow Rate FiO2 09/19/20 11:53 97.6 81 16 143/72 (95) 97 09/19/20 09:00 Room Air 09/19/20 08:00 98.1 85 16 155/92 (113) 98 09/19/20 04:00 98.0 85 16 136/75 (95) 98 09/19/20 01:00 97.3 97 09/19/20 00:00 97.3 83 17 134/77 (96) 97 09/18/20 21:00 97.7 98 09/18/20 21:00 Room Air 09/18/20 20:14 82 18 97 Room Air 21 09/18/20 20:00 97.7 84 18 146/85 (105) 98 09/18/20 17:29 85 125/70 09/18/20 17:00 97.8 95 09/18/20 16:00 97.8 83 18 127/80 (96) 95 09/18/20 13:00 97.5 98 Intake and Output 09/18/20 09/19/20 19:00 07:00 Intake Total 500 ml 1040 ml Balance 500 ml 1040 ml Intake Oral 500 ml 1040 ml # Voids 2 2 # Bowel Movements 1 1 Laboratory Tests 09/18/20 16:54: POC Whole Blood Glucose 81 09/18/20 21:04: POC Whole Blood Glucose [Pending] 09/19/20 05:00: White Blood Count 6.1, Red Blood Count 3.25L, Hemoglobin 9.7L, Hematocrit 30.1L, Mean Corpuscular Volume 93, Mean Corpuscular Hemoglobin 30.0, Mean Corpuscular Hemoglobin Concent 32.3, Red Cell Distribution Width 18.0H, Platelet Count 141L, Mean Platelet Volume 7.9, Neutrophils (%) (Auto) 62.1, Lymphocytes (%) (Auto) 24.5, Monocytes (%) (Auto) 9.2, Eosinophils (%) (Auto) 2.9, Basophils (%) (Auto) 1.3, Sodium Level 133L, Potassium Level 5.3H, Chloride Level 100, Carbon Dioxide Level 27, Anion Gap 6, Blood Urea Nitrogen 30H, Creatinine 6.2H, Estimat Glomerular Filtration Rate 10.9, Glucose Level 87, Calcium Level 7.8L, Phosphorus Level 3.7, Total Bilirubin 0.6, Aspartate Amino Transf (AST/SGOT) 13L , Alanine Aminotransferase (ALT/SGPT) 13, Alkaline Phosphatase 81, Total Protein 7.5, Albumin 2.2L, Globulin 5.3, Albumin/Globulin Ratio 0.4L 09/19/20 05:39: POC Whole Blood Glucose [Pending] 09/19/20 11:59: POC Whole Blood Glucose 129H Height (Feet): 5 Height (Inches): 9.00 Weight (Pounds): 190 Objective WDWN NAD clear breath sounds bilaterally without rhonchi or wheeze [id number] without MRG NABS nontender no HSM no CC noted right knee swelling and leg edema nonfocal Assessment/Plan Assessment/Plan: Assessment ESRD possible septic knee- GNR + ho TKR hypertension ho CAD and CABG hypertension Plan care reviewed/ transfer to [facility] if able for higher level of care venous US negative awaiting final aspiration results- proteus awaiting Ortho ID noted continue meds and monitor blood sugars follow up on culture results close follow up impression, plan, and exam edited and reviewed in detail care discussed with Lazaro Marcelo MD Sep 19, 2020 12:22
--- NOTE | 2020-09-19 13:26 | Nephrology Progress Note ---
Assessment/Plan Plan Septic Rt. Knee - IV Abx. Per Dr. Franks. ESRD - HD TTS. On transfer list for [facility] Subjective Subjective c/o Rt. Knee pain Objective Objective Last 24 Hour Vital Signs Date Time Temp Pulse Resp B/P (MAP) Pulse Ox O2 Delivery O2 Flow Rate FiO2 09/19/20 11:53 97.6 81 16 143/72 (95) 97 09/19/20 09:00 Room Air 09/19/20 08:00 98.1 85 16 155/92 (113) 98 09/19/20 04:00 98.0 85 16 136/75 (95) 98 09/19/20 01:00 97.3 97 09/19/20 00:00 97.3 83 17 134/77 (96) 97 09/18/20 21:00 97.7 98 09/18/20 21:00 Room Air 09/18/20 20:14 82 18 97 Room Air 21 09/18/20 20:00 97.7 84 18 146/85 (105) 98 09/18/20 17:29 85 125/70 09/18/20 17:00 97.8 95 09/18/20 16:00 97.8 83 18 127/80 (96) 95 Intake and Output 09/18/20 09/19/20 19:00 07:00 Intake Total 500 ml 1040 ml Balance 500 ml 1040 ml Intake Oral 500 ml 1040 ml # Voids 2 2 # Bowel Movements 1 1 Laboratory Tests 09/18/20 16:54: POC Whole Blood Glucose 81 09/18/20 21:04: POC Whole Blood Glucose [Pending] 09/19/20 05:00: White Blood Count 6.1, Red Blood Count 3.25L, Hemoglobin 9.7L, Hematocrit 30.1L, Mean Corpuscular Volume 93, Mean Corpuscular Hemoglobin 30.0, Mean Corpuscular Hemoglobin Concent 32.3, Red Cell Distribution Width 18.0H, Platelet Count 141L, Mean Platelet Volume 7.9, Neutrophils (%) (Auto) 62.1, Lymphocytes (%) (Auto) 24.5, Monocytes (%) (Auto) 9.2, Eosinophils (%) (Auto) 2.9, Basophils (%) (Auto) 1.3, Sodium Level 133L, Potassium Level 5.3H, Chloride Level 100, Carbon Dioxide Level 27, Anion Gap 6, Blood Urea Nitrogen 30H, Creatinine 6.2H, Estimat Glomerular Filtration Rate 10.9, Glucose Level 87, Calcium Level 7.8L, Phosphorus Level 3.7, Total Bilirubin 0.6, Aspartate Amino Transf (AST/SGOT) 13L , Alanine Aminotransferase (ALT/SGPT) 13, Alkaline Phosphatase 81, Total Protein 7.5, Albumin 2.2L, Globulin 5.3, Albumin/Globulin Ratio 0.4L, Hepatitis B Surface Antigen [Pending] 09/19/20 05:39: POC Whole Blood Glucose [Pending] 09/19/20 11:59: POC Whole Blood Glucose 129H Height (Feet): 5 Height (Inches): 9.00 Weight (Pounds): 190 Objective Poor vision CV RR lungs CTA Abd SNT. BS + E Rt Knee tender. Dressed. MAXIMINO AVF + bruit Kelley Bran MD Sep 19, 2020 13:26
[2020-09-19] MEDS: cefTRIAXone 2 GM in D5W 55 ML IVPB SCH (14:02)
[2020-09-19] MEDS: Atorvastatin 80mg tab ORAL SCH (20:41)
[2020-09-20] VITALS (7 sets, daily range): BP systolic 127–176; BP diastolic 72–90
[2020-09-20] MEDS: NovoLOG Insulin Flexpen SUBQ SCH ×4 (06:02→20:44)
[2020-09-20 06:43] LABS: ALBUMIN 2.2 G/DL (3.4-5.0); ALBUMIN/GLOBULIN RATIO 0.4 (1.0-2.7); BILIRUBIN,TOTAL 0.5 MG/DL (0.2-1.0); CALCIUM 7.9 MG/DL (8.5-10.1); CREATININE 5.1 MG/DL (0.55-1.30); POTASSIUM 4.4 MMOL/L (3.5-5.1)
[2020-09-20] MEDS: sitaGLIPtin 25mg tab ORAL SCH (08:58)
[2020-09-20] MEDS: Vitamin D 1000 units Tab ORAL SCH (08:58)
[2020-09-20] MEDS: Heparin 5000 units/ml inj SUBQ SCH ×2 (08:58→20:43)
[2020-09-20] MEDS: Aspirin EC 81mg tab ORAL SCH (08:58)
[2020-09-20] MEDS: Levemir Flexpen SUBQ SCH ×2 (10:08→20:41)
--- NOTE | 2020-09-20 11:22 | Infectious Diseases Prog Note ---
Assessment/Plan Assessment/Plan antibiotics : ceftriaxone A 1. Right knee arthroplasty infection with proteus 2. Diabetes. 3. Hypertension. 4. Renal failure, on dialysis. P 1. continue ceftriaxone 2. plan per surgery Subjective Constitutional: Denies: fever, chills Respiratory: Denies: shortness of breath, dry cough Gastrointestinal/Abdominal: Denies: nausea, vomiting, diarrhea Musculoskeletal: Denies: pain Allergies: Coded Allergies: No Known Allergies (Verified , 02/16/18) Objective Last 24 Hour Vital Signs Date Time Temp Pulse Resp B/P (MAP) Pulse Ox O2 Delivery O2 Flow Rate FiO2 09/20/20 09:00 Room Air 09/20/20 08:58 90 176/83 09/20/20 08:00 97.9 90 18 176/83 (114) 98 09/20/20 04:00 98.0 76 16 128/72 (90) 94 09/20/20 00:00 97.6 94 18 127/75 (92) 94 09/19/20 21:00 Room Air 09/19/20 20:00 98.1 96 18 128/78 (95) 98 09/19/20 18:16 90 156/72 09/19/20 15:45 98.0 83 16 152/66 (94) 97 09/19/20 11:53 97.6 81 16 143/72 (95) 97 Height (Feet): 5 Height (Inches): 9.00 Weight (Pounds): 190 Respiratory/Chest: lungs clear Cardiovascular: normal rate, regular rhythm, no gallop/murmur Abdomen: soft, non tender Extremities: no edema, other - right leg wound Laboratory Tests Test 09/19/20 11:59 09/19/20 16:55 09/19/20 20:34 09/20/20 05:45 POC Whole Blood Glucose 129 MG/DL (74-106) H 124 MG/DL (74-106) H Pending Sodium Level 140 MMOL/L (136-145) Potassium Level 4.4 MMOL/L (3.5-5.1) Chloride Level 105 MMOL/L (98-107) Carbon Dioxide Level 31 MMOL/L (21-32) Anion Gap 4 mmol/L (5-15) L Blood Urea Nitrogen 24 mg/dL (7-18) H Creatinine 5.1 MG/DL (0.55-1.30) H Estimat Glomerular Filtration Rate 13.7 mL/min (>60) Glucose Level 114 MG/DL (74-106) H Calcium Level 7.9 MG/DL (8.5-10.1) L Total Bilirubin 0.5 MG/DL (0.2-1.0) Aspartate Amino Transf (AST/SGOT) 15 U/L (15-37) Alanine Aminotransferase (ALT/SGPT) 12 U/L (12-78) Alkaline Phosphatase 85 U/L (46-116) Total Protein 7.6 G/DL (6.4-8.2) Albumin 2.2 G/DL (3.4-5.0) L Globulin 5.4 g/dL Albumin/Globulin Ratio 0.4 (1.0-2.7) L Test 09/20/20 05:57 POC Whole Blood Glucose 113 MG/DL (74-106) H Current Medications Medications (Trade) Dose Ordered Sig/Marcelo Route PRN Reason Start Time Stop Time Status Last Admin Dose Admin Acetaminophen (Tylenol) 650 mg Q4H PRN ORAL Mild Pain (Pain Scale 1-3) 09/14/20 22:15 10/14/20 22:14 Aspirin (Ecotrin) 81 mg DAILY ORAL 09/15/20 09:00 10/30/20 08:59 09/20/20 08:58 Atorvastatin Calcium (Lipitor) 80 mg BEDTIME ORAL 09/15/20 21:00 12/14/20 20:59 09/19/20 20:41 Calcium Acetate (Phoslo) 667 mg DAILY ORAL 09/15/20 09:00 12/14/20 08:59 09/20/20 08:58 Carvedilol (Coreg) 3.125 mg BID ORAL 09/15/20 09:00 10/15/20 08:59 09/20/20 08:58 Ceftriaxone Sodium 2 gm/ Dextrose 55 ml @ 110 mls/hr Q24H IVPB 09/19/20 13:00 09/26/20 12:59 09/19/20 14:02 Dextrose (Dextrose 50%) 25 ml Q30M PRN IV Hypoglycemia 09/14/20 22:15 12/13/20 22:14 Dextrose (Dextrose 50%) 50 ml Q30M PRN IV Hypoglycemia 09/14/20 22:15 12/13/20 22:14 Famotidine (Pepcid) 20 mg DAILY ORAL 09/15/20 09:00 12/14/20 08:59 09/20/20 08:58 Gabapentin (Neurontin) 300 mg BID ORAL 09/15/20 09:00 10/15/20 08:59 09/20/20 08:58 Heparin Sodium (Porcine) (Heparin 5000 units/ml) 5,000 units EVERY 12 HOURS SUBQ 09/15/20 21:00 10/30/20 20:59 09/17/20 21:13 Insulin Aspart (NovoLOG) BEFORE MEALS AND HS SUBQ 09/15/20 06:30 12/14/20 06:29 09/15/20 21:21 Insulin Detemir (Levemir) 6 units Q24H SUBQ 09/18/20 10:00 12/17/20 09:59 09/20/20 10:08 Insulin Detemir (Levemir) 12 units QHS SUBQ 09/18/20 21:00 12/17/20 20:59 09/19/20 20:46 Pantoprazole (Protonix) 40 mg DAILY ORAL 09/15/20 09:00 10/15/20 08:59 09/20/20 08:58 Sitagliptin Phosphate (Januvia) 25 mg DAILY ORAL 09/15/20 09:00 10/15/20 08:59 09/20/20 08:58 Tramadol HCl (Ultram) 50 mg Q6H PRN ORAL pain 4-10 09/15/20 20:45 09/22/20 20:44 Vitamin D (Vitamin D) 2,000 intlu DAILY ORAL 09/15/20 09:00 10/15/20 08:59 09/20/20 08:58 Chuck Salas MD Sep 20, 2020 11:22
--- NOTE | 2020-09-20 11:25 | General Progress Note ---
Subjective Allergies: Coded Allergies: No Known Allergies (Verified , 02/16/18) Subjective care noted cultures growing ID noted events reviewed Objective Last 24 Hour Vital Signs Date Time Temp Pulse Resp B/P (MAP) Pulse Ox O2 Delivery O2 Flow Rate FiO2 09/20/20 09:00 Room Air 09/20/20 08:58 90 176/83 09/20/20 08:00 97.9 90 18 176/83 (114) 98 09/20/20 04:00 98.0 76 16 128/72 (90) 94 09/20/20 00:00 97.6 94 18 127/75 (92) 94 09/19/20 21:00 Room Air 09/19/20 20:00 98.1 96 18 128/78 (95) 98 09/19/20 18:16 90 156/72 09/19/20 15:45 98.0 83 16 152/66 (94) 97 09/19/20 11:53 97.6 81 16 143/72 (95) 97 Intake and Output 09/19/20 09/20/20 19:00 07:00 Intake Total 480 ml 400 ml Output Total 2000 ml Balance -1520 ml 400 ml Intake Oral 480 ml 400 ml Hemodialysis UF 2000 ml # Voids 2 # Bowel Movements 1 Laboratory Tests 09/19/20 11:59: POC Whole Blood Glucose 129H 09/19/20 16:55: POC Whole Blood Glucose 124H 09/19/20 20:34: POC Whole Blood Glucose [Pending] 09/20/20 05:45: Sodium Level 140, Potassium Level 4.4, Chloride Level 105, Carbon Dioxide Level 31, Anion Gap 4L, Blood Urea Nitrogen 24H, Creatinine 5.1H, Estimat Glomerular Filtration Rate 13.7, Glucose Level 114H, Calcium Level 7.9L, Total Bilirubin 0.5, Aspartate Amino Transf (AST/SGOT) 15, Alanine Aminotransferase (ALT/SGPT) 12, Alkaline Phosphatase 85, Total Protein 7.6, Albumin 2.2L, Globulin 5.4, Albumin/Globulin Ratio 0.4L 09/20/20 05:57: POC Whole Blood Glucose 113H Height (Feet): 5 Height (Inches): 9.00 Weight (Pounds): 190 Objective WDWN NAD clear breath sounds bilaterally without rhonchi or wheeze [id number] without MRG NABS nontender no HSM no CC noted right knee swelling and leg edema nonfocal Assessment/Plan Assessment/Plan: Assessment ESRD possible septic knee- GNR + ho TKR hypertension ho CAD and CABG hypertension Plan care reviewed/ [facility] if able for higher level of care called transfer center for bed; they are currently full venous US negative awaiting final aspiration results- proteus awaiting Ortho ID noted continue meds and monitor blood sugars follow up on culture results close follow up impression, plan, and exam edited and reviewed in detail care discussed with Lazaro Marcelo MD Sep 20, 2020 11:25
[2020-09-20] MEDS: cefTRIAXone 2 GM in D5W 55 ML IVPB SCH (13:23)
[2020-09-20] MEDS ORDERED: Tubing IV Secondary IV ONE (16:06)
--- NOTE | 2020-09-20 16:09 | Nephrology Progress Note ---
Assessment/Plan Plan Septic Rt. Knee - IV Abx. Per Dr. Franks. ESRD - HD TTS. On transfer list for [facility] Subjective Subjective c/o Rt. Knee pain Objective Objective Last 24 Hour Vital Signs Date Time Temp Pulse Resp B/P (MAP) Pulse Ox O2 Delivery O2 Flow Rate FiO2 09/20/20 11:54 97.4 88 18 145/80 (101) 98 09/20/20 09:00 Room Air 09/20/20 08:58 90 176/83 09/20/20 08:00 97.9 90 18 176/83 (114) 98 09/20/20 04:00 98.0 76 16 128/72 (90) 94 09/20/20 00:00 97.6 94 18 127/75 (92) 94 09/19/20 21:00 Room Air 09/19/20 20:00 98.1 96 18 128/78 (95) 98 09/19/20 18:16 90 156/72 Intake and Output 09/19/20 09/20/20 19:00 07:00 Intake Total 480 ml 400 ml Output Total 2000 ml Balance -1520 ml 400 ml Intake Oral 480 ml 400 ml Hemodialysis UF 2000 ml # Voids 2 # Bowel Movements 1 Laboratory Tests 09/19/20 16:55: POC Whole Blood Glucose 124H 09/19/20 20:34: POC Whole Blood Glucose [Pending] 09/20/20 05:45: Sodium Level 140, Potassium Level 4.4, Chloride Level 105, Carbon Dioxide Level 31, Anion Gap 4L, Blood Urea Nitrogen 24H, Creatinine 5.1H, Estimat Glomerular Filtration Rate 13.7, Glucose Level 114H, Calcium Level 7.9L, Total Bilirubin 0.5, Aspartate Amino Transf (AST/SGOT) 15, Alanine Aminotransferase (ALT/SGPT) 12, Alkaline Phosphatase 85, Total Protein 7.6, Albumin 2.2L, Globulin 5.4, Albumin/Globulin Ratio 0.4L 09/20/20 05:57: POC Whole Blood Glucose 113H 09/20/20 11:37: POC Whole Blood Glucose [Pending] Height (Feet): 5 Height (Inches): 9.00 Weight (Pounds): 190 Objective Poor vision CV RR lungs CTA Abd SNT. BS + E Rt Knee tender. Dressed. MAXIMINO AVF + bruit Kelley Bran MD Sep 20, 2020 16:09
[2020-09-20] MEDS: Atorvastatin 80mg tab ORAL SCH (20:40)
[2020-09-21] VITALS: BP 150/77
[2020-09-21 04:00] VITALS: BP 130/73
[2020-09-21] MEDS: NovoLOG Insulin Flexpen SUBQ SCH ×4 (05:50→21:00)
[2020-09-21 08:00] VITALS: BP 155/84
[2020-09-21] MEDS: Heparin 5000 units/ml inj SUBQ SCH ×2 (09:00→22:48)
[2020-09-21] MEDS: Aspirin EC 81mg tab ORAL SCH (09:06)
[2020-09-21] MEDS: sitaGLIPtin 25mg tab ORAL SCH (09:10)
[2020-09-21] MEDS: Levemir Flexpen SUBQ SCH ×2 (10:00→21:00)
[2020-09-21] MEDS: Vitamin D 1000 units Tab ORAL SCH (10:16)
[2020-09-21 12:00] VITALS: BP 153/93
--- NOTE | 2020-09-21 12:17 | Infectious Diseases Prog Note ---
Assessment/Plan Assessment/Plan A: 1. Right knee arthroplasty infection. 2. Diabetes. 3. Hypertension. 4. Renal failure, on dialysis. PLAN: 1. Continue Rocephin 2. Needs 2 step right knee replacement Subjective ROS Limited/Unobtainable: Yes Constitutional: Denies: fever Allergies: Coded Allergies: No Known Allergies (Verified , 02/16/18) Objective Last 24 Hour Vital Signs Date Time Temp Pulse Resp B/P (MAP) Pulse Ox O2 Delivery O2 Flow Rate FiO2 09/21/20 09:06 89 155/84 09/21/20 09:00 Room Air 09/21/20 08:00 98.4 89 20 155/84 (107) 95 09/21/20 04:00 97.6 73 19 130/73 (92) 96 09/21/20 00:00 98.1 88 18 150/77 (101) 100 09/20/20 21:00 Room Air 09/20/20 20:26 72 18 96 Room Air 21 09/20/20 20:00 99.7 91 19 143/90 (107) 96 09/20/20 18:55 98.1 91 21 166/89 (114) 96 09/20/20 17:20 89 85/80 09/20/20 16:00 98.0 89 22 161/85 (110) 97 Height (Feet): 5 Height (Inches): 9.00 Weight (Pounds): 190 HEENT: mucous membranes moist Respiratory/Chest: lungs clear Cardiovascular: normal rate Abdomen: soft, non tender Extremities: other - legs edema, R knee effusion Neurologic/Psychiatric: other - sleeping Laboratory Tests Test 09/20/20 16:56 POC Whole Blood Glucose Pending Current Medications Medications (Trade) Dose Ordered Sig/Marcelo Route PRN Reason Start Time Stop Time Status Last Admin Dose Admin Acetaminophen (Tylenol) 650 mg Q4H PRN ORAL Mild Pain (Pain Scale 1-3) 09/14/20 22:15 10/14/20 22:14 Aspirin (Ecotrin) 81 mg DAILY ORAL 09/15/20 09:00 10/30/20 08:59 09/21/20 09:06 Atorvastatin Calcium (Lipitor) 80 mg BEDTIME ORAL 09/15/20 21:00 12/14/20 20:59 09/20/20 20:40 Calcium Acetate (Phoslo) 667 mg DAILY ORAL 09/15/20 09:00 12/14/20 08:59 09/21/20 09:06 Carvedilol (Coreg) 3.125 mg BID ORAL 09/15/20 09:00 10/15/20 08:59 09/21/20 09:06 Ceftriaxone Sodium 2 gm/ Dextrose 55 ml @ 110 mls/hr Q24H IVPB 09/19/20 13:00 09/26/20 12:59 09/20/20 13:23 Dextrose (Dextrose 50%) 25 ml Q30M PRN IV Hypoglycemia 09/14/20 22:15 12/13/20 22:14 Dextrose (Dextrose 50%) 50 ml Q30M PRN IV Hypoglycemia 09/14/20 22:15 12/13/20 22:14 Famotidine (Pepcid) 20 mg DAILY ORAL 09/15/20 09:00 12/14/20 08:59 09/21/20 09:05 Gabapentin (Neurontin) 300 mg BID ORAL 09/15/20 09:00 10/15/20 08:59 09/21/20 09:05 Heparin Sodium (Porcine) (Heparin 5000 units/ml) 5,000 units EVERY 12 HOURS SUBQ 09/15/20 21:00 10/30/20 20:59 09/17/20 21:13 Insulin Aspart (NovoLOG) BEFORE MEALS AND HS SUBQ 09/15/20 06:30 12/14/20 06:29 09/15/20 21:21 Insulin Detemir (Levemir) 6 units Q24H SUBQ 09/18/20 10:00 12/17/20 09:59 09/20/20 10:08 Insulin Detemir (Levemir) 12 units QHS SUBQ 09/18/20 21:00 12/17/20 20:59 09/20/20 20:41 Pantoprazole (Protonix) 40 mg DAILY ORAL 09/15/20 09:00 10/15/20 08:59 09/21/20 09:05 Sitagliptin Phosphate (Januvia) 25 mg DAILY ORAL 09/15/20 09:00 10/15/20 08:59 09/21/20 09:10 Tramadol HCl (Ultram) 50 mg Q6H PRN ORAL pain 4-10 09/15/20 20:45 09/22/20 20:44 Vitamin D (Vitamin D) 2,000 unit DAILY ORAL 09/21/20 09:30 10/21/20 09:29 09/21/20 10:16 Saurav Martinez MD Sep 21, 2020 12:17
[2020-09-21] MEDS: cefTRIAXone 2 GM in D5W 55 ML IVPB SCH (13:00)
--- NOTE | 2020-09-21 15:34 | General Progress Note ---
Subjective Allergies: Coded Allergies: No Known Allergies (Verified , 02/16/18) Subjective care noted cultures growing and sensitivities reviewed ID noted events reviewed Objective Last 24 Hour Vital Signs Date Time Temp Pulse Resp B/P (MAP) Pulse Ox O2 Delivery O2 Flow Rate FiO2 09/21/20 12:00 97.3 83 20 153/93 (113) 95 09/21/20 09:06 89 155/84 09/21/20 09:00 Room Air 09/21/20 08:00 98.4 89 20 155/84 (107) 95 09/21/20 04:00 97.6 73 19 130/73 (92) 96 09/21/20 00:00 98.1 88 18 150/77 (101) 100 09/20/20 21:00 Room Air 09/20/20 20:26 72 18 96 Room Air 21 09/20/20 20:00 99.7 91 19 143/90 (107) 96 09/20/20 18:55 98.1 91 21 166/89 (114) 96 09/20/20 17:20 89 85/80 09/20/20 16:00 98.0 89 22 161/85 (110) 97 Intake and Output 09/20/20 09/21/20 19:00 07:00 Intake Total 450 ml Balance 450 ml Intake Oral 450 ml # Voids 2 # Bowel Movements 2 Laboratory Tests 09/20/20 16:56: POC Whole Blood Glucose [Pending] 09/21/20 10:18: POC Whole Blood Glucose [Pending] 09/21/20 12:26: POC Whole Blood Glucose 58L 09/21/20 13:02: POC Whole Blood Glucose 84 Height (Feet): 5 Height (Inches): 9.00 Weight (Pounds): 190 Objective WDWN NAD clear breath sounds bilaterally without rhonchi or wheeze [id number] without MRG NABS nontender no HSM no CC noted right knee swelling and leg edema nonfocal Assessment/Plan Assessment/Plan: Assessment ESRD possible septic knee- GNR + ho TKR hypertension ho CAD and CABG hypertension Plan care reviewed/ transfer to [facility] if able for higher level of care called transfer center for bed; they are currently full venous US negative awaiting final aspiration results- proteus awaiting Ortho ID noted continue meds and monitor blood sugars follow up on culture results close follow up impression, plan, and exam edited and reviewed in detail care discussed with Lazaro Marcelo MD Sep 21, 2020 15:34
[2020-09-21 16:00] VITALS: BP 155/75
--- NOTE | 2020-09-21 16:03 | Nephrology Progress Note ---
Assessment/Plan Plan Septic Rt. Knee - IV Abx. Per Dr. Franks. ESRD - HD TTS. On transfer list for [facility] Isolated "R/O Covid 19" Subjective Subjective c/o Rt. Knee pain Objective Objective Last 24 Hour Vital Signs Date Time Temp Pulse Resp B/P (MAP) Pulse Ox O2 Delivery O2 Flow Rate FiO2 09/21/20 12:00 97.3 83 20 153/93 (113) 95 09/21/20 09:06 89 155/84 09/21/20 09:00 Room Air 09/21/20 08:00 98.4 89 20 155/84 (107) 95 09/21/20 04:00 97.6 73 19 130/73 (92) 96 09/21/20 00:00 98.1 88 18 150/77 (101) 100 09/20/20 21:00 Room Air 09/20/20 20:26 72 18 96 Room Air 21 09/20/20 20:00 99.7 91 19 143/90 (107) 96 09/20/20 18:55 98.1 91 21 166/89 (114) 96 09/20/20 17:20 89 85/80 Intake and Output 09/20/20 09/21/20 19:00 07:00 Intake Total 450 ml Balance 450 ml Intake Oral 450 ml # Voids 2 # Bowel Movements 2 Laboratory Tests 09/20/20 16:56: POC Whole Blood Glucose [Pending] 09/21/20 10:18: POC Whole Blood Glucose [Pending] 09/21/20 12:26: POC Whole Blood Glucose 58L 09/21/20 13:02: POC Whole Blood Glucose 84 Height (Feet): 5 Height (Inches): 9.00 Weight (Pounds): 190 Objective Poor vision CV RR lungs CTA Abd SNT. BS + E Rt Knee tender. Dressed. MAXIMINO AVF + winterit Kelley Bran MD Sep 21, 2020 16:03
[2020-09-21 20:00] VITALS: BP 159/72
[2020-09-21] MEDS: Atorvastatin 80mg tab ORAL SCH (22:46)
[2020-09-22] VITALS (7 sets, daily range): BP systolic 132–152; BP diastolic 75–94
[2020-09-22] MEDS: NovoLOG Insulin Flexpen SUBQ SCH ×4 (06:45→21:00)
[2020-09-22] MEDS: Heparin 5000 units/ml inj SUBQ SCH ×2 (09:00→20:54)
[2020-09-22] MEDS: Aspirin EC 81mg tab ORAL SCH (09:19)
[2020-09-22] MEDS: Vitamin D 1000 units Tab ORAL SCH (09:19)
[2020-09-22] MEDS: sitaGLIPtin 25mg tab ORAL SCH (09:19)
[2020-09-22] MEDS: Levemir Flexpen SUBQ SCH ×2 (11:01→21:00)
--- NOTE | 2020-09-22 11:12 | Infectious Diseases Prog Note ---
Assessment/Plan Assessment/Plan antibiotics : ceftriaxone A 1. Right knee arthroplasty infection with proteus 2. Diabetes. 3. Hypertension. 4. Renal failure, on dialysis. P 1. continue ceftriaxone 2. plan per surgery Subjective Constitutional: Denies: fever, chills Respiratory: Denies: shortness of breath, dry cough Gastrointestinal/Abdominal: Denies: nausea, vomiting, diarrhea Musculoskeletal: Denies: pain Allergies: Coded Allergies: No Known Allergies (Verified , 02/16/18) Objective Last 24 Hour Vital Signs Date Time Temp Pulse Resp B/P (MAP) Pulse Ox O2 Delivery O2 Flow Rate FiO2 09/22/20 09:19 91 140/75 09/22/20 08:00 97.5 91 18 140/75 (96) 96 09/22/20 04:00 98.1 81 18 152/75 (100) 99 09/22/20 00:00 97.3 75 18 147/79 (101) 97 09/21/20 21:00 Room Air 09/21/20 20:00 98.7 84 18 159/72 (101) 99 09/21/20 16:00 98.4 88 20 155/75 (101) 98 09/21/20 16:00 98.4 88 20 155/75 (101) 98 09/21/20 12:00 97.3 83 20 153/93 (113) 95 Height (Feet): 5 Height (Inches): 9.00 Weight (Pounds): 190 Respiratory/Chest: lungs clear Cardiovascular: normal rate, regular rhythm, no gallop/murmur Abdomen: soft, non tender Extremities: no edema, other - right leg wound Microbiology Date/Time Source Procedure Growth Status 09/20/20 10:50 Nasopharynx Coronavirus COVID-19 PCR (JANETH) - Final Complete Laboratory Tests Test 09/21/20 12:26 09/21/20 13:02 09/21/20 17:05 09/21/20 22:59 POC Whole Blood Glucose 58 MG/DL (74-106) L 84 MG/DL (74-106) Pending Pending Test 09/22/20 06:42 09/22/20 10:56 POC Whole Blood Glucose Pending 127 MG/DL (74-106) H Current Medications Medications (Trade) Dose Ordered Sig/Marcelo Route PRN Reason Start Time Stop Time Status Last Admin Dose Admin Acetaminophen (Tylenol) 650 mg Q4H PRN ORAL Mild Pain (Pain Scale 1-3) 09/14/20 22:15 10/14/20 22:14 Aspirin (Ecotrin) 81 mg DAILY ORAL 09/15/20 09:00 10/30/20 08:59 09/22/20 09:19 Atorvastatin Calcium (Lipitor) 80 mg BEDTIME ORAL 09/15/20 21:00 12/14/20 20:59 09/21/20 22:46 Calcium Acetate (Phoslo) 667 mg DAILY ORAL 09/15/20 09:00 12/14/20 08:59 09/22/20 09:19 Carvedilol (Coreg) 3.125 mg BID ORAL 09/15/20 09:00 10/15/20 08:59 09/22/20 09:19 Ceftriaxone Sodium 2 gm/ Dextrose 55 ml @ 110 mls/hr Q24H IVPB 09/19/20 13:00 09/26/20 12:59 09/21/20 13:00 Dextrose (Dextrose 50%) 25 ml Q30M PRN IV Hypoglycemia 09/14/20 22:15 12/13/20 22:14 Dextrose (Dextrose 50%) 50 ml Q30M PRN IV Hypoglycemia 09/14/20 22:15 12/13/20 22:14 Famotidine (Pepcid) 20 mg DAILY ORAL 09/15/20 09:00 12/14/20 08:59 09/22/20 09:18 Gabapentin (Neurontin) 300 mg BID ORAL 09/15/20 09:00 10/15/20 08:59 09/22/20 09:19 Heparin Sodium (Porcine) (Heparin 5000 units/ml) 5,000 units EVERY 12 HOURS SUBQ 09/15/20 21:00 10/30/20 20:59 09/21/20 22:48 Insulin Aspart (NovoLOG) BEFORE MEALS AND HS SUBQ 09/15/20 06:30 12/14/20 06:29 09/22/20 06:45 Insulin Detemir (Levemir) 6 units Q24H SUBQ 09/18/20 10:00 12/17/20 09:59 09/22/20 11:01 Insulin Detemir (Levemir) 12 units QHS SUBQ 09/18/20 21:00 12/17/20 20:59 09/20/20 20:41 Pantoprazole (Protonix) 40 mg DAILY ORAL 09/15/20 09:00 10/15/20 08:59 09/22/20 09:19 Sitagliptin Phosphate (Januvia) 25 mg DAILY ORAL 09/15/20 09:00 10/15/20 08:59 09/22/20 09:19 Tramadol HCl (Ultram) 50 mg Q6H PRN ORAL pain 4-10 09/15/20 20:45 09/22/20 20:44 Vitamin D (Vitamin D) 2,000 unit DAILY ORAL 09/21/20 09:30 10/21/20 09:29 09/22/20 09:19 Chuck Salas MD Sep 22, 2020 11:12
--- NOTE | 2020-09-22 12:37 | General Progress Note ---
Subjective Allergies: Coded Allergies: No Known Allergies (Verified , 02/16/18) Subjective care noted cultures growing and sensitivities reviewed ID noted events reviewed still no bed at [facility] nontoxic Objective Last 24 Hour Vital Signs Date Time Temp Pulse Resp B/P (MAP) Pulse Ox O2 Delivery O2 Flow Rate FiO2 09/22/20 12:00 97.5 90 18 132/94 (107) 96 09/22/20 09:19 91 140/75 09/22/20 09:00 Room Air 09/22/20 08:00 97.5 91 18 140/75 (96) 96 09/22/20 04:00 98.1 81 18 152/75 (100) 99 09/22/20 00:00 97.3 75 18 147/79 (101) 97 09/21/20 21:00 Room Air 09/21/20 20:00 98.7 84 18 159/72 (101) 99 09/21/20 16:00 98.4 88 20 155/75 (101) 98 09/21/20 16:00 98.4 88 20 155/75 (101) 98 Intake and Output 09/21/20 09/22/20 19:00 07:00 Intake Total 960 ml 480 ml Output Total 2500 ml Balance 960 ml -2020 ml Intake Oral 960 ml 480 ml Hemodialysis UF 2500 ml # Voids 1 2 Laboratory Tests 09/21/20 13:02: POC Whole Blood Glucose 84 09/21/20 17:05: POC Whole Blood Glucose [Pending] 09/21/20 22:59: POC Whole Blood Glucose [Pending] 09/22/20 06:42: POC Whole Blood Glucose [Pending] 09/22/20 10:56: POC Whole Blood Glucose 127H 09/22/20 12:08: POC Whole Blood Glucose 107H Height (Feet): 5 Height (Inches): 9.00 Weight (Pounds): 190 Objective WDWN NAD clear breath sounds bilaterally without rhonchi or wheeze [id number] without MRG NABS nontender no HSM no CC noted right knee swelling and leg edema nonfocal Assessment/Plan Assessment/Plan: Assessment ESRD possible septic knee- GNR + ho TKR hypertension ho CAD and CABG hypertension Plan care reviewed/ transfer to [facility] if able for higher level of care called transfer center for bed; they are currently full venous US negative awaiting final aspiration results- proteus awaiting Ortho ID noted continue meds and monitor blood sugars follow up on culture results close follow up impression, plan, and exam edited and reviewed in detail care discussed with Lazaro Marcelo MD Sep 22, 2020 12:37
[2020-09-22] MEDS: cefTRIAXone 2 GM in D5W 55 ML IVPB SCH (13:03)
--- NOTE | 2020-09-22 14:02 | Nephrology Progress Note ---
Assessment/Plan Plan Septic Rt. Knee - IV Abx. Per Dr. Franks. ESRD - HD TTS. Not On transfer list for [facility] Isolated "R/O Covid 19 Subjective Subjective c/o Rt. Knee pain Objective Objective Last 24 Hour Vital Signs Date Time Temp Pulse Resp B/P (MAP) Pulse Ox O2 Delivery O2 Flow Rate FiO2 09/22/20 12:00 97.5 90 18 132/94 (107) 96 09/22/20 09:19 91 140/75 09/22/20 09:00 Room Air 09/22/20 08:00 97.5 91 18 140/75 (96) 96 09/22/20 04:00 98.1 81 18 152/75 (100) 99 09/22/20 00:00 97.3 75 18 147/79 (101) 97 09/21/20 21:00 Room Air 09/21/20 20:00 98.7 84 18 159/72 (101) 99 09/21/20 16:00 98.4 88 20 155/75 (101) 98 09/21/20 16:00 98.4 88 20 155/75 (101) 98 Intake and Output 09/21/20 09/22/20 19:00 07:00 Intake Total 960 ml 480 ml Output Total 2500 ml Balance 960 ml -2020 ml Intake Oral 960 ml 480 ml Hemodialysis UF 2500 ml # Voids 1 2 Laboratory Tests 09/21/20 17:05: POC Whole Blood Glucose [Pending] 09/21/20 22:59: POC Whole Blood Glucose [Pending] 09/22/20 06:42: POC Whole Blood Glucose [Pending] 09/22/20 10:56: POC Whole Blood Glucose 127H 09/22/20 12:08: POC Whole Blood Glucose 107H Height (Feet): 5 Height (Inches): 9.00 Weight (Pounds): 190 Objective Poor vision CV RR lungs CTA Abd SNT. BS + E Rt Knee tender. Dressed. MAXIMINO AVF + bruit Kelley Bran MD Sep 22, 2020 14:02
[2020-09-22] MEDS: Atorvastatin 80mg tab ORAL SCH (21:09)
[2020-09-23] VITALS (10 sets, daily range): BP systolic 117–179; BP diastolic 53–144
[2020-09-23] MEDS: NovoLOG Insulin Flexpen SUBQ SCH ×4 (05:48→21:00)
[2020-09-23] MEDS: Vitamin D 1000 units Tab ORAL SCH (09:30)
[2020-09-23] MEDS: sitaGLIPtin 25mg tab ORAL SCH (09:31)
[2020-09-23] MEDS: Aspirin EC 81mg tab ORAL SCH (09:31)
[2020-09-23] MEDS: Heparin 5000 units/ml inj SUBQ SCH ×2 (09:32→21:00)
[2020-09-23] MEDS: Levemir Flexpen SUBQ SCH ×2 (09:32→21:00)
--- NOTE | 2020-09-23 13:25 | Nephrology Progress Note ---
Assessment/Plan Problem List: (1) Insulin dependent diabetes mellitus (2) Septic arthritis (3) ESRD (end stage renal disease) on dialysis (4) Infection of right knee Plan dialysis 09/23, continue iv antibiotics Subjective Constitutional: Reports: weakness HEENT: Reports: no symptoms Genitourinary: Reports: no symptoms Neurologic/Psychiatric: Reports: no symptoms Subjective mod r knee pain Objective Objective Last 24 Hour Vital Signs Date Time Temp Pulse Resp B/P (MAP) Pulse Ox O2 Delivery O2 Flow Rate FiO2 09/23/20 12:00 97.6 93 18 179/53 (95) 96 93 09/23/20 09:30 96 175/144 09/23/20 09:00 Room Air 09/23/20 08:00 98.3 96 19 175/144 (154) 98 96 09/23/20 04:00 98.4 96 19 153/84 (107) 98 96 09/23/20 00:00 96.9 94 18 176/89 (118) 98 94 09/22/20 21:35 97.5 92 18 150/86 (107) 98 09/22/20 21:33 Room Air 09/22/20 20:00 97.5 78 20 150/77 (101) 98 78 09/22/20 17:32 91 135/80 09/22/20 16:00 97.9 91 18 135/80 (98) 99 Intake and Output 09/22/20 09/23/20 19:00 07:00 Intake Total 480 ml Balance 480 ml Intake Oral 480 ml # Voids 3 Laboratory Tests 09/22/20 16:46: POC Whole Blood Glucose 100 Height (Feet): 5 Height (Inches): 9.00 Weight (Pounds): 190 General Appearance: no apparent distress, alert EENT: normal ENT inspection Neck: normal alignment Cardiovascular: normal rate Respiratory/Chest: lungs clear Abdomen: soft, no organomegaly Extremities: other - r knee mod swelling 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
[2020-09-23] MEDS: cefTRIAXone 2 GM in D5W 55 ML IVPB SCH (15:21)
--- NOTE | 2020-09-23 18:55 | General Progress Note ---
Subjective Allergies: Coded Allergies: No Known Allergies (Verified , 02/16/18) Subjective care noted cultures growing and sensitivities reviewed ID noted events reviewed still no bed at [facility] nontoxic Objective Last 24 Hour Vital Signs Date Time Temp Pulse Resp B/P (MAP) Pulse Ox O2 Delivery O2 Flow Rate FiO2 09/23/20 17:29 94 117/87 09/23/20 16:46 97.6 09/23/20 16:00 97.6 94 19 117/87 (97) 97 94 09/23/20 12:00 97.6 93 18 179/53 (95) 96 93 09/23/20 09:30 96 175/144 09/23/20 09:00 Room Air 09/23/20 08:00 98.3 96 19 175/144 (154) 98 96 09/23/20 04:00 98.4 96 19 153/84 (107) 98 96 09/23/20 00:00 96.9 94 18 176/89 (118) 98 94 09/22/20 21:35 97.5 92 18 150/86 (107) 98 09/22/20 21:33 Room Air 09/22/20 20:00 97.5 78 20 150/77 (101) 98 78 Intake and Output 09/22/20 09/23/20 19:00 07:00 Intake Total 480 ml Balance 480 ml Intake Oral 480 ml # Voids 3 Laboratory Tests 09/23/20 18:47: POC Whole Blood Glucose 69L Height (Feet): 5 Height (Inches): 9.00 Weight (Pounds): 190 Objective WDWN NAD clear breath sounds bilaterally without rhonchi or wheeze [id number] without MRG NABS nontender no HSM no CC noted right knee swelling and leg edema nonfocal Assessment/Plan Assessment/Plan: Assessment ESRD possible septic knee- GNR + ho TKR hypertension ho CAD and CABG hypertension Plan care reviewed/ transfer to [facility] if able for higher level of care called transfer center for bed; they are currently full venous US negative awaiting final aspiration results- proteus awaiting Ortho ID noted continue meds and monitor blood sugars follow up on culture results close follow up impression, plan, and exam edited and reviewed in detail care discussed with Lazaro Marcelo MD Sep 23, 2020 18:55
[2020-09-23] MEDS: Atorvastatin 80mg tab ORAL SCH (21:42)
[2020-09-24] VITALS (12 sets, daily range): BP systolic 137–159; BP diastolic 75–127
[2020-09-24] MEDS: NovoLOG Insulin Flexpen SUBQ SCH ×4 (05:26→20:58)
--- NOTE | 2020-09-24 06:36 | General Progress Note ---
Subjective Allergies: Coded Allergies: No Known Allergies (Verified , 02/16/18) Subjective care noted/ had slip but no injuries cultures growing and sensitivities reviewed ID noted events reviewed still no bed at [facility] nontoxic and alert Objective Last 24 Hour Vital Signs Date Time Temp Pulse Resp B/P (MAP) Pulse Ox O2 Delivery O2 Flow Rate FiO2 09/24/20 01:45 97.4 92 09/24/20 00:27 97.4 92 09/24/20 00:00 98.4 94 17 150/84 (106) 92 87 09/23/20 21:00 98.6 93 09/23/20 21:00 Room Air 09/23/20 20:27 97.9 92 09/23/20 20:00 98.6 93 18 148/87 (107) 94 89 09/23/20 19:27 96.7 92 09/23/20 18:58 97.3 92 09/23/20 17:29 94 117/87 09/23/20 16:46 97.6 09/23/20 16:00 97.6 94 19 117/87 (97) 97 94 09/23/20 12:00 97.6 93 18 179/53 (95) 96 93 09/23/20 09:30 96 175/144 09/23/20 09:00 Room Air 09/23/20 08:00 98.3 96 19 175/144 (154) 98 96 Intake and Output 09/23/20 09/24/20 19:00 07:00 Intake Total 900 ml Balance 900 ml Other 900 ml Laboratory Tests 09/23/20 18:47: POC Whole Blood Glucose 69L 09/23/20 21:45: POC Whole Blood Glucose 72L 09/24/20 05:18: POC Whole Blood Glucose 99 Height (Feet): 5 Height (Inches): 9.00 Weight (Pounds): 190 Objective WDWN NAD clear breath sounds bilaterally without rhonchi or wheeze [id number] without MRG NABS nontender no HSM no CC noted right knee swelling and leg edema better RUE edema nonfocal Assessment/Plan Assessment/Plan: Assessment ESRD possible septic knee- GNR + ho TKR hypertension ho CAD and CABG hypertension Asthma RUE edema Plan venous US of RUE care reviewed/ transfer to [facility] if able for higher level of care called transfer center for bed; they are currently full venous US negative awaiting final aspiration results- proteus awaiting Ortho ID noted continue meds and monitor blood sugars follow up on culture results close follow up impression, plan, and exam edited and reviewed in detail care discussed with Lazaro Marcelo MD Sep 24, 2020 06:36
[2020-09-24] MEDS: Vitamin D 1000 units Tab ORAL SCH (08:22)
[2020-09-24] MEDS: sitaGLIPtin 25mg tab ORAL SCH (08:23)
[2020-09-24] MEDS: Aspirin EC 81mg tab ORAL SCH (08:23)
[2020-09-24] MEDS: Heparin 5000 units/ml inj SUBQ SCH ×3 (08:24→20:59)
--- NOTE | 2020-09-24 08:58 | Diagnostic Imaging Report ---
EXAM: CT Head Without Intravenous Contrast CLINICAL HISTORY: FALL TECHNIQUE: Axial computed tomography images of the head/brain without intravenous contrast. CTDI is 53 mGy and DLP is 1045 mGy-cm. One or more of the following dose reduction techniques were used: automated exposure control, adjustment of the mA and/or kV according to patient size, use of iterative reconstruction technique. COMPARISON: No relevant prior studies available. FINDINGS: Brain: Unremarkable. No hemorrhage. No significant white matter disease. No edema. Ventricles: Unremarkable. No ventriculomegaly. Bones/joints: Unremarkable. No acute fracture. Soft tissues: Unremarkable. Sinuses: Unremarkable as visualized. No acute sinusitis. Mastoid air cells: Unremarkable as visualized. No mastoid effusion. IMPRESSION: No evidence of acute intracranial process. Paranasal sinuses and mastoids are clear.
--- NOTE | 2020-09-24 08:59 | Diagnostic Imaging Report ---
EXAM: XR Left Shoulder Complete, 2 or More Views CLINICAL HISTORY: FALL TECHNIQUE: Two or more views of the left shoulder. COMPARISON: No relevant prior studies available. FINDINGS: Bones/joints: Unremarkable. No acute fracture. No dislocation. Soft tissues: Unremarkable. IMPRESSION: Normal left shoulder x-rays.
--- NOTE | 2020-09-24 09:00 | Diagnostic Imaging Report ---
EXAM: XR Left Hip With Pelvis When Performed, 2 or 3 Views CLINICAL HISTORY: FALL TECHNIQUE: Two or three views of the left hip with pelvis when performed. COMPARISON: No relevant prior studies available. FINDINGS: Bones/joints: Unremarkable. No acute fracture. No dislocation. Soft tissues: Unremarkable. IMPRESSION: Normal left hip x-rays.
[2020-09-24] MEDS: Levemir Flexpen SUBQ SCH ×2 (10:16→20:58)
--- NOTE | 2020-09-24 11:26 | Diagnostic Imaging Report ---
EXAM: US Duplex Right Upper Extremity Veins CLINICAL HISTORY: DVT TECHNIQUE: Real-time duplex ultrasound scan of the right upper extremity veins integrating B-mode two-dimensional vascular structure, Doppler spectral analysis, color flow Doppler imaging and compression. COMPARISON: Upper extremity venous Doppler ultrasound on 02/09/2018 FINDINGS: Deep veins: Thrombus noted in the right internal jugular vein. Thrombus noted in the proximal right subclavian vein. Superficial veins: Unremarkable. No thrombus in the visualized basilic and cephalic veins. Soft tissues: Soft tissue edema. IMPRESSION: 1. Thrombus noted in the right internal jugular vein. 2. Thrombus noted in the proximal right subclavian vein.
--- NOTE | 2020-09-24 15:52 | Infectious Diseases Prog Note ---
Assessment/Plan Assessment/Plan A: 1. Right knee arthroplasty infection. 2. Diabetes. 3. Hypertension. 4. Renal failure, on dialysis. 5. DVT of R arm PLAN: 1. Change Rocephin to Gentamicin 3 times a week at HD time 2. Needs 2 step right knee replacement 3. Case was D/W Pharmacy & RN Subjective ROS Limited/Unobtainable: Yes Constitutional: Reports: no symptoms Respiratory: Reports: no symptoms Gastrointestinal/Abdominal: Reports: no symptoms Genitourinary: Reports: no symptoms Allergies: Coded Allergies: No Known Allergies (Verified , 02/16/18) Objective Last 24 Hour Vital Signs Date Time Temp Pulse Resp B/P (MAP) Pulse Ox O2 Delivery O2 Flow Rate FiO2 09/24/20 12:27 98.0 96 09/24/20 12:00 97.7 96 16 159/75 (103) 95 96 09/24/20 09:00 Room Air 09/24/20 08:27 98.0 96 09/24/20 08:23 97 157/127 09/24/20 08:00 98.0 97 16 157/127 (137) 94 97 09/24/20 04:27 98.9 97 09/24/20 01:45 97.4 92 09/24/20 00:27 97.4 92 09/24/20 00:00 98.4 94 17 150/84 (106) 92 87 09/23/20 21:00 98.6 93 09/23/20 21:00 Room Air 09/23/20 20:27 97.9 92 09/23/20 20:00 98.6 93 18 148/87 (107) 94 89 09/23/20 19:27 96.7 92 09/23/20 18:58 97.3 92 09/23/20 17:29 94 117/87 09/23/20 16:46 97.6 09/23/20 16:00 97.6 94 19 117/87 (97) 97 94 Height (Feet): 5 Height (Inches): 9.00 Weight (Pounds): 190 HEENT: mucous membranes moist Respiratory/Chest: lungs clear Cardiovascular: normal rate Abdomen: soft, non tender Extremities: other - legs edema Neurologic/Psychiatric: abnormal gait, alert, responsive Laboratory Tests Test 09/23/20 18:47 09/23/20 21:45 09/24/20 05:18 POC Whole Blood Glucose 69 MG/DL (74-106) L 72 MG/DL (74-106) L 99 MG/DL (74-106) Current Medications Medications (Trade) Dose Ordered Sig/Marcelo Route PRN Reason Start Time Stop Time Status Last Admin Dose Admin Acetaminophen (Tylenol) 650 mg Q4H PRN ORAL Mild Pain (Pain Scale 1-3) 09/14/20 22:15 10/14/20 22:14 09/23/20 16:16 Aspirin (Ecotrin) 81 mg DAILY ORAL 09/15/20 09:00 10/30/20 08:59 09/24/20 08:23 Atorvastatin Calcium (Lipitor) 80 mg BEDTIME ORAL 09/15/20 21:00 12/14/20 20:59 09/23/20 21:42 Calcium Acetate (Phoslo) 667 mg DAILY ORAL 09/15/20 09:00 12/14/20 08:59 09/24/20 08:22 Carvedilol (Coreg) 3.125 mg BID ORAL 09/15/20 09:00 10/15/20 08:59 09/24/20 08:23 Ceftriaxone Sodium 2 gm/ Dextrose 55 ml @ 110 mls/hr Q24H IVPB 09/19/20 13:00 09/26/20 12:59 09/23/20 15:21 Dextrose (Dextrose 50%) 25 ml Q30M PRN IV Hypoglycemia 09/14/20 22:15 12/13/20 22:14 Dextrose (Dextrose 50%) 50 ml Q30M PRN IV Hypoglycemia 09/14/20 22:15 12/13/20 22:14 Famotidine (Pepcid) 20 mg DAILY ORAL 09/15/20 09:00 12/14/20 08:59 09/24/20 08:23 Gabapentin (Neurontin) 300 mg BID ORAL 09/15/20 09:00 10/15/20 08:59 09/24/20 08:23 Heparin Sodium (Porcine) (Heparin 5000 units/ml) 5,000 units EVERY 12 HOURS SUBQ 09/15/20 21:00 10/30/20 20:59 09/21/20 22:48 Insulin Aspart (NovoLOG) BEFORE MEALS AND HS SUBQ 09/15/20 06:30 12/14/20 06:29 09/22/20 06:45 Insulin Detemir (Levemir) 6 units Q24H SUBQ 09/18/20 10:00 12/17/20 09:59 09/24/20 10:16 Insulin Detemir (Levemir) 12 units QHS SUBQ 09/18/20 21:00 12/17/20 20:59 09/20/20 20:41 Pantoprazole (Protonix) 40 mg DAILY ORAL 09/15/20 09:00 10/15/20 08:59 09/24/20 08:23 Sitagliptin Phosphate (Januvia) 25 mg DAILY ORAL 09/15/20 09:00 10/15/20 08:59 09/24/20 08:23 Vitamin D (Vitamin D) 2,000 unit DAILY ORAL 09/21/20 09:30 10/21/20 09:29 09/24/20 08:22 Saurav Martinez MD Sep 24, 2020 15:52
[2020-09-24] MEDS: cefTRIAXone 2 GM in D5W 55 ML IVPB SCH (16:08)
--- NOTE | 2020-09-24 17:57 | Nephrology Progress Note ---
Assessment/Plan Problem List: (1) Insulin dependent diabetes mellitus (2) Septic arthritis (3) ESRD (end stage renal disease) on dialysis (4) Infection of right knee Plan dialysis 09/23, continue iv antibiotics, add amlodipine for bp Subjective Constitutional: Reports: weakness HEENT: Reports: no symptoms Genitourinary: Reports: no symptoms Neurologic/Psychiatric: Reports: no symptoms Subjective mod r knee pain Objective Objective Last 24 Hour Vital Signs Date Time Temp Pulse Resp B/P (MAP) Pulse Ox O2 Delivery O2 Flow Rate FiO2 09/24/20 17:31 92 144/110 09/24/20 16:27 97.5 92 09/24/20 16:00 97.5 92 18 144/110 (121) 94 92 09/24/20 12:27 98.0 96 09/24/20 12:00 97.7 96 16 159/75 (103) 95 96 09/24/20 09:00 Room Air 09/24/20 08:27 98.0 96 09/24/20 08:23 97 157/127 09/24/20 08:00 98.0 97 16 157/127 (137) 94 97 09/24/20 04:27 98.9 97 09/24/20 01:45 97.4 92 09/24/20 00:27 97.4 92 09/24/20 00:00 98.4 94 17 150/84 (106) 92 87 09/23/20 21:00 98.6 93 09/23/20 21:00 Room Air 09/23/20 20:27 97.9 92 09/23/20 20:00 98.6 93 18 148/87 (107) 94 89 09/23/20 19:27 96.7 92 09/23/20 18:58 97.3 92 Intake and Output 09/23/20 09/24/20 19:00 07:00 Intake Total 900 ml 420 ml Balance 900 ml 420 ml Intake Oral 420 ml Other 900 ml # Voids 2 Laboratory Tests 09/23/20 18:47: POC Whole Blood Glucose 69L 09/23/20 21:45: POC Whole Blood Glucose 72L 09/24/20 05:18: POC Whole Blood Glucose 99 Height (Feet): 5 Height (Inches): 9.00 Weight (Pounds): 190 General Appearance: no apparent distress, alert EENT: normal ENT inspection Neck: normal alignment Cardiovascular: regular rhythm Respiratory/Chest: lungs clear Abdomen: no organomegaly Extremities: other - r knee swollen 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
[2020-09-24] MEDS: Atorvastatin 80mg tab ORAL SCH ×2 (20:54→20:59)
[2020-09-25] VITALS: BP 160/94
[2020-09-25 04:00] VITALS: BP 159/94
[2020-09-25] MEDS: NovoLOG Insulin Flexpen SUBQ SCH ×4 (06:30→21:00)
[2020-09-25 08:00] VITALS: BP 156/80
[2020-09-25] MEDS: sitaGLIPtin 25mg tab ORAL SCH (09:39)
[2020-09-25] MEDS: Aspirin EC 81mg tab ORAL SCH (09:39)
[2020-09-25] MEDS: Vitamin D 1000 units Tab ORAL SCH (09:40)
[2020-09-25] MEDS: Heparin 5000 units/ml inj SUBQ SCH ×2 (09:41→21:21)
[2020-09-25] MEDS: Levemir Flexpen SUBQ SCH ×2 (09:42→21:00)
[2020-09-25 12:00] VITALS: BP 139/78
--- NOTE | 2020-09-25 12:01 | Infectious Diseases Prog Note ---
Assessment/Plan Assessment/Plan antibiotics : gentamicin iv A 1. Right knee arthroplasty infection with proteus 2. Diabetes. 3. Hypertension. 4. Renal failure, on dialysis. P 1. continue ceftriaxone 2. plan per surgery Subjective ROS Limited/Unobtainable: Yes Allergies: Coded Allergies: No Known Allergies (Verified , 02/16/18) Objective Last 24 Hour Vital Signs Date Time Temp Pulse Resp B/P (MAP) Pulse Ox O2 Delivery O2 Flow Rate FiO2 09/25/20 09:40 84 156/80 09/25/20 09:39 84 156/80 09/25/20 09:00 Room Air 09/25/20 08:00 98.4 84 16 156/80 (105) 92 84 09/25/20 04:00 97.3 88 20 159/94 (115) 92 09/25/20 04:00 97.3 88 20 159/94 (115) 92 88 09/25/20 02:15 Room Air 09/25/20 00:00 97.7 90 20 160/94 (116) 94 90 09/24/20 21:00 Room Air 09/24/20 20:27 97.0 95 09/24/20 20:00 97.0 91 20 137/86 (103) 95 91 09/24/20 18:18 92 144/110 09/24/20 17:31 92 144/110 09/24/20 16:27 97.5 92 09/24/20 16:00 97.5 92 18 144/110 (121) 94 92 09/24/20 12:27 98.0 96 09/24/20 12:00 97.7 96 16 159/75 (103) 95 96 Height (Feet): 5 Height (Inches): 9.00 Weight (Pounds): 190 Current Medications Medications (Trade) Dose Ordered Sig/Marcelo Route PRN Reason Start Time Stop Time Status Last Admin Dose Admin Acetaminophen (Tylenol) 650 mg Q4H PRN ORAL Mild Pain (Pain Scale 1-3) 09/14/20 22:15 10/14/20 22:14 09/23/20 16:16 Amlodipine Besylate (Norvasc) 5 mg DAILY ORAL 09/24/20 18:00 10/24/20 17:59 09/25/20 09:40 Aspirin (Ecotrin) 81 mg DAILY ORAL 09/15/20 09:00 10/30/20 08:59 09/25/20 09:39 Atorvastatin Calcium (Lipitor) 80 mg BEDTIME ORAL 09/15/20 21:00 12/14/20 20:59 09/23/20 21:42 Calcium Acetate (Phoslo) 667 mg DAILY ORAL 09/15/20 09:00 12/14/20 08:59 09/25/20 09:40 Carvedilol (Coreg) 3.125 mg BID ORAL 09/15/20 09:00 10/15/20 08:59 09/25/20 09:39 Dextrose (Dextrose 50%) 25 ml Q30M PRN IV Hypoglycemia 09/14/20 22:15 12/13/20 22:14 Dextrose (Dextrose 50%) 50 ml Q30M PRN IV Hypoglycemia 09/14/20 22:15 12/13/20 22:14 Famotidine (Pepcid) 20 mg DAILY ORAL 09/15/20 09:00 12/14/20 08:59 09/25/20 09:40 Gabapentin (Neurontin) 300 mg BID ORAL 09/15/20 09:00 10/15/20 08:59 09/25/20 09:39 Gentamicin Sulfate 300 mg/ Sodium Chloride 107.5 ml @ 107.5 mls/ hr POSTHD IVPB 09/25/20 18:00 10/02/20 17:59 Heparin Sodium (Porcine) (Heparin 5000 units/ml) 5,000 units EVERY 12 HOURS SUBQ 09/15/20 21:00 10/30/20 20:59 09/25/20 09:41 Insulin Aspart (NovoLOG) BEFORE MEALS AND HS SUBQ 09/15/20 06:30 12/14/20 06:29 09/22/20 06:45 Insulin Detemir (Levemir) 6 units Q24H SUBQ 09/18/20 10:00 12/17/20 09:59 09/24/20 10:16 Insulin Detemir (Levemir) 12 units QHS SUBQ 09/18/20 21:00 12/17/20 20:59 09/20/20 20:41 Pantoprazole (Protonix) 40 mg DAILY ORAL 09/15/20 09:00 10/15/20 08:59 09/25/20 09:40 Sitagliptin Phosphate (Januvia) 25 mg DAILY ORAL 09/15/20 09:00 10/15/20 08:59 09/25/20 09:39 Vitamin D (Vitamin D) 2,000 unit DAILY ORAL 09/21/20 09:30 10/21/20 09:29 09/25/20 09:40 Chuck Salas MD Sep 25, 2020 12:01
--- NOTE | 2020-09-25 13:42 | Nephrology Progress Note ---
Assessment/Plan Plan Septic Rt. Knee - IV Abx. Per Dr. Franks. ESRD - HD TTS. Not On transfer list for [facility] Isolated "R/O Covid 19 Subjective Subjective c/o Rt. Knee pain Objective Objective Last 24 Hour Vital Signs Date Time Temp Pulse Resp B/P (MAP) Pulse Ox O2 Delivery O2 Flow Rate FiO2 09/25/20 12:00 97.9 81 16 139/78 (98) 96 81 09/25/20 09:40 84 156/80 09/25/20 09:39 84 156/80 09/25/20 09:00 Room Air 09/25/20 08:00 98.4 84 16 156/80 (105) 92 84 09/25/20 04:00 97.3 88 20 159/94 (115) 92 09/25/20 04:00 97.3 88 20 159/94 (115) 92 88 09/25/20 02:15 Room Air 09/25/20 00:00 97.7 90 20 160/94 (116) 94 90 09/24/20 21:00 Room Air 09/24/20 20:27 97.0 95 09/24/20 20:00 97.0 91 20 137/86 (103) 95 91 09/24/20 18:18 92 144/110 09/24/20 17:31 92 144/110 09/24/20 16:27 97.5 92 09/24/20 16:00 97.5 92 18 144/110 (121) 94 92 Intake and Output 09/24/20 09/25/20 19:00 07:00 Intake Total 1200 ml Balance 1200 ml Other 1200 ml # Voids 1 Height (Feet): 5 Height (Inches): 9.00 Weight (Pounds): 190 Objective Poor vision CV RR lungs CTA Abd SNT. BS + E Rt Knee tender. Dressed. MAXIMINO AVF + bruit Kelley Bran MD Sep 25, 2020 13:42
[2020-09-25 16:00] VITALS: BP 152/86
--- NOTE | 2020-09-25 18:52 | Pulmonology Progress Note ---
Subjective ROS Limited/Unobtainable: Yes Constitutional: Reports: no symptoms Gastrointestinal/Abdominal: Reports: no symptoms Musculoskeletal: Denies: pain Allergies: Coded Allergies: No Known Allergies (Verified , 02/16/18) Objective Last 24 Hour Vital Signs Date Time Temp Pulse Resp B/P (MAP) Pulse Ox O2 Delivery O2 Flow Rate FiO2 09/25/20 17:54 78 152/86 09/25/20 16:00 98.0 78 16 152/86 (108) 96 78 09/25/20 12:00 97.9 81 16 139/78 (98) 96 81 09/25/20 09:40 84 156/80 09/25/20 09:39 84 156/80 09/25/20 09:00 Room Air 09/25/20 08:00 98.4 84 16 156/80 (105) 92 84 09/25/20 04:00 97.3 88 20 159/94 (115) 92 09/25/20 04:00 97.3 88 20 159/94 (115) 92 88 09/25/20 02:15 Room Air 09/25/20 00:00 97.7 90 20 160/94 (116) 94 90 09/24/20 21:00 Room Air 09/24/20 20:27 97.0 95 09/24/20 20:00 97.0 91 20 137/86 (103) 95 91 Intake and Output 09/24/20 09/25/20 19:00 07:00 Intake Total 1200 ml Balance 1200 ml Other 1200 ml # Voids 1 Current Medications Medications (Trade) Dose Ordered Sig/Marcelo Route PRN Reason Start Time Stop Time Status Last Admin Dose Admin Acetaminophen (Tylenol) 650 mg Q4H PRN ORAL Mild Pain (Pain Scale 1-3) 09/14/20 22:15 10/14/20 22:14 09/23/20 16:16 Amlodipine Besylate (Norvasc) 5 mg DAILY ORAL 09/24/20 18:00 10/24/20 17:59 09/25/20 09:40 Aspirin (Ecotrin) 81 mg DAILY ORAL 09/15/20 09:00 10/30/20 08:59 09/25/20 09:39 Atorvastatin Calcium (Lipitor) 80 mg BEDTIME ORAL 09/15/20 21:00 12/14/20 20:59 09/23/20 21:42 Calcium Acetate (Phoslo) 667 mg DAILY ORAL 09/15/20 09:00 12/14/20 08:59 09/25/20 09:40 Carvedilol (Coreg) 3.125 mg BID ORAL 09/15/20 09:00 10/15/20 08:59 09/25/20 17:54 Dextrose (Dextrose 50%) 25 ml Q30M PRN IV Hypoglycemia 09/14/20 22:15 12/13/20 22:14 Dextrose (Dextrose 50%) 50 ml Q30M PRN IV Hypoglycemia 09/14/20 22:15 12/13/20 22:14 Famotidine (Pepcid) 20 mg DAILY ORAL 09/15/20 09:00 12/14/20 08:59 09/25/20 09:40 Gabapentin (Neurontin) 300 mg BID ORAL 09/15/20 09:00 10/15/20 08:59 09/25/20 17:54 Gentamicin Sulfate 100 mg/ Sodium Chloride 102.5 ml @ 102.5 mls/ hr POSTHD IVPB 09/26/20 15:00 10/03/20 14:59 Heparin Sodium (Porcine) (Heparin 5000 units/ml) 5,000 units EVERY 12 HOURS SUBQ 09/15/20 21:00 10/30/20 20:59 09/25/20 09:41 Heparin Sodium (Porcine) (Heparin Sod 1000 units/ml 10ml) 2,000 unit ONCE PRN IV hd 09/26/20 06:00 09/26/20 23:59 Insulin Aspart (NovoLOG) BEFORE MEALS AND HS SUBQ 09/15/20 06:30 12/14/20 06:29 09/22/20 06:45 Insulin Detemir (Levemir) 6 units Q24H SUBQ 09/18/20 10:00 12/17/20 09:59 09/24/20 10:16 Insulin Detemir (Levemir) 12 units QHS SUBQ 09/18/20 21:00 12/17/20 20:59 09/20/20 20:41 Pantoprazole (Protonix) 40 mg DAILY ORAL 09/15/20 09:00 10/15/20 08:59 09/25/20 09:40 Sitagliptin Phosphate (Januvia) 25 mg DAILY ORAL 09/15/20 09:00 10/15/20 08:59 09/25/20 09:39 Sodium Chloride 1,000 ml @ 500 mls/hr Q2H PRN IVLG sbp<90 during hd 09/26/20 06:00 09/26/20 23:59 Vitamin D (Vitamin D) 2,000 unit DAILY ORAL 09/21/20 09:30 10/21/20 09:29 09/25/20 09:40 Assessment/Plan Assessment/Plan Pulmonary Progress Note Patient is a 69 Years Old male admitted with right knee swelling and pain with drainage. On IV AB/ID patient care discussed in detail. all acute issues reviewed in detail. patient medications reviewed. Medications noted: Current Allergies: No known allergies Past Medical History CAD Sleep Apnea hypertension hyperlipidemia type II diabetes arthritis diabetic retinopathy Glaucoma diabetic nepropathy PVD Asthma chronic renal failure- on dialysis Hospitalized due to having Hypertension Heart attack 05/2018 Surgical History: eyes cataract surgery both eyes multiple right eye surgery with 2 lenses placed and 2 glaucoma surgeries cornea replacement knee replacement 01/08/17 AV shunt left UE 2017 Double cardiac bypass surgery 05/2018 HD port in chest 01/2020 Stent placement Objective WDWN NAD clear breath sounds bilaterally without rhonchi or wheeze [id number] without MRG NABS nontender no HSM no CC noted right knee swelling and leg edema better RUE edema nonfocal Labs: noted Assessment/Plan Assessment/Plan: Assessment ESRD possible septic knee- GNR + ho TKR hypertension ho CAD and CABG hypertension Asthma RUE edema Plan care reviewed/ transfer to [facility] if able for higher level of care called transfer center for bed; they are currently full venous US negative awaiting final aspiration results- proteus awaiting Ortho ID noted continue meds and monitor blood sugars follow up on culture results close follow up impression, plan, and exam edited and reviewed in detail care discussed with Best Villafana MD Sep 25, 2020 18:52
[2020-09-25 20:00] VITALS: BP 144/89
[2020-09-25] MEDS: Atorvastatin 80mg tab ORAL SCH (21:21)
[2020-09-26] VITALS: BP 159/86
[2020-09-26 04:00] VITALS: BP 159/86
[2020-09-26] MEDS ORDERED: Heparin Sod 1000 units/ml 10ml IV PRN (06:00)
[2020-09-26] MEDS: NovoLOG Insulin Flexpen SUBQ SCH ×4 (06:26→20:48)
[2020-09-26 08:00] VITALS: BP 143/77
[2020-09-26] MEDS: sitaGLIPtin 25mg tab ORAL SCH (09:01)
[2020-09-26] MEDS: Vitamin D 1000 units Tab ORAL SCH (09:01)
[2020-09-26] MEDS: Aspirin EC 81mg tab ORAL SCH (09:01)
[2020-09-26] MEDS: Levemir Flexpen SUBQ SCH ×2 (09:19→20:48)
[2020-09-26] MEDS: Heparin 5000 units/ml inj SUBQ SCH ×2 (09:20→20:47)
[2020-09-26 10:24] LABS: BASOPHILS % (AUTO) 1.1 % (0.0-2.0); EOSINOPHILS % (AUTO) 0.6 % (0.0-3.0); HEMATOCRIT 27.3 % (42.0-52.0); HEMOGLOBIN 8.8 G/DL (14.2-18.0); LYMPHOCYTES % (AUTO) 12.5 % (20.0-45.0); MEAN CORPUSCULAR VOLUME 91 FL (80-99); MONOCYTES % (AUTO) 14.3 % (1.0-10.0); NEUTROPHILS % (AUTO) 71.5 % (45.0-75.0); PLATELET COUNT 116 K/UL (150-450); RED BLOOD COUNT 2.99 M/UL (4.70-6.10); RED CELL DISTRIBUTION WIDTH 17.7 % (11.6-14.8); WHITE BLOOD COUNT 4.5 K/UL (4.8-10.8)
[2020-09-26 10:56] LABS: CREATININE 7.1 MG/DL (0.55-1.30); POTASSIUM 6.4 MMOL/L (3.5-5.1)
--- NOTE | 2020-09-26 11:33 | Infectious Diseases Prog Note ---
Assessment/Plan Assessment/Plan A: 1. Right knee arthroplasty infection. 2. Diabetes. 3. Hypertension. 4. Renal failure, on dialysis. 5. DVT of R arm 6. Exposure to COVID19 patient PLAN: 1. Continue Gentamicin 3 times a week after HD 2. Needs 2 step right knee replacement Subjective ROS Limited/Unobtainable: Yes Neurologic: Reports: confusion, other - on restraint Allergies: Coded Allergies: No Known Allergies (Verified , 02/16/18) Objective Last 24 Hour Vital Signs Date Time Temp Pulse Resp B/P (MAP) Pulse Ox O2 Delivery O2 Flow Rate FiO2 09/26/20 09:01 78 143/77 09/26/20 09:01 78 143/77 09/26/20 09:00 Nasal Cannula 2.0 09/26/20 08:00 97.2 78 19 143/77 (99) 97 09/26/20 04:00 97.3 85 17 159/86 (110) 98 09/25/20 21:00 Nasal Cannula 2.0 09/25/20 20:00 97.5 85 16 144/89 (107) 91 09/25/20 17:54 78 152/86 09/25/20 16:00 98.0 78 16 152/86 (108) 96 78 09/25/20 12:00 97.9 81 16 139/78 (98) 96 81 Height (Feet): 5 Height (Inches): 9.00 Weight (Pounds): 190 HEENT: mucous membranes moist Respiratory/Chest: no respiratory distress Cardiovascular: normal rate Abdomen: soft, non tender Extremities: other - legs edema, R knee effusion Neurologic/Psychiatric: other - sleeping Laboratory Tests Test 09/25/20 21:19 09/26/20 06:23 09/26/20 08:55 09/26/20 11:02 POC Whole Blood Glucose 114 MG/DL (74-106) H 112 MG/DL (74-106) H 100 MG/DL (74-106) White Blood Count 4.5 K/UL (4.8-10.8) L Red Blood Count 2.99 M/UL (4.70-6.10) L Hemoglobin 8.8 G/DL (14.2-18.0) L Hematocrit 27.3 % (42.0-52.0) L Mean Corpuscular Volume 91 FL (80-99) Mean Corpuscular Hemoglobin 29.5 PG (27.0-31.0) Mean Corpuscular Hemoglobin Concent 32.3 G/DL (32.0-36.0) Red Cell Distribution Width 17.7 % (11.6-14.8) H Platelet Count 116 K/UL (150-450) L Mean Platelet Volume 7.7 FL (6.5-10.1) Neutrophils (%) (Auto) 71.5 % (45.0-75.0) Lymphocytes (%) (Auto) 12.5 % (20.0-45.0) L Monocytes (%) (Auto) 14.3 % (1.0-10.0) H Eosinophils (%) (Auto) 0.6 % (0.0-3.0) Basophils (%) (Auto) 1.1 % (0.0-2.0) Sodium Level 135 MMOL/L (136-145) L Potassium Level 6.4 MMOL/L (3.5-5.1) *H Chloride Level 103 MMOL/L (98-107) Carbon Dioxide Level 24 MMOL/L (21-32) Anion Gap 9 mmol/L (5-15) Blood Urea Nitrogen 58 mg/dL (7-18) H Creatinine 7.1 MG/DL (0.55-1.30) H Estimat Glomerular Filtration Rate 9.3 mL/min (>60) Glucose Level 99 MG/DL (74-106) Calcium Level 8.0 MG/DL (8.5-10.1) L Current Medications Medications (Trade) Dose Ordered Sig/Marcelo Route PRN Reason Start Time Stop Time Status Last Admin Dose Admin Acetaminophen (Tylenol) 650 mg Q4H PRN ORAL Mild Pain (Pain Scale 1-3) 09/14/20 22:15 10/14/20 22:14 09/23/20 16:16 Amlodipine Besylate (Norvasc) 5 mg DAILY ORAL 09/24/20 18:00 10/24/20 17:59 09/26/20 09:01 Aspirin (Ecotrin) 81 mg DAILY ORAL 09/15/20 09:00 10/30/20 08:59 09/26/20 09:01 Atorvastatin Calcium (Lipitor) 80 mg BEDTIME ORAL 09/15/20 21:00 12/14/20 20:59 09/25/20 21:21 Calcium Acetate (Phoslo) 667 mg DAILY ORAL 09/15/20 09:00 12/14/20 08:59 09/26/20 09:01 Carvedilol (Coreg) 3.125 mg BID ORAL 09/15/20 09:00 10/15/20 08:59 09/26/20 09:01 Dextrose (Dextrose 50%) 25 ml Q30M PRN IV Hypoglycemia 09/14/20 22:15 12/13/20 22:14 Dextrose (Dextrose 50%) 50 ml Q30M PRN IV Hypoglycemia 09/14/20 22:15 12/13/20 22:14 Famotidine (Pepcid) 20 mg DAILY ORAL 09/15/20 09:00 12/14/20 08:59 09/26/20 09:00 Gabapentin (Neurontin) 300 mg BID ORAL 09/15/20 09:00 10/15/20 08:59 09/26/20 09:00 Gentamicin Sulfate 100 mg/ Sodium Chloride 102.5 ml @ 102.5 mls/ hr POSTHD IVPB 09/26/20 15:00 10/03/20 14:59 Heparin Sodium (Porcine) (Heparin 5000 units/ml) 5,000 units EVERY 12 HOURS SUBQ 09/15/20 21:00 10/30/20 20:59 09/26/20 09:20 Heparin Sodium (Porcine) (Heparin Sod 1000 units/ml 10ml) 2,000 unit ONCE PRN IV hd 09/26/20 06:00 09/26/20 23:59 09/26/20 10:49 Insulin Aspart (NovoLOG) BEFORE MEALS AND HS SUBQ 09/15/20 06:30 12/14/20 06:29 09/22/20 06:45 Insulin Detemir (Levemir) 6 units Q24H SUBQ 09/18/20 10:00 12/17/20 09:59 09/26/20 09:19 Insulin Detemir (Levemir) 12 units QHS SUBQ 09/18/20 21:00 12/17/20 20:59 09/20/20 20:41 Pantoprazole (Protonix) 40 mg DAILY ORAL 09/15/20 09:00 10/15/20 08:59 09/26/20 09:01 Sitagliptin Phosphate (Januvia) 25 mg DAILY ORAL 09/15/20 09:00 10/15/20 08:59 09/26/20 09:01 Sodium Chloride 1,000 ml @ 500 mls/hr Q2H PRN IVLG sbp<90 during hd 09/26/20 06:00 09/26/20 23:59 Vitamin D (Vitamin D) 2,000 unit DAILY ORAL 09/21/20 09:30 10/21/20 09:29 09/26/20 09:01 Saurav Martinez MD Sep 26, 2020 11:33
[2020-09-26 12:00] VITALS: BP 169/90
--- NOTE | 2020-09-26 13:26 | Nephrology Progress Note ---
Assessment/Plan Plan Septic Rt. Knee - IV Abx. Per Dr. Franks. ESRD - HD TTS. Not On transfer [facility] for [facility] Isolated "R/O Covid 19 Subjective Subjective c/o Rt. Knee pain. On HD now. Stable run. Objective Objective Last 24 Hour Vital Signs Date Time Temp Pulse Resp B/P (MAP) Pulse Ox O2 Delivery O2 Flow Rate FiO2 09/26/20 12:00 98.4 76 19 169/90 (116) 98 09/26/20 09:01 78 143/77 09/26/20 09:01 78 143/77 09/26/20 09:00 Nasal Cannula 2.0 09/26/20 08:00 97.2 78 19 143/77 (99) 97 09/26/20 04:00 97.3 85 17 159/86 (110) 98 09/25/20 21:00 Nasal Cannula 2.0 09/25/20 20:00 97.5 85 16 144/89 (107) 91 09/25/20 17:54 78 152/86 09/25/20 16:00 98.0 78 16 152/86 (108) 96 78 Intake and Output 09/25/20 09/26/20 19:00 07:00 # Voids 1 2 # Bowel Movements 1 Laboratory Tests 09/25/20 21:19: POC Whole Blood Glucose 114H 09/26/20 06:23: POC Whole Blood Glucose 112H 09/26/20 08:55: White Blood Count 4.5L, Red Blood Count 2.99L, Hemoglobin 8.8L, Hematocrit 27.3L , Mean Corpuscular Volume 91, Mean Corpuscular Hemoglobin 29.5, Mean Corpuscular Hemoglobin Concent 32.3, Red Cell Distribution Width 17.7H, Platelet Count 116L, Mean Platelet Volume 7.7, Neutrophils (%) (Auto) 71.5, Lymphocytes (%) (Auto) 12.5L, Monocytes (%) (Auto) 14.3H, Eosinophils (%) (Auto) 0.6, Basophils (%) (Auto) 1.1, Sodium Level 135L, Potassium Level 6.4*H, Chloride Level 103, Carbon Dioxide Level 24, Anion Gap 9, Blood Urea Nitrogen 58H, Creatinine 7.1H, Estimat Glomerular Filtration Rate 9.3, Glucose Level 99, Calcium Level 8.0L 09/26/20 11:02: POC Whole Blood Glucose 100 Height (Feet): 5 Height (Inches): 9.00 Weight (Pounds): 190 Objective Poor vision CV RR lungs CTA Abd SNT. BS + E Rt Knee tender. Dressed. MAXIMINO AVF + Kelley Wilson MD Sep 26, 2020 13:26
[2020-09-26] MEDS: NS IVPB SCH (14:57)
[2020-09-26] MEDS: GENTAMICIN IVPB SCH (14:57)
[2020-09-26 16:00] VITALS: BP 152/56
--- NOTE | 2020-09-26 19:49 | Pulmonology Progress Note ---
Subjective ROS Limited/Unobtainable: Yes Constitutional: Reports: no symptoms Gastrointestinal/Abdominal: Reports: no symptoms Musculoskeletal: Denies: pain Allergies: Coded Allergies: No Known Allergies (Verified , 02/16/18) Objective Last 24 Hour Vital Signs Date Time Temp Pulse Resp B/P (MAP) Pulse Ox O2 Delivery O2 Flow Rate FiO2 09/26/20 17:22 76 152/56 09/26/20 16:00 98.1 81 19 152/56 (88) 98 09/26/20 12:00 98.4 76 19 169/90 (116) 98 09/26/20 09:01 78 143/77 09/26/20 09:01 78 143/77 09/26/20 09:00 Nasal Cannula 2.0 09/26/20 08:00 97.2 78 19 143/77 (99) 97 09/26/20 04:00 97.3 85 17 159/86 (110) 98 09/25/20 21:00 Nasal Cannula 2.0 09/25/20 20:00 97.5 85 16 144/89 (107) 91 Intake and Output 09/25/20 09/26/20 19:00 07:00 # Voids 1 2 # Bowel Movements 1 Laboratory Tests 09/25/20 21:19: POC Whole Blood Glucose 114H 09/26/20 06:23: POC Whole Blood Glucose 112H 09/26/20 08:55: White Blood Count 4.5L, Red Blood Count 2.99L, Hemoglobin 8.8L, Hematocrit 27.3L , Mean Corpuscular Volume 91, Mean Corpuscular Hemoglobin 29.5, Mean Corpuscular Hemoglobin Concent 32.3, Red Cell Distribution Width 17.7H, Platelet Count 116L, Mean Platelet Volume 7.7, Neutrophils (%) (Auto) 71.5, Lymphocytes (%) (Auto) 12.5L, Monocytes (%) (Auto) 14.3H, Eosinophils (%) (Auto) 0.6, Basophils (%) (Auto) 1.1, Sodium Level 135L, Potassium Level 6.4*H, Chloride Level 103, Carbon Dioxide Level 24, Anion Gap 9, Blood Urea Nitrogen 58H, Creatinine 7.1H, Estimat Glomerular Filtration Rate 9.3, Glucose Level 99, Calcium Level 8.0L 09/26/20 11:02: POC Whole Blood Glucose 100 12/22/20 17:24: POC Whole Blood Glucose 47L 09/26/20 17:26: POC Whole Blood Glucose 47L 09/26/20 17:51: POC Whole Blood Glucose 73L Current Medications Medications (Trade) Dose Ordered Sig/Marcelo Route PRN Reason Start Time Stop Time Status Last Admin Dose Admin Acetaminophen (Tylenol) 650 mg Q4H PRN ORAL Mild Pain (Pain Scale 1-3) 09/14/20 22:15 10/14/20 22:14 09/23/20 16:16 Amlodipine Besylate (Norvasc) 5 mg DAILY ORAL 09/24/20 18:00 10/24/20 17:59 09/26/20 09:01 Aspirin (Ecotrin) 81 mg DAILY ORAL 09/15/20 09:00 10/30/20 08:59 09/26/20 09:01 Atorvastatin Calcium (Lipitor) 80 mg BEDTIME ORAL 09/15/20 21:00 12/14/20 20:59 09/25/20 21:21 Calcium Acetate (Phoslo) 667 mg DAILY ORAL 09/15/20 09:00 12/14/20 08:59 09/26/20 09:01 Carvedilol (Coreg) 3.125 mg BID ORAL 09/15/20 09:00 10/15/20 08:59 09/26/20 17:22 Dextrose (Dextrose 50%) 25 ml Q30M PRN IV Hypoglycemia 09/14/20 22:15 12/13/20 22:14 Dextrose (Dextrose 50%) 50 ml Q30M PRN IV Hypoglycemia 09/14/20 22:15 12/13/20 22:14 Famotidine (Pepcid) 20 mg DAILY ORAL 09/15/20 09:00 12/14/20 08:59 09/26/20 09:00 Gabapentin (Neurontin) 300 mg BID ORAL 09/15/20 09:00 10/15/20 08:59 09/26/20 17:21 Gentamicin Sulfate 100 mg/ Sodium Chloride 102.5 ml @ 102.5 mls/ hr POSTHD IVPB 09/26/20 15:00 10/03/20 14:59 09/26/20 14:57 Heparin Sodium (Porcine) (Heparin 5000 units/ml) 5,000 units EVERY 12 HOURS SUBQ 09/15/20 21:00 1/25/21 20:59 09/26/20 09:20 Heparin Sodium (Porcine) (Heparin Sod 1000 units/ml 10ml) 2,000 unit ONCE PRN IV hd 09/26/20 06:00 09/26/20 23:59 09/26/20 10:49 Insulin Aspart (NovoLOG) BEFORE MEALS AND HS SUBQ 09/15/20 06:30 12/14/20 06:29 09/22/20 06:45 Insulin Detemir (Levemir) 6 units Q24H SUBQ 09/18/20 10:00 12/17/20 09:59 09/26/20 09:19 Insulin Detemir (Levemir) 12 units QHS SUBQ 09/18/20 21:00 12/17/20 20:59 09/20/20 20:41 Pantoprazole (Protonix) 40 mg DAILY ORAL 09/15/20 09:00 10/15/20 08:59 09/26/20 09:01 Sitagliptin Phosphate (Januvia) 25 mg DAILY ORAL 09/15/20 09:00 10/15/20 08:59 09/26/20 09:01 Sodium Chloride 1,000 ml @ 500 mls/hr Q2H PRN IVLG sbp<90 during hd 09/26/20 06:00 09/26/20 23:59 Vitamin D (Vitamin D) 2,000 unit DAILY ORAL 09/21/20 09:30 10/21/20 09:29 09/26/20 09:01 Assessment/Plan Assessment/Plan Pulmonary Progress Note Patient is a 69 Years Old male admitted with right knee swelling and pain with drainage. On IV AB/ID patient care discussed in detail. all acute issues reviewed in detail. patient medications reviewed. Medications noted: Current Allergies: No known allergies Past Medical History CAD Sleep Apnea hypertension hyperlipidemia type II diabetes arthritis diabetic retinopathy Glaucoma diabetic nepropathy PVD Asthma chronic renal failure- on dialysis Hospitalized due to having Hypertension Heart attack 05/2018 Surgical History: eyes cataract surgery both eyes multiple right eye surgery with 2 lenses placed and 2 glaucoma surgeries cornea replacement knee replacement 01/08/17 AV shunt left UE 2017 Double cardiac bypass surgery 05/2018 HD port in chest 01/2020 Stent placement Insulin reduced Central line ordered Objective WDWN NAD clear breath sounds bilaterally without rhonchi or wheeze [id number] without MRG NABS nontender no HSM no CC noted right knee swelling and leg edema better RUE edema nonfocal Labs: noted Assessment/Plan Assessment/Plan: Assessment ESRD possible septic knee- GNR + ho TKR hypertension ho CAD and CABG hypertension Asthma RUE edema Plan care reviewed/ transfer to [facility] if able for higher level of care venous US negative awaiting final aspiration results- proteus awaiting Ortho ID noted continue meds and monitor blood sugars follow up on culture results close follow up impression, plan, and exam edited and reviewed in detail care discussed with RN Best Gill MD Sep 26, 2020 19:49
[2020-09-26 20:00] VITALS: BP 143/82
[2020-09-26] MEDS: Atorvastatin 80mg tab ORAL SCH (20:47)
[2020-09-27] VITALS (7 sets, daily range): BP systolic 118–149; BP diastolic 63–83
[2020-09-27] MEDS: NovoLOG Insulin Flexpen SUBQ SCH ×4 (06:30→20:38)
--- NOTE | 2020-09-27 08:02 | General Progress Note ---
Subjective ROS Limited/Unobtainable: No Constitutional: Reports: malaise, weakness HEENT: Reports: no symptoms Cardiovascular: Reports: no symptoms Respiratory: Reports: cough Gastrointestinal/Abdominal: Reports: no symptoms Genitourinary: Reports: no symptoms Neurologic/Psychiatric: Reports: no symptoms Endocrine: Reports: no symptoms Hematologic/Lymphatic: Reports: no symptoms Allergies: Coded Allergies: No Known Allergies (Verified , 02/16/18) All Systems: reviewed and negative except above Subjective no complaints. confused. thinks hes in a motel. covid + now. on room air Objective Last 24 Hour Vital Signs Date Time Temp Pulse Resp B/P (MAP) Pulse Ox O2 Delivery O2 Flow Rate FiO2 09/27/20 04:00 97.7 81 21 149/63 (91) 92 09/27/20 00:00 96.9 83 21 144/81 (102) 92 09/26/20 21:00 Nasal Cannula 2.0 09/26/20 20:00 99.8 79 21 143/82 (102) 94 09/26/20 17:22 76 152/56 09/26/20 16:00 98.1 81 19 152/56 (88) 98 09/26/20 12:00 98.4 76 19 169/90 (116) 98 09/26/20 09:01 78 143/77 09/26/20 09:01 78 143/77 09/26/20 09:00 Nasal Cannula 2.0 09/26/20 08:00 97.2 78 19 143/77 (99) 97 Intake and Output 09/26/20 09/27/20 19:00 07:00 Intake Total 600 ml Output Total 2000 ml Balance -2000 ml 600 ml Other 600 ml Hemodialysis UF 2000 ml # Voids 2 Laboratory Tests 09/26/20 08:55: White Blood Count 4.5L, Red Blood Count 2.99L, Hemoglobin 8.8L, Hematocrit 27.3L , Mean Corpuscular Volume 91, Mean Corpuscular Hemoglobin 29.5, Mean Corpuscular Hemoglobin Concent 32.3, Red Cell Distribution Width 17.7H, Platelet Count 116L, Mean Platelet Volume 7.7, Neutrophils (%) (Auto) 71.5, Lymphocytes (%) (Auto) 12.5L, Monocytes (%) (Auto) 14.3H, Eosinophils (%) (Auto) 0.6, Basophils (%) (Auto) 1.1, Sodium Level 135L, Potassium Level 6.4*H, Chloride Level 103, Carbon Dioxide Level 24, Anion Gap 9, Blood Urea Nitrogen 58H, Creatinine 7.1H, Estimat Glomerular Filtration Rate 9.3, Glucose Level 99, Calcium Level 8.0L 09/26/20 11:02: POC Whole Blood Glucose 100 09/26/20 17:24: POC Whole Blood Glucose 47L 09/26/20 17:26: POC Whole Blood Glucose 47L 09/26/20 17:51: POC Whole Blood Glucose 73L 09/26/20 20:28: POC Whole Blood Glucose 104 09/27/20 06:01: POC Whole Blood Glucose 69L 09/27/20 06:33: POC Whole Blood Glucose 91 Height (Feet): 5 Height (Inches): 9.00 Weight (Pounds): 190 General Appearance: WD/WN, alert, confused EENT: PERRL/EOMI Neck: normal alignment Cardiovascular: normal rate, regular rhythm Respiratory/Chest: chest wall non-tender, lungs clear, normal breath sounds, no respiratory distress, no accessory muscle use Abdomen: normal bowel sounds, non tender, soft, no organomegaly Edema: 1+ Arm (L), 1+ Arm (R) Neurologic: alert, responsive Assessment/Plan Problem List: (1) COVID-19 ICD Codes: U07.1 - COVID-19 SNOMED: 815481548 (2) Septic arthritis ICD Codes: M00.9 - Pyogenic arthritis, unspecified SNOMED: 848982212 (3) Insulin dependent diabetes mellitus SNOMED: 73022211 (4) Infection of right knee ICD Codes: M00.9 - Pyogenic arthritis, unspecified SNOMED: 059183517, [id number] (5) right leg infection (6) Diabetes ICD Codes: E11.9 - Type 2 diabetes mellitus without complications SNOMED: 88304216 Status: stable Assessment/Plan: cont current rx iv abx per id ID follow up re: +covid dvt and stress ulcer prophylaxis monitor bs BP rx restrains for safety Aramis Park MD Sep 27, 2020 08:02
[2020-09-27] MEDS: Levemir Flexpen SUBQ SCH ×2 (09:22→20:38)
[2020-09-27] MEDS: Vitamin D 1000 units Tab ORAL SCH (09:49)
[2020-09-27] MEDS: sitaGLIPtin 25mg tab ORAL SCH (09:49)
[2020-09-27] MEDS: Aspirin EC 81mg tab ORAL SCH (09:50)
[2020-09-27] MEDS: Heparin 5000 units/ml inj SUBQ SCH ×2 (09:52→20:36)
--- NOTE | 2020-09-27 12:00 | Infectious Diseases Prog Note ---
Assessment/Plan Assessment/Plan antibiotics : gentamicin iv A 1. Right knee arthroplasty infection with proteus 2. Diabetes. 3. Hypertension. 4. Renal failure, on dialysis. 5. COVID 19 pneumonia P 1. continue gentamicin 2. plan per surgery Subjective Constitutional: Denies: fever, chills Respiratory: Denies: shortness of breath, dry cough Gastrointestinal/Abdominal: Denies: nausea, vomiting, diarrhea Musculoskeletal: Denies: pain Allergies: Coded Allergies: No Known Allergies (Verified , 02/16/18) Objective Last 24 Hour Vital Signs Date Time Temp Pulse Resp B/P (MAP) Pulse Ox O2 Delivery O2 Flow Rate FiO2 09/27/20 09:48 76 130/83 09/27/20 09:47 76 130/83 09/27/20 09:00 97.2 76 20 130/83 (99) 96 09/27/20 04:00 97.7 81 21 149/63 (91) 92 09/27/20 00:00 96.9 83 21 144/81 (102) 92 09/26/20 21:00 Nasal Cannula 2.0 09/26/20 20:00 99.8 79 21 143/82 (102) 94 09/26/20 17:22 76 152/56 09/26/20 16:00 98.1 81 19 152/56 (88) 98 09/26/20 12:00 98.4 76 19 169/90 (116) 98 Height (Feet): 5 Height (Inches): 9.00 Weight (Pounds): 190 Respiratory/Chest: lungs clear Cardiovascular: normal rate, regular rhythm, no gallop/murmur Abdomen: soft, non tender Extremities: no edema, other - right leg wound Microbiology Date/Time Source Procedure Growth Status 09/24/20 17:36 Nasopharynx Coronavirus COVID-19 PCR (JANETH) - Final Complete Laboratory Tests Test 09/26/20 17:24 09/26/20 17:26 09/26/20 17:51 09/26/20 20:28 POC Whole Blood Glucose 47 MG/DL (74-106) L 47 MG/DL (74-106) L 73 MG/DL (74-106) L 104 MG/DL (74-106) Test 09/27/20 06:01 09/27/20 06:33 POC Whole Blood Glucose 69 MG/DL (74-106) L 91 MG/DL (74-106) Current Medications Medications (Trade) Dose Ordered Sig/Marcelo Route PRN Reason Start Time Stop Time Status Last Admin Dose Admin Acetaminophen (Tylenol) 650 mg Q4H PRN ORAL Mild Pain (Pain Scale 1-3) 09/14/20 22:15 10/14/20 22:14 09/23/20 16:16 Amlodipine Besylate (Norvasc) 5 mg DAILY ORAL 09/24/20 18:00 10/24/20 17:59 09/27/20 09:48 Aspirin (Ecotrin) 81 mg DAILY ORAL 09/15/20 09:00 10/30/20 08:59 09/27/20 09:50 Atorvastatin Calcium (Lipitor) 80 mg BEDTIME ORAL 09/15/20 21:00 12/14/20 20:59 09/26/20 20:47 Calcium Acetate (Phoslo) 667 mg DAILY ORAL 09/15/20 09:00 12/14/20 08:59 09/27/20 09:48 Carvedilol (Coreg) 3.125 mg BID ORAL 09/15/20 09:00 10/15/20 08:59 09/27/20 09:47 Dextrose (Dextrose 50%) 25 ml Q30M PRN IV Hypoglycemia 09/14/20 22:15 12/13/20 22:14 Dextrose (Dextrose 50%) 50 ml Q30M PRN IV Hypoglycemia 09/14/20 22:15 12/13/20 22:14 Famotidine (Pepcid) 20 mg DAILY ORAL 09/15/20 09:00 12/14/20 08:59 09/27/20 09:50 Gabapentin (Neurontin) 300 mg BID ORAL 09/15/20 09:00 10/15/20 08:59 09/27/20 09:46 Gentamicin Sulfate 100 mg/ Sodium Chloride 102.5 ml @ 102.5 mls/ hr POSTHD IVPB 09/26/20 15:00 10/03/20 14:59 09/26/20 14:57 Heparin Sodium (Porcine) (Heparin 5000 units/ml) 5,000 units EVERY 12 HOURS SUBQ 09/15/20 21:00 10/30/20 20:59 09/27/20 09:52 Insulin Aspart (NovoLOG) BEFORE MEALS AND HS SUBQ 09/15/20 06:30 12/14/20 06:29 09/22/20 06:45 Insulin Detemir (Levemir) 6 units Q24H SUBQ 09/18/20 10:00 12/17/20 09:59 09/26/20 09:19 Insulin Detemir (Levemir) 12 units QHS SUBQ 09/18/20 21:00 12/17/20 20:59 09/20/20 20:41 Pantoprazole (Protonix) 40 mg DAILY ORAL 09/15/20 09:00 10/15/20 08:59 09/27/20 09:48 Sitagliptin Phosphate (Januvia) 25 mg DAILY ORAL 09/15/20 09:00 10/15/20 08:59 09/27/20 09:49 Vitamin D (Vitamin D) 2,000 unit DAILY ORAL 09/21/20 09:30 10/21/20 09:29 09/27/20 09:49 Chuck Salas MD Sep 27, 2020 12:00
--- NOTE | 2020-09-27 13:15 | Nephrology Progress Note ---
Assessment/Plan Plan Septic Rt. Knee - IV Abx. Per Dr. Franks. ESRD - HD TTS. Subjective Subjective c/o Rt. Knee pain. On HD now. Stable run. Objective Objective Last 24 Hour Vital Signs Date Time Temp Pulse Resp B/P (MAP) Pulse Ox O2 Delivery O2 Flow Rate FiO2 09/27/20 12:00 97.0 73 20 123/70 (87) 96 09/27/20 09:48 76 130/83 09/27/20 09:47 76 130/83 09/27/20 08:00 97.2 76 20 130/83 (99) 96 09/27/20 04:00 97.7 81 21 149/63 (91) 92 09/27/20 00:00 96.9 83 21 144/81 (102) 92 09/26/20 21:00 Nasal Cannula 2.0 09/26/20 20:00 99.8 79 21 143/82 (102) 94 09/26/20 17:22 76 152/56 09/26/20 16:00 98.1 81 19 152/56 (88) 98 Intake and Output 09/26/20 09/27/20 19:00 07:00 Intake Total 600 ml Output Total 2000 ml Balance -2000 ml 600 ml Other 600 ml Hemodialysis UF 2000 ml # Voids 2 Laboratory Tests 09/26/20 17:24: POC Whole Blood Glucose 47L 09/26/20 17:26: POC Whole Blood Glucose 47L 09/26/20 17:51: POC Whole Blood Glucose 73L 09/26/20 20:28: POC Whole Blood Glucose 104 09/27/20 06:01: POC Whole Blood Glucose 69L 09/27/20 06:33: POC Whole Blood Glucose 91 09/27/20 12:01: POC Whole Blood Glucose 92 Height (Feet): 5 Height (Inches): 9.00 Weight (Pounds): 190 Objective Poor vision CV RR lungs CTA Abd SNT. BS + E Rt Knee tender. Dressed. MAXIMINO HORNE + Kelley Wilson MD Sep 27, 2020 13:15
[2020-09-27] MEDS: Atorvastatin 80mg tab ORAL SCH (20:35)
--- NOTE | 2020-09-27 21:22 | Pulmonology Progress Note ---
Subjective ROS Limited/Unobtainable: No Constitutional: Denies: fever, chills Gastrointestinal/Abdominal: Denies: nausea, vomiting, diarrhea Musculoskeletal: Denies: pain Allergies: Coded Allergies: No Known Allergies (Verified , 02/16/18) All Systems: reviewed and negative except above Objective Last 24 Hour Vital Signs Date Time Temp Pulse Resp B/P (MAP) Pulse Ox O2 Delivery O2 Flow Rate FiO2 09/27/20 21:12 Nasal Cannula 2.0 09/27/20 20:00 98.6 95 18 137/68 (91) 95 09/27/20 18:12 73 118/70 09/27/20 16:00 96.4 73 20 118/70 (86) 94 09/27/20 12:00 97.0 73 20 123/70 (87) 96 09/27/20 09:48 76 130/83 09/27/20 09:47 76 130/83 09/27/20 09:00 Nasal Cannula 2.0 09/27/20 08:00 97.2 76 20 130/83 (99) 96 09/27/20 04:00 97.7 81 21 149/63 (91) 92 09/27/20 00:00 96.9 83 21 144/81 (102) 92 Intake and Output 09/26/20 09/27/20 19:00 07:00 Intake Total 600 ml Output Total 2000 ml Balance -2000 ml 600 ml Other 600 ml Hemodialysis UF 2000 ml # Voids 2 Laboratory Tests 09/27/20 06:01: POC Whole Blood Glucose 69L 09/27/20 06:33: POC Whole Blood Glucose 91 09/27/20 12:01: POC Whole Blood Glucose 92 09/27/20 16:46: POC Whole Blood Glucose 105 Current Medications Medications (Trade) Dose Ordered Sig/Marcelo Route PRN Reason Start Time Stop Time Status Last Admin Dose Admin Acetaminophen (Tylenol) 650 mg Q4H PRN ORAL Mild Pain (Pain Scale 1-3) 09/14/20 22:15 10/14/20 22:14 09/23/20 16:16 Amlodipine Besylate (Norvasc) 5 mg DAILY ORAL 09/24/20 18:00 10/24/20 17:59 09/27/20 09:48 Aspirin (Ecotrin) 81 mg DAILY ORAL 09/15/20 09:00 10/30/20 08:59 09/27/20 09:50 Atorvastatin Calcium (Lipitor) 80 mg BEDTIME ORAL 09/15/20 21:00 12/14/20 20:59 09/27/20 20:35 Calcium Acetate (Phoslo) 667 mg DAILY ORAL 09/15/20 09:00 12/14/20 08:59 09/27/20 09:48 Carvedilol (Coreg) 3.125 mg BID ORAL 09/15/20 09:00 10/15/20 08:59 09/27/20 18:12 Dextrose (Dextrose 50%) 25 ml Q30M PRN IV Hypoglycemia 09/14/20 22:15 12/13/20 22:14 Dextrose (Dextrose 50%) 50 ml Q30M PRN IV Hypoglycemia 09/14/20 22:15 12/13/20 22:14 Famotidine (Pepcid) 20 mg DAILY ORAL 09/15/20 09:00 12/14/20 08:59 09/27/20 09:50 Gabapentin (Neurontin) 300 mg BID ORAL 09/15/20 09:00 10/15/20 08:59 09/27/20 18:13 Gentamicin Sulfate 100 mg/ Sodium Chloride 102.5 ml @ 102.5 mls/ hr POSTHD IVPB 09/26/20 15:00 10/03/20 14:59 09/26/20 14:57 Heparin Sodium (Porcine) (Heparin 5000 units/ml) 5,000 units EVERY 12 HOURS SUBQ 09/15/20 21:00 10/30/20 20:59 09/27/20 20:36 Heparin Sodium (Porcine) (Heparin Sod 1000 units/ml 10ml) 2,000 unit ONCE PRN IV dialysis 09/28/20 09:00 09/28/20 23:59 Insulin Aspart (NovoLOG) BEFORE MEALS AND HS SUBQ 09/15/20 06:30 12/14/20 06:29 09/22/20 06:45 Insulin Detemir (Levemir) 6 units Q24H SUBQ 09/18/20 10:00 12/17/20 09:59 09/26/20 09:19 Insulin Detemir (Levemir) 12 units QHS SUBQ 09/18/20 21:00 12/17/20 20:59 09/20/20 20:41 Pantoprazole (Protonix) 40 mg DAILY ORAL 09/15/20 09:00 10/15/20 08:59 09/27/20 09:48 Sitagliptin Phosphate (Januvia) 25 mg DAILY ORAL 09/15/20 09:00 10/15/20 08:59 09/27/20 09:49 Sodium Chloride 1,000 ml @ 500 mls/hr Q2H PRN IVLG sbp<90 during hd 09/28/20 09:00 09/28/20 23:59 Vitamin D (Vitamin D) 2,000 unit DAILY ORAL 09/21/20 09:30 10/21/20 09:29 09/27/20 09:49 Assessment/Plan Assessment/Plan Pulmonary Progress Note Patient is a 69 Years Old male admitted with right knee swelling and pain with drainage. On IV AB/ID patient care discussed in detail. all acute issues reviewed in detail. patient medications reviewed. Medications noted: Current Allergies: No known allergies Past Medical History CAD Sleep Apnea hypertension hyperlipidemia type II diabetes arthritis diabetic retinopathy Glaucoma diabetic nepropathy PVD Asthma chronic renal failure- on dialysis Hospitalized due to having Hypertension Heart attack 05/2018 Surgical History: eyes cataract surgery both eyes multiple right eye surgery with 2 lenses placed and 2 glaucoma surgeries cornea replacement knee replacement 01/08/17 AV shunt left UE 2017 Double cardiac bypass surgery 05/2018 HD port in chest 01/2020 Stent placement Insulin reduced Central line ordered Objective WDWN NAD clear breath sounds bilaterally without rhonchi or wheeze [id number] without MRG NABS nontender no HSM no CC noted right knee swelling and leg edema better RUE edema nonfocal Labs: noted Assessment/Plan Assessment/Plan: Assessment ESRD possible septic knee- GNR + ho TKR hypertension ho CAD and CABG hypertension Asthma RUE edema Plan care reviewed/ transfer to [facility] if able for higher level of care venous US negative awaiting final aspiration results- proteus awaiting Ortho ID noted continue meds and monitor blood sugars follow up on culture results close follow up impression, plan, and exam edited and reviewed in detail care discussed with Best Villafana MD Sep 27, 2020 21:22
[2020-09-28] VITALS: BP 130/74
[2020-09-28 04:00] VITALS: BP 139/68
[2020-09-28] MEDS: NovoLOG Insulin Flexpen SUBQ SCH ×2 (06:26→11:30)
[2020-09-28 07:27] LABS: CALCIUM 7.6 MG/DL (8.5-10.1); CREATININE 5.9 MG/DL (0.55-1.30); PHOSPHORUS 6.2 MG/DL (2.5-4.9); POTASSIUM 5.3 MMOL/L (3.5-5.1)
[2020-09-28 08:00] VITALS: BP 128/85
[2020-09-28] MEDS ORDERED: Heparin Sod 1000 units/ml 10ml IV PRN (09:00)
[2020-09-28] MEDS: Heparin 5000 units/ml inj SUBQ SCH (09:00)
[2020-09-28] MEDS: Vitamin D 1000 units Tab ORAL SCH (09:42)
[2020-09-28] MEDS: sitaGLIPtin 25mg tab ORAL SCH (09:43)
[2020-09-28] MEDS: Aspirin EC 81mg tab ORAL SCH (09:43)
[2020-09-28] MEDS: Levemir Flexpen SUBQ SCH (09:45)
[2020-09-28] MEDS ORDERED: GENTAMICIN100 MG/10 IV (10:20)
[2020-09-28 10:49] LABS: HEMATOCRIT 29.2 % (42.0-52.0); HEMOGLOBIN 9.5 G/DL (14.2-18.0); MEAN CORPUSCULAR VOLUME 91 FL (80-99); PLATELET COUNT 95 K/UL (150-450); RED BLOOD COUNT 3.21 M/UL (4.70-6.10); RED CELL DISTRIBUTION WIDTH 18.7 % (11.6-14.8); WHITE BLOOD COUNT 4.3 K/UL (4.8-10.8)
[2020-09-28] MEDS: GENTAMICIN IVPB SCH (11:19)
[2020-09-28] MEDS: NS IVPB SCH (11:19)
[2020-09-28 12:00] VITALS: BP 131/86
--- NOTE | 2020-09-28 13:31 | Nephrology Progress Note ---
Assessment/Plan Plan Septic Rt. Knee - IV Abx. Per Dr. Franks. ESRD - HD TTS. Subjective Subjective c/o Rt. Knee pain. Objective Objective Last 24 Hour Vital Signs Date Time Temp Pulse Resp B/P (MAP) Pulse Ox O2 Delivery O2 Flow Rate FiO2 09/28/20 12:00 97.9 78 18 131/86 (101) 94 09/28/20 09:00 Nasal Cannula 2.0 09/28/20 08:00 98.6 72 19 128/85 (99) 93 09/28/20 04:00 98.8 80 20 139/68 (91) 94 09/28/20 00:00 99.0 71 20 130/74 (92) 95 09/27/20 21:12 Nasal Cannula 2.0 09/27/20 20:00 98.6 95 18 137/68 (91) 95 09/27/20 18:12 73 118/70 09/27/20 16:00 96.4 73 20 118/70 (86) 94 Intake and Output 09/27/20 09/28/20 19:00 07:00 Intake Total 480 ml 240 ml Balance 480 ml 240 ml Intake Oral 480 ml 240 ml # Voids 1 # Bowel Movements 1 1 Laboratory Tests 09/27/20 16:46: POC Whole Blood Glucose 105 09/28/20 05:00: White Blood Count 4.3L, Red Blood Count 3.21L, Hemoglobin 9.5L, Hematocrit 29.2L , Mean Corpuscular Volume 91, Mean Corpuscular Hemoglobin 29.5, Mean Corpuscular Hemoglobin Concent 32.4, Red Cell Distribution Width 18.7H, Platelet Count 95L, Mean Platelet Volume 8.4, Neutrophils (%) (Auto) , Lymphocytes (%) (Auto) , Monocytes (%) (Auto) , Eosinophils (%) (Auto) , Basophils (%) (Auto) , Neutrophils % (Manual) [Pending], Lymphocytes % (Manual) [Pending], Platelet Estimate [Pending], Platelet Morphology [Pending], Sodium Level 136, Potassium Level 5.3H, Chloride Level 101, Carbon Dioxide Level 26, Anion Gap 27H, Blood Urea Nitrogen 40H, Creatinine 5.9H, Estimat Glomerular Filtration Rate 11.6, Glucose Level 142H, Calcium Level 7.6L, Phosphorus Level 6.2H 09/28/20 09:41: POC Whole Blood Glucose [Pending] Height (Feet): 5 Height (Inches): 9.00 Weight (Pounds): 190 Objective Poor vision CV RR lungs CTA Abd SNT. BS + E Rt Knee tender. Dressed. MAXIMINO AVF + Kelley Wilson MD Sep 28, 2020 13:31
--- NOTE | 2020-09-29 12:45 | Discharge Summary ---
Discharge Summary Discharge Summary _ DATE OF ADMISSION: 09/14/2020 DATE OF DISCHARGE: 09/28/2020 DISCHARGED BY: Dr. Franks REASON FOR ADMISSION: 69 years old male with past medical history of hypertension, diabetes mellitus, diabetic retinopathy, arthritis, right knee replacement in February 2017, was sent f rom the doctor's office due to right knee swelling and drainage. He denied fever and chills. He denied any pain. He was not taking any medication at this time. Last dialysis was earlier that morning. Upon evaluation patient was leukopenic with WBC 3.9, hemoglobin 12.3k, hematocrit 37.8 , platelet count 134. ESR 80. Potassium 3.3. BUN 8, creatinine 3.3, consistent with known history of end-stage renal disease. Glucose 128. Patient appeared hemodynamically stable ; pulse oximetry was stable on room air , no fevers. X-ray of the right knee revealed diffuse soft tissue swelling around the knee joint , suspicious for cellulitis. CT scan of the right knee showed status post right total knee arthroplasty. Extensive subcutaneous soft tissue edema. There was an abnormal soft tissue versus a complex fluid collection , measuring 6.2 x 3.7 cm. The appearance was not consistent with abscess. May represent phlegmon , hematoma or coalescing edema. Moderate joint effusion versus synovial thickening. In ED patient received empiric antibiotic and admitted with right knee infection and end-stage renal disease with a concern over septic knee. CONSULTANTS: orthopedic surgeon Dr. Moreno ID specialist Dr. Salas aviation project manager Dr. Mccarthy [facility] COURSE: Patient admitted to medical surgical floor and started on empiric antibiotic . ID specialist followed. Venous duplex bilateral lower extremity revealed no evidence of acute DVT. Pain management was addressed as needed. Patient undergone attempted ultrasound-guided aspiration of the right knee by interventional radiology. Approximately 7 cc of fluid was aspirated and sent for analysis. Per Interventional radiologist possibly hematoma , which may be superinfected. Wound culture revealed Proteus mirabilis. Antibiotic optimized as per ID specialist recommendation. Per orthopedic surgeon patient had right knee periprosthetic infection. Surgeon recommended two steps procedure. Specifically, he recommended removal of the implant with placement of antibiotic spacer and then subsequently 6 weeks of IV antibiotics. Once the infection clears up , then he would be candidate for a revision of total knee arthroplasty. Orthopedic surgeon recommended transfer patient to at [facility], for a higher level of care . Hemodialysis provided as per aviation project manager recommendation with close monitoring of volumes ,renal parameters and electrolytes. Patient noted to have right upper extremity edema. Patient undergone venous duplex, which revealed right internal jugular thrombus and proximal right subclavian thrombus CT of the head revealed no evidence of acute intracranial bleeding or mass- effect. Left shoulder x-ray and left hip /pelvis X ray were negative. COVID-19 by PCR on 09/20 was not detected . COVID-19 by PCR on 09/24 was positive. Patient was on low-flow oxygen 2 L via nasal cannula. No steroids were started. Respiratory status was stable. Blood pressure was managed with calcium channel real, beta-real. Aspirin continued. Blood pressure was stable with current medication regimen. Blood sugar was managed with long-acting insulin, premeal short acting insulin and sliding scale of insulin as needed. GI prophylaxis provided. Patient noted to have right upper extremity edema. Patient subsequently undergone venous duplex of right upper extremity ,which revealed thrombus in the right internal jugular and thrombus in the proximal right subclavian vein. Given impending surgery, no anticoagulation was started prior to surgery. Transfer was arranged to [facility] for surgery. Patient was stable for transfer FINAL DIAGNOSES: Right knee arthroplasty infection with Proteus Septic knee/right knee periprosthetic infection History of right total knee replacement COVID-19 pneumonia Hypertension History of coronary artery disease and CABG Asthma ESRD, on hemodialysis Diabetes mellitus Hypertension DISCHARGE MEDICATIONS: See Medication Reconciliation list. DISCHARGE INSTRUCTIONS: Patient was transferred to [facility] for surgery. I have been assigned to dictate discharge summary for this account. I was not involved in the patient's management. Susie Rodriguez NP Sep 29, 2020 12:45
== END 2020-09-28 16:00 | disposition short-term general hospital (02) | DRG 559 ==
LOC: EMR 16:00 → 3E 17:50 → EDBEDREQ 19:41 → 3E 21:17 → 4E 09-20 18:40
PROC: 0S9C3ZZ Drainage of Right Knee Joint, Percutaneous Approach (ICD-10-PCS; principal; 2020-09-15)
PROC: 5A1D70Z Performance of Urinary Filtration, Intermittent, Less than 6 Hours Per Day (ICD-10-PCS; 2020-09-16)
DX: T84.53XA Infection and inflammatory reaction due to internal right knee prosthesis, initial encounter (principal); N18.6 End stage renal disease; U07.1 COVID-19; J12.89 Other viral pneumonia; M00.861 Arthritis due to other bacteria, right knee; I13.2 Hypertensive heart and chronic kidney disease with heart failure and with stage 5 chronic kidney disease, or end stage renal disease; I82.C11 Acute embolism and thrombosis of right internal jugular vein; I82.B11 Acute embolism and thrombosis of right subclavian vein; Y83.8 Other surgical procedures as the cause of abnormal reaction of the patient, or of later complication, without mention of misadventure at the time of the procedure; E11.22 Type 2 diabetes mellitus with diabetic chronic kidney disease; E11.319 Type 2 diabetes mellitus with unspecified diabetic retinopathy without macular edema; Z79.4 Long term (current) use of insulin; H40.9 Unspecified glaucoma; I25.10 Atherosclerotic heart disease of native coronary artery without angina pectoris; Z95.1 Presence of aortocoronary bypass graft; B96.4 Proteus (mirabilis) (morganii) as the cause of diseases classified elsewhere; Z79.82 Long term (current) use of aspirin; H54.7 Unspecified visual loss; I50.9 Heart failure, unspecified; Z99.2 Dependence on renal dialysis; J44.9 Chronic obstructive pulmonary disease, unspecified; D63.1 Anemia in chronic kidney disease; I73.9 Peripheral vascular disease, unspecified; I25.2 Old myocardial infarction
CPT/HCPCS: 36415; 70450; 73502; 80048; 80053; 80202; 82962; 83036; 84100; 85007; 85025; 85610; 85651; 85730; 86140; 86706; 86850; 86900; 86901; 87070; 87081; 87181; 87205; 93970; 93971; 96365; 96367; 99285; J1815; S5561